=== PATIENT | male | born 1945 | race Caucasian/White ===

== ENCOUNTER 2021-05-18 13:36 | Outpatient (CLI) | payer MEDICARE, SELFPAY ==
--- NOTE | ~2021-05-18 | MR_ITS ---
EXAMINATION: MR abdomen wo/w con DATE: 05/18/2021 15:00 INDICATION: Kidney mass. TECHNIQUE: Magnetic resonance imaging (MRI) of the abdomen was performed without and with 15 mL Multi Radha intravenous contrast. Sequences included coronal T2-weighted FS FSE, coronal and axial FIESTA F S, coronal LAVA-flex, axial LAVA, axial T2-weighted FSE, axial T1-weighted dual-echo FSPGR, axial STI R FSE, and axial DWI. Postcontrast sequences included coronal LAVA-flex and a time course of axial LA VA. COMPARISON: CT lumbar spine 12/23/2016 FINDINGS: The liver and spleen are normal. There are changes of cholecystectomy. The pancreas are normal. There are chronic masses in the adrenal glands measuring up to 18 mm on the left containing microscopic fa t, consistent with adenomas. There are simple cysts and hemorrhagic cysts in the kidneys measuring up to 13 mm on the right. There is a 2.3 cm enhancing mass in right kidney upper pole directed laterall y, consistent with renal cell carcinoma. There are no dilated loops of bowel. There are no pathologic ally enlarged lymph nodes. There is no free intraperitoneal fluid. There are changes of posterior fus ion procedure in lumbar spine. IMPRESSION: 1. 2.3 cm enhancing mass in right kidney, consistent with renal cell carcinoma. Reviewed, dictated and finalized at location A.
[2021-05-18 14:26] LABS: Estimated Glomerular Filt Rate 49
== END 2021-05-18 13:37 | disposition home or self-care (01) ==
PROVIDERS: PCP Internal Medicine Geriatric Medicine; Visit Provider Urology
DX: N28.89 Other specified disorders of kidney and ureter (principal)
CPT/HCPCS: 74183; A9577

== ENCOUNTER 2022-05-07 19:03 | Emergency (ER) | payer MEDICARE, SELFPAY ==
[2022-05-07 19:08] VITALS: BP 151/90; PULSE 86; RESP 18; TEMP 36.3; O2SAT 98
--- NOTE | 2022-05-07 19:10 | ECG_ITS ---
Measurements Intervals [place] Rate: 80 P: 35 NC: 155 QRS: -52 QRSD: 150 T: 1 QT: 398 QTc: 462 Interpretive Statements SINUS RHYTHM RIGHT BUNDLE BRANCH BLOCK LEFT ANTERIOR FASCICULAR BLOCK BASELINE ARTIFACT- I, II, III, AVR, AVL, AVF, V3-V6 Electronically Signed On 05-08-2022 6:19:33 CDT by Sonny Dos Santos D.O.
--- NOTE | 2022-05-07 19:20 | ED.GENADULT ---
HPI - General Adult General Chief complaint: Psychiatric Symptoms Stated complaint: mental health eval Time Seen by Provider: 05/07/22 19:06 History of Present Illness HPI narrative: 76-year-old male presented to the emergency department for evaluation after making suicidal statements. Patient states over the last few months he has had increasing life stresses due to his 's health. She did have a fractured ankle and spent a prolonged amount of time at a longterm and that at his daughter's house. Patient states that he was at home alone with a dog during all that time and bonded with the dog. He states that today his was attempting to move a dresser and ultimately the dresser fell and landed on the dog potentially critically injuring it. Patient states he was too upset by the incident that he did not know how to process it. Patient reported that it may suicidal statements. Patient states he does have access to pills and does have a gun in the house. Family states that the patient did go for his guns and pills. 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 Related Data Allergies Allergy/AdvReac Type Severity Reaction Status Date / Time No Known Allergies Allergy Unverified 11/12/16 15:26 Review of Systems Review of Systems: CONSTITUTIONAL: Denies fever, chills, or sweats. EYES: Denies visual changes, redness, or discharge. ENT: Denies rhinorrhea, congestion, sore throat, or otalgia. CARDIOVASCULAR: Denies chest pain, palpitations, or edema. RESPIRATORY: Denies cough or dyspnea. GASTROINTESTINAL: Denies abdominal pain, nausea, vomiting, or diarrhea. GENITOURINARY: Denies dysuria or hematuria. SKIN: Denies rash or itching. MUSCULOSKELETAL: Denies back pain, joint pain, or myalgia. NEUROLOGIC: Denies headache, numbness, or weakness. PSYCHIATRIC: History of depression, no prior suicidal thoughts PMFSH Social History Social History Substance use type: does not use Exam Narrative: APPEARANCE: Well appearing, no pain, no distress, well-nourished. HEAD: normocephalic, atraumatic. EYES: PERRLA/EOMI, conjunctivae clear. NOSE: Normal no drainage. THROAT: Pharynx clear, no exudate. NECK: Supple. No adenopathy, no masses. RESPIRATORY: Airway patent, respirations nonlabored. Clear to auscultation bilaterally, no rales, rhonchi, wheezing. CARDIOVASCULAR: Regular rate and rhythm without murmurs rubs or gallops. ABDOMINAL: Soft, nontender, nondistended, normal bowel sounds MUSCULOSKELETAL: Moves all extremities. Strength/ROM intact, No edema, No calf tenderness. NEURO: Alert. Cranial nerves II through XII intact. Grossly intact SKIN: warm, dry. Normal Color Psych: Tearful Course Course Emergency Course: Patient was evaluated by the crisis counselor and deemed to be safe for discharge to home. This plan was discussed with family and they were also comfortable with the plan. Order for clear and present danger was placed. Patient received some Ativan in the emergency department he felt this was helpful. Patient was discharged with a small prescription for Ativan. Reevaluation(s) Reevaluation #1: Patient is medically cleared for inpatient psychiatric hospitalization as needed. Reevaluation #2: Patient was eval by the crisis counselor and was deemed safe for discharge to home. Patient did sign a safety agreement. Crisis counselor did discuss this with the patient's daughter. They do state that the firearms were removed from the home. Vital Signs Vital signs: Vital Signs Temperature 97.4 F L 05/07/22 19:08 Pulse Rate 86 05/07/22 19:08 Respiratory Rate 18 05/07/22 19:08 Blood Pressure 151/90 H 05/07/22 19:08 Pulse Oximetry 98 05/07/22 19:08 Temperature 97.4 F L 05/07/22 19:08 Pulse Rate 96 05/07/22 22:52 Respiratory Rate 18 05/07/22 22:52 Blood Pressure 152/90 H 05/07/22 22:52 Pulse Oximetry 97 05/07/22 22:52 Medical Decision Making Vital Signs Vital Signs: Daisy
[2022-05-07 19:25] LABS: Basophils Absolute Auto 0.1 K/mm3 (0.0-0.1); Basophils Percent Auto 0.5 % (0.2-1.2); Eosinophils Absolute Auto 0.3 K/mm3 (0-0.3); Eosinophils Percent Auto 2.4 % (0-4.4); Hematocrit 38.6 % (42.0-52.0); Hemoglobin 12.8 g/dL (14.0-18.0); Immature Granulocyte Absolute 0.04 K/mm3 (0.00-0.031); Immature Granulocyte Percent A 0.3 % (0-0.5); Lymphocytes Absolute Auto 1.34 K/mm3 (0.9-3.2); Lymphocytes Percent Auto 9.9 % (18.3-44.2); Mean Corpuscular HGB Conc 33.2 g/dl (32-36); Mean Corpuscular Hemoglobin 31.1 pg (26-34); Mean Corpuscular Volume 93.7 fl (80-100); Mean Platelet Volume 9.6 fl (7.4-10.4); Monocytes Absolute Auto 0.8 K/mm3 (0.1-0.6); Monocytes Percent Auto 5.6 % (2.6-8.5); Neutrophils Percent Auto 81.3 % (45.5-73.1); Platelet Count Result 368 k/mm3 (150-375); Red Blood Count 4.12 M/mm3 (4.6-6.20); Red Cell Distribution Width 13.4 % (11.5-14.5); White Blood Count 13.5 K/mm3 (4.5-10.0)
[2022-05-07 19:43] LABS: Acetaminophen < 10 ug/mL (10-30); Alanine Aminotransferase 36 U/L (6-50); Albumin Level 4.4 g/dL (3.5-5.1); Alkaline Phosphatase 85 U/L (38-126); Anion Gap 7 mmol/L (8-16); Aspartate Amino Transferase 35 U/L (17-59); Bilirubin,Total 0.4 mg/dL (0.2-1.3); Blood Urea Nitrogen 17 mg/dL (9-20); Calcium 8.6 mg/dL (8.4-10.2); Carbon Dioxide 25 mmol/L (22-30); Chloride 105 mmol/L (98-107); Estimated Glomerular Filt Rate 59; Ethanol < 10 mg/dL (<10); Glucose 149 mg/dL (65-110); Potassium 3.6 mmol/L (3.4-5.0); Salicylate < 1.0 mg/dL (2-20); Sodium 137 mmol/L (137-145)
[2022-05-07] MEDS: LORazepam (*CRX) 0.5 MG TABLET PO (19:47)
[2022-05-07 20:03] LABS: SARS-CoV-2 RNA PCR Negative
[2022-05-07 20:39] LABS: Appearance Urine Clear (Clear); Bilirubin Urine Negative (Negative); Blood Urine Negative (Negative); Color Urine Yellow (Yellow); Glucose Urine UA Negative (Negative); Ketones Urine 1+ mg/dL (Negative); Leukocyte Esterase Ur Negative LEU/UL (Negative); Nitrate Urine Negative (Negative); Protein Urine 1+ mg/dL (Negative); Specific Grav Ur >= 1.030 (1.001-1.035); Urobilinogen Urine 0.2 mg/dL (<2.0); pH Urine 5.5 (5.0-9.0)
[2022-05-07 20:49] LABS: Add Urine Microscopic? YES; Bacteria Urine Trace /hpf; Calcium Oxalate Crystals Urine Present /hpf; Mucus Urine Rare /lpf; WBC Urine 0-3 /hpf
[2022-05-07 20:53] LABS: Amphetamine Screen Urine Negative (Negative); Barbiturate Screen Urine Negative (Negative); Benzodiazepines Screen Urine Negative (Negative); Cannabinoid Screen Urine Negative (Negative); Cocaine Screen Urine Negative (Negative); Methadone Screen Urine Negative (Negative); Opiate Screen Urine Negative (Negative); Phencyclidine Screen Urine Negative (Negative)
--- NOTE | 2022-05-07 20:56 | PC.NURSE ---
Per MACIE Ellison, pt medically clear for evaluation.
--- NOTE | 2022-05-07 21:19 | PC.NURSE ---
Crisis immigration case worker ETA approx. 15min.
--- NOTE | 2022-05-07 21:48 | PC.NURSE ---
crisis at bedside with pt at this time.
[2022-05-07 22:52] VITALS: BP 152/90; PULSE 96; RESP 18; O2SAT 97
== END 2022-05-07 22:46 | disposition home or self-care (01) ==
PROVIDERS: Emergency Provider Emergency Medicine; PCP Family Medicine
DX: F32.9 Major depressive disorder, single episode, unspecified (principal); Z20.822 Contact with and (suspected) exposure to COVID-19
CPT/HCPCS: 36415; 80053; 80307; 81001; 84443; 85025; 93005; 99284; A9270; C9803; U0003; U0005

== ENCOUNTER 2022-08-23 08:31 | Outpatient (CLI) | payer MEDICARE, SELFPAY ==
--- NOTE | ~2022-08-23 | CT_ITS ---
EXAMINATION: CT lung screening DATE: 08/23/2022 09:01 INDICATION: lung cancer screening TECHNIQUE: Computed tomography (CT) of the chest was performed without intravenous contrast. Addition al 3D reconstructions utilizing coronal maximum intensity projection (MIP) were performed. Automated exposure control and iterative reconstruction technique were employed. The dose-length product was 17 8.45 mGy-cm. COMPARISON: None FINDINGS: Moderate emphysema in the upper lobes. Mild discoid atelectasis in the lingula in addition to a clinton l variant accessory fissure between the lingula and left upper lobe. There is additional atelectasis at the anterolateral lingula. Additional accessory fissure between the superior segment and basilar s egments of the right lower lobe. 2-3 mm left upper lobe nodule on series 4, image 49. 4 mm triangular intrafissural lymph node at the junction of the right major and minor fissures and couple additional tiny intrafissural lymph nodes on the left, the larger measuring 2-3 mm. No pneumonia, pulmonary ruthann ma or pleural effusion. Heart size is normal. Atherosclerotic coronary artery calcification. Very sma ll pericardial effusion. Fusiform ascending thoracic aortic aneurysm measuring up to 4.4 x 4.3 cm. No pathologically enlarged thoracic lymphadenopathy. Cholecystectomy clips at the gallbladder fossa. Postoperative change of prior partial nephrectomy at the upper pole of the right kidney. Bilateral adrenal adenomas measuring up to 1.6 cm on the right an d 1.7 cm and 2.0 cm on the left, which demonstrate signal dropout on opposed phase imaging on MRI celia ed 05/18/2021. Incompletely visualized C6-C7 anterior and posterior spinal fusion with lateral mass sc rews seen bilaterally at C6. Severe spondylosis at C6-C7. Mild to moderate thoracic spondylosis with chronic compression fractures with mild anterior vertebral body height loss at T3 and T7. IMPRESSION: 1. Lung-RADS category 2: Benign appearance or behavior. Continue annual screening with noncontrast lo w-dose chest CT in 12 months. 2. Moderate emphysema. 3. 4.4 cm ascending thoracic aortic aneurysm. 4. Very small pericardial effusion. Reviewed, dictated and finalized at location A. IMPRESSION: 1. Lung-RADS category 2: Benign appearance or behavior. Continue annual screeni ng with noncontrast low-dose chest CT in 12 months. 2. Moderate emphysema. 3. 4.4 cm ascending thoracic aortic aneurysm. 4. Very small pericardial effusion.
--- NOTE | ~2022-08-23 | CT_ITS ---
EXAMINATION: CT cervical spine wo con DATE: 08/23/2022 09:00 INDICATION: Neck pain. TECHNIQUE: Computed tomography (CT) of the cervical spine was performed without intravenous contrast. Automated exposure control and iterative reconstruction technique were employed. The dose-length pro duct was 457.18 mGy-cm. COMPARISON: None FINDINGS: There is 2 mm anterolisthesis of C7 on T1. Vertebral body heights are normal. There is inte rbody fusion at C3-C4 and C5-C6. There is mildly decreased disc height at C4-C5, severely decreased d isc height at C6-C7, and mildly decreased disc height at C7-T1. There are laminectomies at C3, C4, an d C5. There are changes of posterior fusion procedure from C3 to C6 with lateral mass screws. The fol lowing disc levels are specifically discussed: C2-C3: There is mild bilateral uncovertebral joint osteoarthritis. There is severe bilateral facet karrie int osteoarthritis. There is moderate right and mild left neural foraminal stenosis. There is mild ce ntral canal stenosis. C3-C4: There is moderate bilateral uncovertebral joint hypertrophy. There is mild bilateral facet zohaib nt hypertrophy. There is moderate bilateral neural foraminal stenosis. There is mild central canal st enosis with posterior decompression. C4-C5: There is mild bilateral uncovertebral joint osteoarthritis. There is no facet joint hypertroph y. There is no neural foraminal stenosis. There is no central canal stenosis. C5-C6: There is moderate bilateral uncovertebral joint hypertrophy. There is mild bilateral facet zohaib nt hypertrophy. There is mild right neural foraminal stenosis. There is mild central canal stenosis. C6-C7: There is severe bilateral uncovertebral joint osteoarthritis. There is severe bilateral facet joint osteoarthritis. There is mild bilateral neural foraminal stenosis. There is mild central canal stenosis. C7-T1: There is no uncovertebral joint osteoarthritis. There is severe bilateral facet joint osteoart hritis. There is mild bilateral neural foraminal stenosis. There is no central canal stenosis. IMPRESSION: 1. Severe cervical spondylosis. 2. Posterior fusion procedure from C3 to C6. Reviewed, dictated and finalized at location B.
== END 2022-08-23 08:32 | disposition home or self-care (01) ==
PROVIDERS: PCP Family Medicine; Visit Provider Physician Assistant Medical
DX: R06.00 Dyspnea, unspecified (principal); Z87.891 Personal history of nicotine dependence; Z98.890 Other specified postprocedural states; J43.9 Emphysema, unspecified; I31.39 Other pericardial effusion (noninflammatory); I71.20 Thoracic aortic aneurysm, without rupture, unspecified; M47.892 Other spondylosis, cervical region; Z98.1 Arthrodesis status
CPT/HCPCS: 71271; 72125

== ENCOUNTER 2022-10-06 10:36 | Outpatient (CLI) | payer MEDICARE, SELFPAY ==
--- NOTE | ~2022-10-06 | XR_ITS ---
XR chest 2V DATE: 10/06/2022 10:58 INDICATION: Malignant neoplasm of right kidney TECHNIQUE: 2 views COMPARISON: 08/23/2022 CT lung screening FINDINGS: Normal heart size. Is aortic calcification and unfolding. No hilar or mediastinal enlargeme nt. No pulmonary infiltrate or consolidation, pleural effusion or pulmonary vascular congestion or pn eumothorax. Chronic loss in height and anterior wedging of multiple thoracic vertebral bodies and degenerative sp urring of the thoracic spine. Old healed right rib fractures. Postoperative change of the cervical spine. Osteopenia. IMPRESSION: No active cardiopulmonary disease Reviewed, dictated and finalized at location B. NAL CLERK
--- NOTE | ~2022-10-06 | CT_ITS ---
EXAMINATION: CT abdomen wo/w con DATE: 10/06/2022 11:11 INDICATION: Leg and neoplasm of the right kidney. TECHNIQUE: Computed tomography (CT) of the abdomen and pelvis was performed without and with 100 cc O mnipaque 350 intravenous contrast. The dose-length product was 1061.91 mGy-cm. Automated exposure con trol and iterative reconstruction technique were employed. COMPARISON: None. FINDINGS: There are changes along the posterior lateral margin of the right kidney, consistent with p revious partial nephrectomy. There is a subtle 1 cm immediate density lesion along the lateral margin of the right kidney. There are additional small low-density lesions in both kidneys, many of which a re too small to characterize. The liver, spleen, pancreas, right adrenal gland are unremarkable. There is a low-density left adrena l mass measuring 2 cm, compatible with adenoma. Nonobstructive bowel gas pattern. No lymphadenopathy. There is atherosclerosis of the aorta. There is moderate lumbar spondylosis with grade 1 spondylolis thesis of the lower lumbar spine. No focal lytic or blastic lesions. IMPRESSION: 1. Intermediate density 1 cm right renal mass laterally. Recommend correlation with MRI to exclude un derlying abnormal enhancement. Reviewed, dictated and finalized at location A. AGENT IMPRESSION: 1. Intermediate density 1 cm right renal mass laterally. Recommend correlation with MRI to exclude underlying abnormal enhancement.
[2022-10-06 11:02] LABS: Estimated Glomerular Filt Rate 49
== END 2022-10-06 10:37 | disposition home or self-care (01) ==
PROVIDERS: PCP Family Medicine; Visit Provider Urology
DX: C64.1 Malignant neoplasm of right kidney, except renal pelvis (principal)
CPT/HCPCS: 71046; 74170; Q9967

== ENCOUNTER 2022-10-12 14:36 | Outpatient (CLI) | payer MEDICARE, SELFPAY ==
--- NOTE | 2022-10-12 14:56 | ECHO_ITS ---
Patient Info Name: Juan Montes Age: 77 years : 1945 Gender: Male Ht: 67 in Wt: 190 lbs BSA: 2.04 m2 HR: 76 bpm BP: 147 / 87 mmHg Technical Quality: Good Exam Date: 10/12/2022 3:28 PM Exam Location: [facility] Patient Status: Outpatient Admit Date: 10/12/2022 Staff Ordering Physician: Bailey Campos Software Validation Engineer: Whit Live RDCS Attending Provider: Ani Das MD Referring Physician: Beth CHAPMAN; Exam Type: CA echo doppler color flow Study Info Indications I71.2 - Thoracic aortic aneurysm, without rupture Complete two-dimensional, color flow and Doppler transthoracic echocardiogram is performed. Summary 1. Complete two-dimensional, color flow and Doppler transthoracic echocardiogram is performed. 2. Left ventricular chamber dimension is normal. 3. Left ventricular systolic function is normal, estimated at 60-65%. 4. The left ventricular diastolic function is grade I diastolic dysfunction. 5. E/e' 7 is not elevated. 6. There is mild aortic valve sclerosis. 7. The mitral valve has mildly calcified annulus. 8. The aortic root size at the sinus of Valsalva is borderline dilated at 3.9 cm. Left Ventricle E/e' 7 is not elevated. Left ventricular chamber dimension is normal. Left ventricular systolic function is normal, estimated at 60-65%. The left ventricular diastolic function is grade I diastolic dysfunction. Right Ventricle Right ventricular systolic function is normal and with normal TAPSE 1.9 cm. Right ventricular chamber dimension is normal. Left Atria Left atrial chamber dimension is normal. Right Atria Right atrial chamber dimension is normal. Aortic Valve The aortic valve is trileaflet. There is mild aortic valve sclerosis. There is no aortic valve stenosis. There is no aortic valve regurgitation. Pulmonic Valve There is no pulmonic regurgitation. Mitral Valve The mitral valve has mildly calcified annulus. There is no mitral valve stenosis. There is no mitral valve regurgitation. Tricuspid Valve There is no tricuspid valve regurgitation. Pericardium/Pleural There is no pericardial effusion. Inferior Vena Cava Normal inferior vena cava with >50% collapse upon inspiration consistent with normal right atrial pressure, 5 mmHg. Aorta The aortic root size at the sinus of Valsalva is borderline dilated at 3.9 cm. Left Ventricular Outflow Tract Name Value Normal LVOT 2D LVOT Diameter 2.0 cm LVOT Doppler LVOT Peak Gradient 5 mmHg LVOT Mean Gradient 3 mmHg LVOT VTI 19 cm LVOT VTI/AV VTI Ratio 0.8 LVOT Stroke Volume 60 ml LVOT CO 4.1 l/min LVOT CI 2.0 l/min/m2 Mitral Valve Name Value Normal MV Doppler
== END 2022-10-12 14:37 | disposition home or self-care (01) ==
PROVIDERS: PCP Family Medicine; Visit Provider Family Medicine
DX: I71.20 Thoracic aortic aneurysm, without rupture, unspecified (principal)
CPT/HCPCS: 93306

== ENCOUNTER 2022-10-24 13:28 | Outpatient (CLI) | payer MEDICARE, SELFPAY ==
[2022-10-24 14:03] LABS: Hematocrit 39.9 % (42.0-52.0); Hemoglobin 13.4 g/dL (14.0-18.0); Mean Corpuscular HGB Conc 33.6 g/dl (32-36); Mean Corpuscular Hemoglobin 31.3 pg (26-34); Mean Corpuscular Volume 93.2 fl (80-100); Mean Platelet Volume 9.6 fl (7.4-10.4); Platelet Count Result 364 k/mm3 (150-375); Red Blood Count 4.28 M/mm3 (4.6-6.20); Red Cell Distribution Width 12.9 % (11.5-14.5)
[2022-10-24 16:01] LABS: Hemoglobin A1C 5.5 % (<5.7)
[2022-10-24 18:12] LABS: Alanine Aminotransferase 33 U/L (6-50); Albumin Level 4.3 g/dL (3.5-5.1); Alkaline Phosphatase 76 U/L (38-126); Anion Gap 7 mmol/L (8-16); Aspartate Amino Transferase 35 U/L (17-59); Bilirubin,Total 0.7 mg/dL (0.2-1.3); Blood Urea Nitrogen 15 mg/dL (9-20); Calcium 8.7 mg/dL (8.4-10.2); Carbon Dioxide 28 mmol/L (22-30); Chloride 107 mmol/L (98-107); Cholesterol 164 mg/dL (0-200); Estimated Glomerular Filt Rate > 60; Glucose 117 mg/dL (65-110); HDL Direct 32 mg/dL; Potassium 3.9 mmol/L (3.4-5.0); Sodium 142 mmol/L (137-145); Triglycerides 125 mg/dL (<150)
[2022-10-24 18:24] LABS: LDL Cholesterol Direct 102 mg/dL
[2022-10-24 18:41] LABS: Prostate Specific Antigen 0.4 ng/mL (< OR = 4.0)
== END 2022-10-24 13:29 | disposition home or self-care (01) ==
PROVIDERS: PCP Family Medicine; Visit Provider Physician Assistant Medical
DX: R53.83 Other fatigue (principal); R73.03 Prediabetes; Z12.5 Encounter for screening for malignant neoplasm of prostate; E78.2 Mixed hyperlipidemia
CPT/HCPCS: 36415; 80053; 80061; 83036; 84153; 85027; G0103

== ENCOUNTER 2022-11-29 14:34 | Outpatient (CLI) | payer MEDICARE, SELFPAY ==
--- NOTE | ~2022-11-29 | MR_ITS ---
EXAMINATION: MR abdomen wo/w con DATE: 11/29/2022 15:51 INDICATION: Malignant neoplasm of the right kidney. TECHNIQUE: Magnetic resonance imaging (MRI) of the abdomen was performed without and with 17 mL Multi kelly intravenous contrast. Sequences included coronal T2-weighted SS-FSE, coronal and axial FS 2D-F IESTA, axial STIR FSE, axial T2-weighted SS-FSE, axial T2-weighted FS SS-FSE, axial diffusion-weighte d SE, axial dual-echo T1-weighted FSPGR, and axial and coronal T1-weighted LAVA. Postcontrast axial T 1-weighted LAVA images were obtained in a time course. Postcontrast coronal T1-weighted LAVA images w ere obtained. COMPARISON: CT dated 10/06/2022 and MRI dated 05/18/2021 FINDINGS: Heart size is normal. No pericardial or pleural effusion. Status post cholecystectomy with magnetic f ield artifact associated with cholecystectomy clips the gallbladder fossa. Liver, spleen and pancreas are normal. There is signal dropout on opposed phase images consistent with intracellular lipid with in bilateral adrenal adenomas which measure 2.1 cm on the left and 1.6 cm on the right. Postoperative change of prior partial nephrectomy at the upper pole of the left kidney with subtle linear regions of metallic magnetic field artifact associated with likely suture lines. There are few small bilatera l nonenhancing renal cysts, the majority simple appearing T2 hyperintense cysts as well as a few T1 h yperintense, T2 hypointense proteinaceous/hemorrhagic cysts. Furthermore these all appear unchanged s iva the previous MRI dated 06/05/2021obtained prior to the nephrectomy. This includes the lesion of c oncern identified on the prior CT laterally in the right kidney position inferior to the nephrectomy bed. No new abnormal enhancing soft tissue to suggest residual or locally recurrent disease. No patho logically enlarged abdominal lymphadenopathy. Visualized portions of the bowels are unremarkable. Add itional metallic magnetic field artifact associated with bilateral vertical tylor and pedicle screws fo r and L4-L5 posterior spinal fusion. Normal bone marrow signal with no abnormally enhancing lesions. 1. Expected postoperative changes of a partial nephrectomy at the upper pole of the right kidney with no evident residual, locally recurrent or metastatic disease. Reviewed, dictated and finalized at location L. R TAXI BOAT MATE
== END 2022-11-29 14:35 | disposition home or self-care (01) ==
PROVIDERS: PCP Family Medicine; Visit Provider Urology
DX: C64.1 Malignant neoplasm of right kidney, except renal pelvis (principal); Z90.5 Acquired absence of kidney
CPT/HCPCS: 74183; A9577

== ENCOUNTER 2023-04-17 08:46 | Outpatient (CLI) | payer MEDICARE, SELFPAY ==
--- NOTE | ~2023-04-17 | CT_ITS ---
EXAMINATION: CTA chest DATE: 04/17/2023 09:34 INDICATION: Aneurysm of ascending aorta without rupture. TECHNIQUE: Computed tomographic angiography (CTA) of the chest was performed with 100 mL Omnipaque-35 0 intravenous contrast. Automated exposure control and iterative reconstruction technique were employ ed. The dose-length product was 693.61 mGy-cm. Maximum intensity projection 3D-reconstructions of the aorta and other arteries were constructed by the technologist on a separate workstation. COMPARISON: Chest CT 08/23/2022 FINDINGS: There is moderate emphysema. There is mild atelectasis bilaterally. No pleural effusion. Th e heart size is normal. There are coronary artery calcifications. No pericardial effusion. Aortic ath erosclerosis is noted. The aorta measures 4.0 cm at the sinuses of Valsalva, 3.5 cm at the sinotubula r junction, 4.2 cm in the mid ascending aorta, 3.3 cm at the aortic isthmus, and 3.1 cm in the mid de scending aorta. There are changes of cholecystectomy. There is focal scarring in right kidney that ma y be changes of ablation or partial nephrectomy. There are old fractures of right sixth and seventh r ibs. There is severe cervical spondylosis and mild thoracic spondylosis. There is mild chronic height loss of multiple vertebral bodies. IMPRESSION: 1. Stable ectasia of ascending aorta measuring 4.2 cm. 2. Moderate emphysema. Reviewed, dictated and finalized at location A.
[2023-04-17 09:17] LABS: Estimated Glomerular Filt Rate 54
== END 2023-04-17 08:47 | disposition home or self-care (01) ==
PROVIDERS: PCP Family Medicine; Visit Provider Thoracic Surgery (Cardiothoracic Vascular Surgery)
DX: I71.21 Aneurysm of the ascending aorta, without rupture (principal); J43.9 Emphysema, unspecified
CPT/HCPCS: 71275; Q9967

== ENCOUNTER 2023-05-10 10:51 | Outpatient (CLI) | payer MEDICARE, SELFPAY ==
[2023-05-10 11:50] LABS: Hematocrit 41.1 % (42.0-52.0); Hemoglobin 13.6 g/dL (14.0-18.0); Mean Corpuscular HGB Conc 33.1 g/dl (32-36); Mean Corpuscular Hemoglobin 30.5 pg (26-34); Mean Corpuscular Volume 92.2 fl (80-100); Mean Platelet Volume 10.1 fl (7.4-10.4); Platelet Count Result 325 k/mm3 (150-375); Red Blood Count 4.46 M/mm3 (4.6-6.20); Red Cell Distribution Width 13.2 % (11.5-14.5); White Blood Count 10.2 K/mm3 (4.5-10.0)
[2023-05-10 11:51] LABS: Alanine Aminotransferase 24 U/L (6-50); Albumin Level 4.2 g/dL (3.5-5.1); Alkaline Phosphatase 70 U/L (38-126); Anion Gap 5 mmol/L (8-16); Aspartate Amino Transferase 26 U/L (17-59); Bilirubin,Total 0.7 mg/dL (0.2-1.3); Blood Urea Nitrogen 21 mg/dL (9-20); Calcium 8.9 mg/dL (8.4-10.2); Carbon Dioxide 27 mmol/L (22-30); Chloride 107 mmol/L (98-107); Cholesterol 188 mg/dL (0-200); Estimated Glomerular Filt Rate 54; Glucose 118 mg/dL (65-110); HDL Direct 28 mg/dL; Potassium 3.9 mmol/L (3.4-5.0); Sodium 139 mmol/L (137-145); Triglycerides 222 mg/dL (<150)
[2023-05-10 12:07] LABS: LDL Cholesterol Direct 119 mg/dL
[2023-05-10 12:20] LABS: Prostate Specific Antigen 0.3 ng/mL (< OR = 4.0)
== END 2023-05-10 10:52 | disposition home or self-care (01) ==
LOC: ANHLAB 10:52
PROVIDERS: PCP Family Medicine; Visit Provider Physician Assistant Medical
DX: R53.83 Other fatigue (principal); E78.2 Mixed hyperlipidemia; Z12.5 Encounter for screening for malignant neoplasm of prostate
CPT/HCPCS: 36415; 80053; 80061; 84153; 85027; G0103

== ENCOUNTER 2023-06-28 14:01 | Outpatient (CLI) | payer MEDICARE, SELFPAY ==
[2023-06-28 16:18] LABS: Hemoglobin A1C 5.5 % (<5.7)
[2023-06-28 17:07] LABS: Hepatitis C Virus Antibody Negative (Negative)
== END 2023-06-28 14:02 | disposition home or self-care (01) ==
LOC: ANHLAB 14:03
PROVIDERS: PCP Family Medicine; Visit Provider Physician Assistant Medical
DX: R73.03 Prediabetes (principal); Z11.59 Encounter for screening for other viral diseases
CPT/HCPCS: 36415; 83036; 86803

== ENCOUNTER 2023-07-12 13:11 | Outpatient (CLI) | payer MEDICARE, SELFPAY ==
[2023-07-12 14:24] LABS: Influenza A QL RT-PCR Negative (Negative); Influenza B QL RT-PCR Negative (Negative); RSV RNA, RT-PCR Negative (Negative); SARS-CoV-2 RNA PCR Positive (Negative)
== END 2023-07-12 13:12 | disposition home or self-care (01) ==
LOC: ANHLAB 13:12
PROVIDERS: PCP Family Medicine; Visit Provider Physician Assistant
DX: Z20.822 Contact with and (suspected) exposure to COVID-19 (principal); U07.1 COVID-19
CPT/HCPCS: 87637

== ENCOUNTER 2023-09-22 13:20 | Outpatient (CLI) | payer MEDICARE, SELFPAY ==
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
== END 2023-09-22 13:21 | disposition home or self-care (01) ==
PROVIDERS: PCP Family Medicine; Visit Provider Physician Assistant Medical
DX: M50.323 Other cervical disc degeneration at C6-C7 level (principal)
CPT/HCPCS: 72040; 72050

== ENCOUNTER 2023-10-23 13:39 | Outpatient (CLI) | payer MEDICARE, SELFPAY ==
--- NOTE | ~2023-10-23 | MR_ITS ---
MRI of the abdomen: Clinical indication: Right renal cell carcinoma. Technique: Coronal SSFSE ARC, WATER:coronal LAVA-FLEX, Coronal 2D FIESTA FatSat, Axial SSFSE BH ARC, Axial 3D DualEcho BH, Axial SSFSE-IR, Axial DWI b=500, Axial 2D FIESTA FatSat, pre and dynamic postco ntrast Axial LAVA ARC, postcontrast Coronal In and Opposed phase LAVA FLEX. Following intravenous adm inistration of 18 cc MultiHance gadolinium, T1-weighted fat-sat imaging was performed in the axial an d coronal planes. COMPARISON: 11/29/2022 Findings: Gallbladder is absent. The common bile duct is normal in course and caliber. No filling def ects are seen within the CBD. No evidence of intrahepatic biliary ductal dilatation. The pancreatic d uct is normal in size. Liver, spleen, pancreas, and left kidney appear normal. Stable bilateral adrenal nodules are present, with signal loss on out of phase images relative to in phase images, consistent with adrenal adenoma s. There is stable postoperative change at the upper pole the right kidney, consistent with partial n ephrectomy. The aorta and the paraaortic regions appear normal. Impression: No change from prior exam. No evidence for active malignancy or metastatic disease. Stable postoperat aaliyah change at the upper pole the right kidney. Bilateral adrenal adenomas, unchanged. Reviewed, dictated and finalized at [facility]. GER AREA Impression: No change from prior exam. No evidence for active malignancy or metastatic dise ase. Stable postoperative change at the upper pole the right kidney. Bilateral adrenal adenomas, unchanged.
--- NOTE | ~2023-10-23 | XR_ITS ---
XR chest 2V 10/23/2023 14:48 Indication: Malignant neoplasm of the right kidney. Procedure: 2 view chest Comparison: 10/06/2022 Findings: Heart size normal. No focal air space disease, pulmonary edema, pleural effusion or suspect ed pneumothorax. Impression: 1: No acute cardiopulmonary disease. Reviewed, dictated and finalized at location A. LY SERVICES WORKER Impression: 1: No acute cardiopulmonary disease.
== END 2023-10-23 13:40 | disposition home or self-care (01) ==
PROVIDERS: PCP Family Medicine; Visit Provider Urology
DX: C64.1 Malignant neoplasm of right kidney, except renal pelvis (principal); D35.01 Benign neoplasm of right adrenal gland; D35.02 Benign neoplasm of left adrenal gland
CPT/HCPCS: 71046; 74183; A9577

== ENCOUNTER 2023-11-08 10:34 | Outpatient (CLI) | payer MEDICARE, SELFPAY ==
[2023-11-08 11:18] LABS: Hemoglobin A1C 5.6 % (<5.7)
[2023-11-08 11:20] LABS: Alanine Aminotransferase 24 U/L (6-50); Albumin Level 3.9 g/dL (3.5-5.1); Alkaline Phosphatase 66 U/L (38-126); Anion Gap 10 mmol/L (8-16); Aspartate Amino Transferase 33 U/L (17-59); Bilirubin,Total 0.7 mg/dL (0.2-1.3); Blood Urea Nitrogen 13 mg/dL (9-20); Calcium 8.8 mg/dL (8.4-10.2); Carbon Dioxide 28 mmol/L (22-30); Chloride 103 mmol/L (98-107); Cholesterol 178 mg/dL (0-200); Estimated Glomerular Filt Rate > 60; Glucose 96 mg/dL (65-110); HDL Direct 30 mg/dL; Potassium 3.4 mmol/L (3.4-5.0); Sodium 141 mmol/L (137-145); Triglycerides 200 mg/dL (<150)
[2023-11-08 11:30] LABS: LDL Cholesterol Direct 107 mg/dL
[2023-11-08 11:50] LABS: Prostate Specific Antigen 0.4 ng/mL (< OR = 4.0)
== END 2023-11-08 10:35 | disposition home or self-care (01) ==
LOC: ANHLAB 10:36
PROVIDERS: PCP Family Medicine; Visit Provider Physician Assistant Medical
DX: E78.2 Mixed hyperlipidemia (principal); Z12.5 Encounter for screening for malignant neoplasm of prostate; R73.03 Prediabetes
CPT/HCPCS: 36415; 80053; 80061; 83036; 84153; G0103

== ENCOUNTER 2024-04-08 13:45 | Outpatient (CLI) | payer MEDICARE, SELFPAY ==
--- NOTE | ~2024-04-08 | CT_ITS ---
EXAMINATION: CTA chest DATE: 04/08/2024 14:26 INDICATION: Aneurysm of ascending aorta without rupture. TECHNIQUE: Computed tomographic angiography (CTA) of the chest was performed with 100 mL Omnipaque-35 0 intravenous contrast. Automated exposure control and iterative reconstruction technique were employ ed. The dose-length product was 662.10 mGy-cm. Maximum intensity projection 3D-reconstructions of the aorta and other arteries were constructed by the technologist on a separate workstation. COMPARISON: Chest CT 04/17/2023 FINDINGS: There is moderate emphysema. There is mild atelectasis bilaterally. No pleural effusion. Th e heart size is normal. There are coronary artery calcifications. No pericardial effusion. The aorta measures 4.0 cm at the sinuses of Valsalva, 3.2 cm at the sinotubular junction, 4.1 cm in mid ascendi ng aorta, 3.0 cm at the aortic isthmus, and 3.3 cm in mid descending aorta. There is focal volume los s of right kidney. There is cortical thinning of the kidneys. There are cysts in the kidneys measurin g up to 11 mm on the left. There are masses in the adrenal glands measuring up to 2.1 cm on the left measuring soft tissue attenuation without change in size, likely adenomas. 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 There are changes of posterior fusion procedure in cervi leigh ann spine. There are chronic compression fractures of T3, T6, and T7. There is moderate thoracic spon dylosis. IMPRESSION: 1. Stable ectasia of ascending aorta measuring 4.1 cm. 2. Moderate emphysema. Reviewed, dictated and finalized at location A.
[2024-04-08 14:20] LABS: Estimated Glomerular Filt Rate 49
== END 2024-04-08 13:46 | disposition home or self-care (01) ==
PROVIDERS: PCP Family Medicine; Visit Provider Thoracic Surgery (Cardiothoracic Vascular Surgery)
DX: I71.21 Aneurysm of the ascending aorta, without rupture (principal); J43.9 Emphysema, unspecified
CPT/HCPCS: 71275; Q9967

== ENCOUNTER 2024-04-16 12:36 | Outpatient (CLI) | payer MEDICARE, SELFPAY ==
[2024-04-16 13:09] LABS: Hematocrit 39.8 % (42.0-52.0); Hemoglobin 13.3 g/dL (14.0-18.0); Mean Corpuscular HGB Conc 33.4 g/dl (32-36); Mean Corpuscular Hemoglobin 31.6 pg (26-34); Mean Corpuscular Volume 94.5 fl (80-100); Mean Platelet Volume 9.8 fl (7.4-10.4); Platelet Count Result 354 k/mm3 (150-375); Red Blood Count 4.21 M/mm3 (4.6-6.20); Red Cell Distribution Width 12.8 % (11.5-14.5); White Blood Count 9.8 K/mm3 (4.5-10.0)
[2024-04-16 13:17] LABS: Alanine Aminotransferase 25 U/L (6-50); Albumin Level 4.1 g/dL (3.5-5.1); Alkaline Phosphatase 73 U/L (38-126); Anion Gap 6 mmol/L (4-12); Aspartate Amino Transferase 34 U/L (17-59); Bilirubin,Total 0.8 mg/dL (0.2-1.3); Blood Urea Nitrogen 14 mg/dL (9-20); Calcium 8.9 mg/dL (8.4-10.2); Carbon Dioxide 28 mmol/L (22-30); Chloride 106 mmol/L (98-107); Cholesterol 173 mg/dL (0-200); Estimated Glomerular Filt Rate 53; Glucose 119 mg/dL (65-110); HDL Direct 34 mg/dL; Potassium 3.8 mmol/L (3.4-5.0); Sodium 140 mmol/L (137-145); Triglycerides 204 mg/dL (<150)
[2024-04-16 13:28] LABS: LDL Cholesterol Direct 112 mg/dL
== END 2024-04-16 12:37 | disposition home or self-care (01) ==
LOC: ANHLAB 12:37
PROVIDERS: PCP Family Medicine; Visit Provider Physician Assistant Medical
DX: R53.83 Other fatigue (principal); E78.2 Mixed hyperlipidemia; I10 Essential (primary) hypertension; I71.20 Thoracic aortic aneurysm, without rupture, unspecified
CPT/HCPCS: 36415; 80053; 80061; 85027

== ENCOUNTER 2024-10-09 12:33 | Outpatient (CLI) | payer MEDICARE, SELFPAY ==
[2024-10-09 13:10] LABS: Basophils Absolute Auto 0.1 K/mm3 (0.0-0.1); Eosinophils Absolute Auto 0.7 K/mm3 (0-0.3); Eosinophils Percent Auto 7.8 % (0-4.4); Hematocrit 40.2 % (42.0-52.0); Hemoglobin 13.3 g/dL (14.0-18.0); Immature Granulocyte Absolute 0.03 K/mm3 (0.00-0.031); Immature Granulocyte Percent A 0.3 % (0-0.5); Lymphocytes Absolute Auto 1.85 K/mm3 (0.9-3.2); Mean Corpuscular HGB Conc 33.1 g/dl (32-36); Mean Corpuscular Hemoglobin 30.9 pg (26-34); Mean Corpuscular Volume 93.5 fl (80-100); Mean Platelet Volume 9.8 fl (7.4-10.4); Monocytes Absolute Auto 0.8 K/mm3 (0.1-0.6); Monocytes Percent Auto 8.6 % (2.6-8.5); Neutrophils Absolute Auto 5.4 K/mm3 (1.3-6.7); Neutrophils Percent Auto 61.3 % (45.5-73.1); Platelet Count Result 347 k/mm3 (150-375); Red Cell Distribution Width 13.2 % (11.5-14.5); White Blood Count 8.8 K/mm3 (4.5-10.0)
[2024-10-09 13:40] LABS: Alanine Aminotransferase 22 U/L (6-50); Albumin Level 4.2 g/dL (3.5-5.1); Alkaline Phosphatase 71 U/L (38-126); Anion Gap 4 mmol/L (4-12); Aspartate Amino Transferase 37 U/L (17-59); Bilirubin,Total 0.9 mg/dL (0.2-1.3); Blood Urea Nitrogen 14 mg/dL (9-20); Calcium 8.7 mg/dL (8.4-10.2); Carbon Dioxide 26 mmol/L (22-30); Chloride 108 mmol/L (98-107); Cholesterol 176 mg/dL (0-200); Estimated Glomerular Filt Rate 58; Glucose 108 mg/dL (65-110); HDL Direct 35 mg/dL; Potassium 3.8 mmol/L (3.4-5.0); Sodium 138 mmol/L (137-145); Triglycerides 186 mg/dL (<150)
[2024-10-09 13:51] LABS: LDL Cholesterol Direct 102 mg/dL
[2024-10-09 14:20] LABS: Iron 179 ug/dL (49-181)
[2024-10-09 14:32] LABS: Percent Iron Saturation 58 % (20-50)
[2024-10-09 23:19] LABS: Hemoglobin A1C 5.3 % (<5.7)
== END 2024-10-09 12:34 | disposition home or self-care (01) ==
LOC: ANHLAB 12:34
PROVIDERS: PCP Family Medicine; Visit Provider Family Medicine
DX: D64.9 Anemia, unspecified (principal); R53.83 Other fatigue; Z13.1 Encounter for screening for diabetes mellitus; I10 Essential (primary) hypertension; E78.2 Mixed hyperlipidemia
CPT/HCPCS: 36415; 80053; 80061; 82728; 83036; 83540; 83550; 84443; 85025

== ENCOUNTER 2024-11-24 12:34 | Outpatient (CLI) | payer MEDICARE, SELFPAY ==
--- NOTE | ~2024-11-24 | XR_ITS ---
CHEST RADIOGRAPH, PA AND LATERAL CLINICAL HISTORY: Malignant neoplasm of right kidney, except renal pelvis . COMPARISON: 10/23/2023 TECHNIQUE: PA and lateral views of the chest. FINDINGS The cardiomediastinal silhouette is unremarkable. The lungs are clear. Visualized osseous structures and soft tissues are unremarkable. IMPRESSION: No focal infiltrate or effusion. Reviewed, dictated and finalized at location A. ING INSPECTOR
--- NOTE | ~2024-11-24 | MR_ITS ---
MRI of the abdomen: Clinical indication: Renal malignancy. Technique: Coronal SSFSE ARC, WATER:coronal LAVA-FLEX, Coronal 2D FIESTA FatSat, Axial SSFSE BH ARC, Axial 3D DualEcho BH, Axial SSFSE-IR, Axial DWI b=500, Axial 2D FIESTA FatSat, pre and dynamic postco ntrast Axial LAVA ARC, postcontrast Coronal In and Opposed phase LAVA FLEX. Following intravenous adm inistration of 18 cc MultiHance gadolinium, T1-weighted fat-sat imaging was performed in the axial an d coronal planes. COMPARISON: 10/23/2023 Findings: Gallbladder absent. The common bile duct is normal in course and caliber. No filling defect s are seen within the CBD. No evidence of intrahepatic biliary ductal dilatation. The pancreatic duct is normal in size. There are stable bilateral adrenal nodules, left larger than right, with signal loss on out of phase images relative to in phase images, consistent with bilateral adrenal adenomas. There are stable post operative change at the right kidney, related to prior partial nephrectomy. There are small simple an d hemorrhagic/proteinaceous left renal cysts. No suspicious renal lesions are identified. Liver, spleen, and pancreas appear normal. The aorta and the paraaortic regions appear normal. Impression: No evidence for recurrent malignancy or metastatic disease. Stable postoperative change right kidney. Stable bilateral adrenal adenomas. Reviewed, dictated and finalized at [facility]. WRAPPER Impression: No evidence for recurrent malignancy or metastatic disease. Stable postoperativ e change right kidney. Stable bilateral adrenal adenomas.
== END 2024-11-24 12:35 | disposition home or self-care (01) ==
PROVIDERS: PCP Family Medicine; Visit Provider Urology
DX: C64.1 Malignant neoplasm of right kidney, except renal pelvis (principal); D35.02 Benign neoplasm of left adrenal gland; D35.01 Benign neoplasm of right adrenal gland; Z98.890 Other specified postprocedural states
CPT/HCPCS: 71046; 74183; A9577

== ENCOUNTER 2025-03-27 13:26 | Emergency (ER) | payer MEDICARE, SELFPAY ==
--- NOTE | ~2025-03-27 | CT_ITS ---
CT lumbar spine wo con Ordering provider: Bibi Yanes PA-C History: 79 years Male with . pain in lower back into legs, weakness in legs . Comparison: None. Technique: CT lumbar spine without contrast. Automated exposure control and iterative reconstruction technique were employed. The dose-length product was 534.07 mGy-cm. FINDINGS: VERTEBRAE: Anterolisthesis at the level of L3-L4. Minimal anterolisthesis also seen at the level of L 4-L5. Postoperative changes at the level of L4-L5. Otherwise, Normal height and alignment. No subluxa tion or visible acute fracture. Degenerative changes of the spine. DISC SPACES: Narrowing of the disc L2-L3, L3-L4, L4-L5. Facet joint disease at the level of L3-L4, L4 -L5 and L5-S1. Bibasilar T12-L1: No stenosis. Mild diffuse disc bulge L1-L2: No stenosis. Mild diffuse disc bulge. L2-L3: No stenosis. Diffuse disc bulge. Narrowing of the foramina with root compression on both side s. L3-L4: No stenosis. Diffuse disc bulge with bilateral narrowing of the foramina and the root compress ion. L4-L5: No stenosis. Diffuse disc bulge with bilateral narrowing of the foramina with nerve root comp ression L5-S1: No stenosis. Diffuse disc bulge with bilateral narrowing of the foramina. PARASPINOUS SOFT TISSUES: Mild atheromatous disease of the abdominal aorta. Right adrenal adenoma shiloh suring 1.2 x 1.4 cm. Bilateral sacroiliacs. IMPRESSION: No acute osseous abnormality. Multilevel degenerative disc disease. Multilevel intervertebral foraminal narrowing with root kelvin meredith. MRI is better for evaluation. Right adrenal adenoma. No follow-up advised unless clinically warranted. Reviewed, dictated and finalized at location A. IMPRESSION: No acute osseous abnormality. Multilevel degenerative disc disease. Multilevel intervertebral foraminal narro wing with root compression. MRI is better for evaluation. Right adrenal adenoma. No follow-up advised unless clinically warranted.
--- OUTSIDE RECORDS SUMMARY | 2025-03-27 13:29 | XMS_ITS | Encounter Summary ---
Author Organization [facility] Address [address] [place] [address] Care Team Providers Care Wheat Grower Name Role Phone Unavailable Primary Care Provider Unavailabl e Encounter Details Date Type Department Care Team (Late st Contact Info) Description 07/27/2022 Lab Requisition [facility] DermPath Lab [address] [place] [address] Riley Navarro MD [address] [address] Social History Tobacco Use Types Packs/Day Years Used Date Smoking Tobacco: Never Assessed Sex and Gender Information Value Date Recorded Sex Assigned at Not on file 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 Gender Identity Not on file Sexual Orientation Not on file documented as of this encounter Plan of Treatment Not on file documented as of this encounter Procedures Procedure Name Priority Date/Time Associated Diagnosis Comments DERMATOPATHOLOGY Routine 07/26/2022 12:0 0 AM CDT documented in this encounter Results * DERMATOPATHOLOGY (07/26/2022 12:00 AM CDT) Case Report Dermatopathology Report Case: [id number] Authorizing Provider: Riley Navarro MD Collected: 07/26/2022 12:00 AM Ordering Location: [facility] DermPath Lab Received: 07/27/2022 04:33 PM Pathologist: Lorie Durham MD Specimen: Skin, mid left upper eyelid post to eyelash line 2 3:56 PM CDT DERMATOPATHOLOGY LABORATORY Final Diagnosis Specimen A. SKIN, mid left upper eyelid post to eyelash line: BENIGN VERRUCOUS KERATOSIS, INFLAMED; SUPERFICIAL PORTIONS OF (L82.1) (see microscopic description) 2 3:56 PM CDT DERMATOPATHOLOGY LABORATORY at 1556 CDT Clinical History R/O SCC,BCC 2 3:56 PM CDT DERMATOPATHOLOGY LABORATORY Gross Description Specimen A: Received is one formalin filled container labeled with the patient's name and designated mid left upper eyelid post to eyelash line. The specimen consists of a shave biopsy measuring 4x4x3 mm. Jar 0. 2 3:56 PM CDT DERMATOPATHOLOGY LABORATORY Microscopic Description Specimen A. SKIN, mid left upper eyelid post to eyelash line: Sections show superficial portions of skin with hyperkeratosis, papillomatosis, hypergranulosis, and acanthosis. Ki67 immunostain is positive in scattered lower level intraepidermal keratinocytes. Inflammatory cells are present within the dermis. These histological findings can be seen in a verruca vulgaris or a seborrheic keratosis. Additional deeper sections were obtained and reviewed. 2 3:56 PM CDT DERMATOPATHOLOGY LABORATORY Disclaimer An external and internal positive and negative controls are appropriate for the histochemical, immunohistochemical and immunofluorescence stain(s) in this case (if any), except where stated explicitly. The performance characteristics of the stain(s) cited in this report were developed and its performance characteristic determined by the Dermatopathology Laboratory at [facility], directed by Dr. Luis Mendoza. These tests need not be, and therefore are not, approved by the [place] Food and Drug Administration. The tests are used for clinical purposes. Billing Codes Specimen Charges Stain Charges 29732 1 12719 1 2 3:56 PM CDT DERMATOPATHOLOGY LABORATORY Embedded Images 2 3:56 PM CDT DERMATOPATHOLOGY LABORATORY Pathology/Cytolog y TISSUE SPECIMEN FROM SKIN / Unknown 07/26/2022 07/27/2022 4:33 PM CDT Riley Navarro MD LAB - PATHOLOGY/CYTOLOGY ORD ERABLES Final Result DERMATOPATHOLOGY LABORATORY [facility] - Department of Dermatology [address], [address] [phone] documented in this encounter Visit Diagnoses Not on filedocumented in this encounter
--- OUTSIDE RECORDS SUMMARY | 2025-03-27 13:29 | XMS_ITS | Encounter Summary ---
Author Organization [facility] Address [address] [place] [address] Care Team Providers Care Train Gateman Name Role Phone Unavailable Primary Care Provider Unavailabl e Encounter Details Date Type Department Care Team (Late st Contact Info) Description 06/14/2024 Lab Requisition [facility] - DermPath Lab [address] [facility] [place] [id number] Riley Navarro MD [address] [place] [address] Social History Tobacco Use Types Packs/Day Years Used Date Smoking Tobacco: Never Assessed Sex and Gender Information Value Date Recorded Sex Assigned at Not on file 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 Gender Identity Not on file Sexual Orientation Not on file documented as of this encounter Plan of Treatment Not on file documented as of this encounter Procedures Procedure Name Priority Date/Time Associated Diagnosis Comments DERMATOPATHOLOGY Routine 06/12/2024 12:0 0 AM CDT documented in this encounter Results * DERMATOPATHOLOGY (06/12/2024 12:00 AM CDT) Case Report Dermatopathology Report Case: [id number] Authorizing Provider: Riley Navarro MD Collected: 06/12/2024 12:00 AM Ordering Location: [facility] Physician [facility] - Received: 06/14/2024 01:52 PM DermPath Lab Pathologist: Lorie [place] MD Specimens: A) - Skin, right paramidline lumbar back superior B) - Skin, right paramidline lumbar back inferior 12:48 PM CDT DERMATOPATHOLOGY LABORATORY Final Diagnosis Specimen A. SKIN, right paramidline lumbar back superior: DERMAL SCAR (L90.5) Specimen B. 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 The specimen consists of a shave biopsy measuring 8x7x1 mm. Jar 0. Specimen B: Received is one formalin filled container labeled with the patient's name and designated right paramidline lumbar back inferior. The specimen consists of a shave biopsy measuring 8x7x1 mm. Jar 0. 12:48 PM CDT DERMATOPATHOLOGY LABORATORY Microscopic Description Specimen A. SKIN, right paramidline lumbar back superior: There are fibroblasts and collagen bundles oriented parallel to the skin surface with elongated blood vessels, some of which are oriented perpendicular to the skin surface. Specimen B. SKIN, right paramidline lumbar back inferior: Sections show acanthosis, hypergranulosis, and hyperkeratosis. The papillary dermis is fibrotic. 12:48 PM CDT DERMATOPATHOLOGY LABORATORY Disclaimer An external and internal positive and negative controls are appropriate for the histochemical, immunohistochemical and immunofluorescence stain(s) in this case (if any), except where stated explicitly. The performance characteristics of the stain(s) cited in this report were developed and its performance characteristic determined by the Dermatopathology Laboratory at [facility], directed by Dr. Luis Mendoza. These tests need not be, and therefore are not, approved by the [place] Food and Drug Administration. The tests are used for clinical purposes. Billing Codes Specimen Charges Stain Charges 75303 49088 1 1 12:48 PM CDT DERMATOPATHOLOGY LABORATORY Embedded Images 12:48 PM CDT DERMATOPATHOLOGY LABORATORY Pathology/Cytology TISSUE SPECIMEN FROM SKIN / Unknown 06/12/2024 06/14/2024 1:52 PM CDT Miscellaneous samples (specimen) TISSUE SPECIMEN FROM SKIN / Unknown 06/12/2024 06/14/2024 1:52 PM CDT us Riley Navarro MD LAB - PATHOLOGY/CYTOLOGY ORD ERABLES Final Result DERMATOPATHOLOGY LABORATORY [facility] - Department of Dermatology [facility] Medicine [address] [place] [address], [address] [phone] documented in this encounter Visit Diagnoses Not on filedocumented in this encounter
--- OUTSIDE RECORDS SUMMARY | 2025-03-27 13:29 | XMS_ITS | Encounter Summary ---
Author Organization [facility] Address [address] [place] [address] Care Team Providers Care Bordereau Clerk Name Role Phone Yesica Palacios MD Primary Care Provider [phone] Yesica Palacios MD Primary Care Provider + [phone] Yesica Palacios MD Primary Care Provider [phone] Waqas Valle MD Unavailable [phone] Bart Perea MD Unavailable [phone] Riley Navarro MD Unavailable [phone] Kenji Escobar MD Unavailable + Rian Hampton MD Unavailable [phone] Piotr Alaniz MD Unavailable [phone] Bailey Campos Primary Care Provider [phone] Encounter Details Date Type Department Care Team (Late st Contact Info) Description 11/14/2016 Orders Only [facility] Provider, MD Herbie [address] [place] [address] Social History Tobacco Use Types Packs/Day Years Used Date Smoking Tobacco: Never Assessed Sex and Gender Information Value Date Recorded Sex Assigned at Not on file Legal Sex Male 1:22 AM ACTUARY Gender Identity Not on file Sexual Orientation Not on file documented as of this encounter Plan of Treatment Not on file documented as of this encounter Procedures Procedure Name Priority Date/Time Associated Diagnosis Comments CARDIOLOGY REPORT 11/14/2016 documented in this encounter Results * CARDIOLOGY REPORT (11/14/2016) Anatomical Region Laterality Modality Other Narrative 11/14/2016 Ordered by an unspecified provider. us Historical Provider [facility] Final Result documented in this encounter Visit Diagnoses Not on filedocumented in this encounter Care Teams Bordereau Clerk Relationship Specialty Start Date End Date Yesica Palacios MD PCP - General 02/03/17 09/06/23 Yesica Palacios MD PCP - General 01/09/17 02/02/17 Yesica Palacios MD PCP - General 05/05/15 01/08/17 Bailey Campos PA [address] [place], [place] [id number] PCP - General Family Medicine 09/07/23 Waqas Valle MD Neurosurgery 04/28/17 Bart Perea MD [address] [address] Urology 04/28/17 Riley Navarro MD [address] [place] [address] Dermatology 04/28/17 Kenji Escobar MD [address] [place] [address] Internal Medicine 04/28/17 Rian [place] MD [address] [place] [address] Referring Physician Ophthalmology 08/31/18 [place] [address] [place] [address] [place] [address] Consulting Physician Urology 08/03/21 documented as of this encounter
--- OUTSIDE RECORDS SUMMARY | 2025-03-27 13:29 | XMS_ITS | Encounter Summary ---
Author Organization [facility] Address [address] [facility] [place] [address] Care Team Providers Care Generator Repairer Name Role Phone Unavailable Primary Care Provider Unavailabl e Encounter Details Date Type Department Care Team (Late st Contact Info) Description 10/04/2018 Lab Requisition [facility] Care DermPath Lab [address] 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 Gender Identity Not on file Sexual Orientation Not on file documented as of this encounter Plan of Treatment Not on file documented as of this encounter Procedures Procedure Name Priority Date/Time Associated Diagnosis Comments DERMATOPATHOLOGY Routine 10/03/2018 12:0 0 AM BILLET GRINDER documented in this encounter Results * DERMATOPATHOLOGY (10/03/2018 12:00 AM BILLET GRINDER) Case Report Dermatopathology Report Case: [id number] Authorizing Provider: Riley Navarro MD Collected: 10/03/2018 12:00 AM Pathologist: Alexandria Mendoza MD Received: 10/04/2018 02:06 PM Specimen: Skin, left post neck 8 2:39 PM BILLET GRINDER DERMATOPATHOLOGY LABORATORY Final Diagnosis Specimen A. 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 8 2:39 PM BILLET GRINDER DERMATOPATHOLOGY LABORATORY Gross Description Specimen A: Received is one formalin filled container labeled with the patient's name and designated left post neck. The specimen consists of a shave biopsy measuring 9e8n1fs, bisected. Jar 0. 8 2:39 PM [facility] DERMATOPATHOLOGY LABORATORY Microscopic Description Specimen A. SKIN, left post neck: This dome-shaped lesion contains dilated blood vessels, coarse collagen bundles, and stellate fibroblasts. 8 2:39 PM [facility] DERMATOPATHOLOGY LABORATORY Disclaimer An external and internal positive and negative controls are appropriate for the histochemical, immunohistochemical and immunofluorescence stain(s) in this case (if any), except where stated explicitly. The performance characteristics of the stain(s) cited in this report were developed and its performance characteristic determined by the Dermatopathology Laboratory at [facility]. These tests need not be, and therefore are not, approved by the [place] Food and Drug Administration. The tests are used for clinical purposes. Billing Codes Specimen Charges Stain Charges 05783 1 8 2:39 PM [facility] DERMATOPATHOLOGY LABORATORY Embedded Images 8 2:39 PM [facility] DERMATOPATHOLOGY LABORATORY Pathology/Cytolog y TISSUE SPECIMEN FROM SKIN / Unknown 10/03/2018 10/04/2018 2:06 PM BILLET GRINDER Riley Navarro MD LAB - PATHOLOGY/CYTOLOGY ORD ERABLES Final Result DERMATOPATHOLOGY LABORATORY [facility] - Department of Dermatology [address] [place] [address], [address] [place] [address], [facility] [phone] documented in this encounter Visit Diagnoses Not on filedocumented in this encounter
--- OUTSIDE RECORDS SUMMARY | 2025-03-27 13:29 | XMS_ITS | Clinical Summary ---
Author Organization [facility] Address [address] [place] [address] Care Team Providers Care Hamper Maker Name Role Phone Waqas Valle MD Unavailable [phone] Bart Perea MD Unavailable [phone] Riley Navarro MD Unavailable [phone] Kenji Escobar MD Unavailable + Rian Hampton MD Unavailable [phone] Piotr Alaniz MD Unavailable [phone] Bailey Campos Primary Care Provider [phone] Allergies Active Allergy Reactions Criticality Noted Date Comments No Known Allergies Other (See comments) Low Reaction: Medications VIT A/VIT C/VIT E/ZINC/COPPER (PRESERVISION AREDS ORAL)Indication s:Cervical disc disorder at C4-C5 level with myelopathy Take 1 tablet by mouth daily. Dr beatty at the retina inst Active multivitamin with minerals tabletIndicatio ns:Cervical disc disorder at C4-C5 level with myelopathy Take 1 tablet by mouth daily Active apremilast 30 mg tablet Take by mouth Otezla 30 mg twice daily from Dr. Rea for psoriasis Active melatonin 5 mg tablet Take 1 tablet (5 mg total) by mouth nightly Active tiotropium-olod ateroL (Stiolto Respimat) 2.5-2.5 mcg/actuation inhalerIndicati ons:COPD with asthma (HCC) Inhale 1 puff daily 1 Inhaler 6 03/26/20 21 Active albuterol HFA (Ventolin HFA) 90 mcg/actuation inhalerIndicati ons:COPD with asthma (HCC) Inhale 2 puffs every 4 (four) hours as needed for wheezing or shortness of breath 8 g 5 03/26/20 21 Active diphenhydrAMINE -acetaminophen (TYLENOL PM) 25-500 mg tablet Take 2 tablets by mouth nightly Active benzonatate (TESSALON) 200 mg capsule TAKE 1 CAPSULE(200 MG) BY MOUTH THREE TIMES DAILY NEEDED FOR COUGH 60 capsule 10/07/20 21 Active Additional Information Patient not taking.Reported on 06/24/2022 fluticasone propionate (FLONASE) 50 mcg/actuation nasal sprayIndication s:Chronic rhinitis Administer 1 spray into each nostril 2 (two) times a day 16 g 5 10/13/20 21 Active finasteride (PROSCAR) 5 mg tabletIndicatio ns:BPH with urinary obstruction Take 1 tablet (5 mg total) by mouth daily 90 tablet 06/24/[address] (CYMBALTA) 30 mg capsuleIndicati ons:Mood disorder,Cervic al myelopathy (HCC),Chronic pain disorder Take 1 capsule (30 mg total) by mouth 2 (two) times a day 180 capsule 1 06/24/20 22 Active Additional Information Patient not taking.Reported on 10/19/2023 omeprazole (PriLOSEC) 20 mg capsuleIndicati ons:Esophageal stricture Take 1 capsule (20 mg total) by mouth daily 90 capsule 06/24/20 22 Active diclofenac sodium (VOLTAREN) 1 % gelIndications: Arthritis of knee Apply 2 g topically 3 (three) times a day 100 g 5 06/24/20 22 Active buPROPion XL (Wellbutrin XL) 150 mg 24 hr tabletIndicatio ns:Mood disorder Take 1 tablet (150 mg total) by mouth daily 90 tablet 1 06/24/20 22 Active Additional Information Patient not taking.Reported on 10/19/2023 montelukast (SINGULAIR) 10 mg tabletIndicatio ns:Chronic rhinitis Take 1 tablet (10 mg total) by mouth nightly 90 tablet 1 06/24/20 22 Active busPIRone (BUSPAR) 15 mg tabletIndicatio ns:Mood disorder Take 1 tablet (15 mg total) by mouth 2 (two) times a day 180 tablet 1 06/24/20 22 Active Additional Information Patient not taking.Reported on 10/19/2023 tamsulosin (FLOMAX) 0.4 mg extended release capsuleIndicati ons:BPH with urinary obstruction Take 2 capsules (0.8 mg total) by mouth nightly 180 capsule 06/24/20 22 Active amLODIPine (NORVASC) 5 mg tabletIndicatio ns:Benign hypertension Take 1 tablet (5 mg total) by mouth daily 90 tablet 1 06/24/20 22 Active traZODone (DESYREL) 50 mg tabletIndicatio ns:Insomnia, persistent Take 1 tablet (50 mg total) by mouth nightly as needed for sleep 90 tablet 08/10/20 22 Active amoxicillin 500 mg capsule 09/27/20 23 Active FLUoxetine (PROzac) 20 mg tablet 09/26/20 23 Active LORazepam (ATIVAN) 1 mg tablet Take 1 tablet (1 mg total) by mouth every 6 (six) hours as needed Active losartan (COZAAR) 25 mg tablet Take 1 tablet (25 mg total) by mouth daily 03/26/20 23 Active metoprolol tartrate (LOPRESSOR) 25 mg immediate release tablet Take 1 tablet (25 mg total) by mouth 2 (two) times a day 03/26/20 23 Active predniSONE (DELTASONE) 10 mg tablet 08/31/20 23 Active tiotropium bromide (SPIRIVA RESPIMAT) 2.5 mcg/actuation inhaler Inhale 2 puffs daily Active diclofenac DR (VOLTAREN) 75 mg EC tablet Take 1 tablet (75 mg total) by mouth 2 (two) times a day 30 tablet 1 01/11/20 24 Active TiZANidine (ZANAFLEX) 4 mg capsule TAKE 1 CAPSULE(4 MG) BY MOUTH THREE TIMES DAILY NEEDED FOR MUSCLE SPASMS 60 capsule 1 03/10/20 25 Active doxepin (SINEquan) 10 mg capsuleIndicati ons:Insomnia, persistent Take 1 capsule (10 mg total) by mouth nightly as needed for sleep 30 capsule 5 06/26/20 20 020 Discontinued TiZANidine (ZANAFLEX) 4 mg capsule TAKE 1 CAPSULE(4 MG) BY MOUTH THREE TIMES DAILY NEEDED FOR MUSCLE SPASMS 60 capsule 1 03/ 025 Discontinued Active Problems Problem Noted Date Diagnosed Date Olecranon bursitis of right elbow 06/24/2022 Cancer of kidney, right 06/29/2021 Overview (10/11/2021): 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 Alaniz 08/02/2021 Kidney, right, mass, robotic-assisted partial nephrectomy: - Renal cell carcinoma, clear cell type (see synopsis) - WHO/ISUP grade: 2 of 4 - Sarcomatoid features: Not identified - Rhabdoid features: Not identified - Tumor Location: Right, not further specified - Tumor focality: Unifocal - Tumor necrosis: Not identified - Tumor Size: 2.4 cm (greatest gross dimension) - Tumor Extent (macroscopic and microscopic): - Limited to kidney - Lymph-vascular invasion: Not identified - Surgical margins: Negative for malignancy Acute pain of left shoulder 03/17/2021 Assessment & Plan (03/17/2021 2:01 PM CDT): Patient is here for acute left shoulder pain that began after a fall 3 weeks ago. He is reporting mobility is increasing, but still have a significant amount of pain. On exam ROM normal, but there is pain with overhead raises and adduction. There is also some weakness with LUE. Given this will do xray to r/o acute fracture/dislocation post fall. He will continue at this time with tylenol, OTC lidocaine patches, ice and heat. If no acute fracture will begin physical therapy. He is to call if symptoms worsen or persist. Benign hypertension 09/18/2020 Mood disorder 09/18/2020 Nodule of right lung 04/20/2019 Overview (04/20/2019): Multiple pulmonary nodules detected on screening low-dose chest CT April 15, 2019 1 year follow-up advise Ascending aortic aneurysm 04/17/2019 Overview (04/17/2019): 4.2 CM ASCENDING AORTIC ANEURYSM DETECTED ON low-dose chest CT lung cancer screening April 2019 [facility], Recheck in 12 months Recurrent sinusitis 08/31/2018 Exudative age-related macula r degeneration of both eyes with active choroidal neovascularization 08/31/2018 Dental disease 08/31/2018 Overview (08/31/2018): 5 broken teeth 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 He states he was on prozac before and felt that it worked, better. Recommended the addition on counseling to help with anxiety, but patient declined. Will discuss medication regimen and changes with Dr. Palacios. Patient has upcoming visit next week with her. BPH with urinary obstruction 08/06/2017 Chronic GERD 08/06/2017 Cervical myelopathy 01/06/2017 Psoriasis 03/22/2014 Overview (02/08/2017): Psoriasis Insomnia, persistent 03/22/2014 Overview (02/08/2017): Insomnia, persistent Chronic rhinitis 03/22/2014 Overview (02/09/2017): Chronic allergic rhinitis Hx of adenomatous colonic polyps 01/27/2014 Overview (02/08/2017): Adenomatous colon polyp Osteoarthritis of knee 07/24/2013 Overview (02/09/2017): DJD (degenerative joint disease) of knee COPD with asthma 07/07/2013 Resolved Problems Problem Noted Date Diagnosed Date Resolved Date H/O adenomatous polyp of colon 08/11/2017 09/18/2020 Spondylolisthesis of lumbar region 07/31/2017 09/18/2020 Cervical disc disorder at C4 -C5 level with myelopathy 04/28/2017 09/18/2020 Overview (04/28/2017): C-spine surgery November 29, [address] Valle Neurogenic bladder disorder 04/28/2017 09/18/2020 Overview (04/28/2017): Condition developed after C-spine surgery requires urology follow-up and self catheterization starting November 2016 followed by Trigger finger, right ring finger 04/28/2017 09/18/2020 Cervical disc disorder with myelopathy 01/09/2017 09/18/2020 Skin tag 03/22/2014 04/28/2017 Overview (02/08/2017): Skin tag Vitamin D deficiency 03/22/2014 017 Overview (02/09/2017): Vitamin D deficiency History of arthrodesis 03/22/201404/28 Overview (02/09/2017): S/P cervical spinal fusion Lumbar disc disease 07/24/2013 09/18/20 20 Overview (04/28/2017): Low back pain: March 2017 MRIIMPRESSION: 1. Unchanged instrument posterior spinal fusion and posterior decompression from C3 through C6. 2. Moderate L4-L5 degenerative disc disease with grade 1 degenerative anterolisthesis of L4 on L5. Requested By: WAQAS VALLE M.D. Dictated By: JOHANNA JONES M.D. on Mar 20 2017 2:41P This document has been electronically signed by: JOHANNA JONES M.D. on Mar 20 2017 2:41P Immunizations Immunization Administration Dates Next Due Influenza, Quad, Adjuvantate d, Intramuscular 08/19/2021 Influenza, Quadrivalent, Shirley l Culture-based MDCK, Preservative Free, Antibiotic Free, Intramuscular 08/14/2020 Influenza, Quadrivalent, Rec ombinant, Egg Free, Preservative Free, Intramuscular 08/19/2021 Influenza, Quadrivalent, Spl it, Intramuscular 08/11/2017 Influenza, Trivalent, High D ose, Split, Preservative Free, Intramuscular 08/16/2019,08/16/2019,08/29/2018 Influenza, Trivalent, IM (MDV) 10/23/2015 Influenza, Trivalent, Preser vative Free, Intramuscular 11/22/2016 Influenza, Unspecified 08/14/2020,08/30/2018, Pfizer SARS-CoV-2 Monovalent Vaccination (12+ Yrs) PURPLE 08/19/2021 Pneumococcal Conjugate PCV 13 05/31/2016 Pneumococcal Polysaccharide PPV23 07/24/2013 Tdap 11/04/2011 ZOSTER Recombinant 10/18/2019,08/16/2019 Surgical History Surgery Date Site/Laterality Comments CERVICAL FUSION 11/06/1997 - 11/05/1998 SINUS SURGERY KNEE ARTHROSCOPY 11/06/2002 - 11/05/2003 Right KNEE ARTHROSCOPY CHOLECYSTECTOMY LUMBAR FUSION 09/13/2017 L4-[address] Leonard Alan TONSILLECTOMY 11/06/1969 - 11/05/1970 ESOPHAGOSCOPY / EGD 09/20/2019 (+) Dr. Lorenzana esophageal stricture dilated, biopsies pending APPENDECTOMY KIDNEY STONE SURGERY EYE SURGERY Bilateral cataract extraction PARTIAL NEPHRECTOMY 07/07/2021 - 08/05/[address] Chicas @ [facility], 2.4 cm tumor Medical History Medical History Date Comments Hx Other Medical Pre-diabetes; C omments: Yesica Palacios MD; Outcome: Resolved from Problem List Hypertension Chronic seasonal allergic rhinitis Colon polyp Rbbb 04/2003 Kidney stone COPD (chronic obstructive pu lmonary disease) (HCC) GERD (gastroesophageal reflux disease) BPH (benign prostatic hyperplasia) Osteoarthritis Renal mass Obesity BMI 31 Debility Anxiety Cancer (HCC) Cervical stenosis (uterine cervix) Gastric reflux Disc disorder of lumbar region Lumbar stenosis Family History Medical History Relation Name Comments Hypertension Father Prostate cancer Father Parkinsonism Maternal Grandfather Coronary artery disease Mother Heart failure Mother Lung cancer Mother Relation Name Status Comments Father Maternal Grandfather Mother Social History Tobacco Use Types Packs/Day Years Used Date Smoking Tobacco: Former Cigarettes 1 30 0 07/21/1986 - 07/21/2016 Smokeless Tobacco: Never Tobacco Cessation:Counseling Given: No Alcohol Use Standard Drinks/Week Comments Yes 0 (1 standard drink = 0.6 oz pur e alcohol) occassional AUDIT-C Answer Date Recorded Q1: How often do you have a drink containing alc ohol? Monthly or less 10/19/2023 Q2: How many drinks containi ng alcohol do you have on a typical day when you are drinking? 1 or 2 10/19/2023 Q3: How often do you have si x or more drinks on one occasion? 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 file Not on file Not on file Obstetrics History Last Filed Vital Signs Vital Sign Reading Time Taken Comments Blood Pressure 124/70 10/19/2023 9:37 AM [employer] Pulse 56 10/19/2023 9:37 AM [employer] Temperature 36.2 C (97.1 F) 06/24/2022 3:38 PM CDT Respiratory Rate 12 06/24/2022 3:38 PM CDT Oxygen Saturation 96% 06/24/2022 3:38 PM CDT Inhaled Oxygen Concentration - - Weight 89.2 kg (196 lb 9.6 oz) 10/19/2023 9:37 A M [employer] Height 167.6 cm (5' 6 ) 10/19/2023 9:37 AM [employer] Body Mass Index 31.73 10/19/2023 9:37 AM [employer] Plan of Treatment Health Maintenance Due Date Last Done Comments Hepatitis B Screening 1963 Lung Cancer Screening 04/12/2020 04/12/2019 DTaP/Tdap/Td Vaccine (2 - Td or Tdap) 11/04/2021 11/04/2011 Depression Screening 10/13/2022 10/13/2021, 09/18/2020, 08/31/2018 Fall Risk Assessment 10/13/2022 10/13/2021, 08/03/2021, 09/18/2020, Additional history exists Well Visit 65+ 10/13/2022 10/13/2021, 09/06, 08/31/2018 Covid-19 Vaccine (2023-2 5 season) 2024 08/19/2021, 01/24/2021, 01/01/2021 Influenza Vaccine (Season Ended) 2025 08/19/2021, 08/19/2021, 08/14/2020, Additional history exists Pneumococcal vaccine 65+ Completed 05/31/2016, 07/07 Hepatitis C Screening Completed 04/11/2017 Colon Cancer Screening-CT Colonography Discontinued 09/07/2017, 06/19/2015, 06/11/2015, Additional history exists Colon Cancer Screening-Colonoscopy Discontinued 09/07/2017, 06/19/2015, 06/11/2015, Additional history exists Colon Cancer Screening-DNA Stool Discontinued 09/07/2017, 06/19/2015, 06/11/2015, Additional history exists Colon Cancer Screening-FIT Discontinued 09/07, 06/19/2015, 06/11/2015, Additional history exists Colon Cancer Screening-FOBT Discontinued 12/2016, 06/19/2015, 06/11/2015, Additional history exists Colon Cancer Screening-Sigmoidoscopy Discontinued 09/07/2017, 06/19/2015, 06/11/2015, Additional history exists Colorectal Cancer Screening Discontinued Zoster Vaccine Completed 10/18/2019, 08/16/2019 Abdominal Aortic Aneurysm (A AA) Screen Completed 10/20/2021 Medical Devices Implanted Type Area Plug Shaper Hand Device Identifier Shelf Expiration Date Model / Serial / Lot Screw Screw N/A: Back Description:Rods and screws in neck and in lower back Procedures Procedure Name Priority Date/Time Associated Diagnosis Comments CT ABDOMEN W WO CONTRAST Schedule Routine, Read Routine (OP Routine) 10/20/2021 2:36 PM [employer] Malignant neoplasm of right kidney, except renal pelvis (HCC) COLONOSCOPY REPORT 09/07/2017 HEPATITIS C ANTIBODY Routine 04/11/2017 1:33 PM CDT from Last 3 Months or Most Recently Relevant to Health Maintenance Results * CT Abdomen W WO Contrast (10/20/2021 2:36 PM [employer]) Anatomical Region Laterality Modality Body N/A Computed Tomogra phy 10/21/2021 9:39 AM [employer] Narrative 10/21/2021 9:47 AM [employer] EXAM DESCRIPTION: CT ABDOMEN W WO CONTRAST REASON FOR STUDY: C64.1 1, Malignant neoplasm of right kidney, except renal pelvis removal of a stage 2 malignant tumor 08/02/2021 HTN no chemo or radiation TECHNIQUE: CT scan of the abdomen performed without and with intravenous and without oral contrast using helical scanning technique with dynamic intravenous contrast injection. Reconstructed coronal and sagittal MPR images reviewed. All images stored on PACS. Automated exposure control was used as a dose optimization technique for this examination. CONTRAST TYPE/DOSE: 100mL of IOVERSOL 320 MG IODINE/ML INTRAVENOUS SYRINGE injected via intravenous COMPARISON: Chest CT dated 02/13/2015. FINDINGS: LOWER CHEST: Clear lung bases. LIVER: Normal size. No identified cystic or solid masses. GALLBLADDER: Surgically absent. BILE DUCTS: No intrahepatic or extrahepatic ductal dilatation. SPLEEN: Normal size. No focal lesions. PANCREAS: No identified cystic or solid masses. No significant calcifications. No adjacent inflammation or peripancreatic fluid collections. Pancreatic duct not dilated. ADRENALS: There is a 13 mm right adrenal nodule which appears unchanged from prior. There is a 18 mm left adrenal nodule which is unchanged from prior. KIDNEYS/URINARY TRACT: There are changes from partial nephrectomy of the upper pole the right kidney. There is some postsurgical fluid in the area but no evidence of nodular enhancing recurrence. Small cysts are seen within both kidneys. GI: No dilated bowel loops. No obvious wall thickening. No significant diverticular disease. PERITONEUM: No ascites or free air. RETROPERITONEUM: No adenopathy. VASCULATURE: No abdominal aortic aneurysm. MUSCULOSKELETAL: There is fusion of the lower lumbar spine, involving L4-L5. Mild anterolisthesis of L4 on L5. OTHER: No other significant abnormality. IMPRESSION: 1. Changes from upper pole partial right nephrectomy without evidence of local or regional recurrence. 2. Small bilateral adrenal nodules, stable from 2015 consistent with benign adenomas. THIS IS AN ELECTRONICALLY VERIFIED FINAL REPORT 10/21/2021 9:47 AM - Electronically signed by Dylan Barnes M.D. KN: DELVIN Report ID: [id number] Reading Location: [id number] Procedure Note Dylan Barnes MD - 10/21/2021 EXAM DESCRIPTION: CT ABDOMEN W WO CONTRAST REASON FOR STUDY: C64.1 1, Malignant neoplasm of right kidney, except renal pelvis removal of astage 2 malignant tumor 08/02/2021 HTN no chemo or radiation TECHNIQUE: CT scan of the abdomen performed without and with intravenousand without oral contrast using helical scanning technique with dynamic intravenous contrast injection. Reconstructed coronal and sagittal MPRimages reviewed. All images stored on PACS. Automated exposure control was usedas a dose optimization technique for this examination. CONTRAST TYPE/DOSE: 100mL of IOVERSOL 320 MG IODINE/ML INTRAVENOUSSYRINGE injected via intravenous COMPARISON: Chest CT dated 02/13/2015. FINDINGS: LOWER CHEST: Clear lung bases. LIVER: Normal size. No identified cystic or solid masses. GALLBLADDER: Surgically absent. BILE DUCTS: No intrahepatic or extrahepatic ductal dilatation. SPLEEN: Normal size. No focal lesions. PANCREAS: No identified cystic or solid masses. No significant calcifications. No adjacent inflammation or peripancreatic fluidcollections. Pancreatic duct not dilated. ADRENALS: There is a 13 mm right adrenal nodule which appears unchangedfrom prior. There is a 18 mm left adrenal nodule which is unchanged fromprior. KIDNEYS/URINARY TRACT: There are changes from partial nephrectomy of the upper pole the right kidney. There is some postsurgical fluid in the areabut no evidence of nodular enhancing recurrence. Small cysts are seen withinboth kidneys. GI: No dilated bowel loops. No obvious wall thickening. No significant diverticular disease. PERITONEUM: No ascites or free air. RETROPERITONEUM: No adenopathy. VASCULATURE: No abdominal aortic aneurysm. MUSCULOSKELETAL: There is fusion of the lower lumbar spine, involvingL4-L5. Mild anterolisthesis of L4 on L5. OTHER: No other significant abnormality. IMPRESSION: 1. Changes from upper pole partial right nephrectomy without evidence of local or regional recurrence. 2. Small bilateral adrenal nodules, stable from 2015 consistent withbenign adenomas. THIS IS AN ELECTRONICALLY VERIFIED FINAL REPORT 10/21/2021 9:47 AM - Electronically signed by Dylan Barnes M.D. KN: DELVIN Report ID: [id number] Reading Location: [id number] Piotr Aalniz MD IM CT PROCEDURES Final Result * COLONOSCOPY REPORT (09/07/2017) Anatomical Region Laterality Modality Other Provider Scanning GI PROCEDURE ORDERABLES Final Result * Hepatitis C antibody (04/11/2017 1:33 PM CDT) Hep C Ab NON-REACTI VE NON-REACTI VE [facility] [place] SIGNAL TO CUT-OFF 0.07 <1.00 [facility] [place] 04/11/2017 1:33 PM CDT 04/11/2017 1:34 PM CDT Narrative [facility] - 04/12/2017 8:25 AM CDT FASTING:YES Resulting Agency Comment Performing Organization Information: Site ID: [id number] Name: [facility] Address: [facility] [place] [address] Director: Miguel Gordillo D.O., MPH Yesica Palacios MD LAB MICROBIOLOGY - GENERAL ORDERABLES Final Result [facility] [place] from Last 3 Months or Most Recently Relevant to Health Maintenance Insurance [facility] MEDICARE ADVANTAGE [facility] MEDICARE ADVANTAGE [facility] MEDIC[facility] Address: [facility] [id number] [place] [address] [facility] MEDICARE OF [facility] MEDICARE Address: [facility] [id number] [place] [phone] [facility] MEDICARE ADVANTAGE Advance Directives For more information, please contact: [phone] Documents on File Type Date Recorded Patient Harness 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 Expl anation ADVANCE DIRECTIVE 09/18/2020 DNR * Full Code (Latest Code Status on File) Date Activated Date Inactivated Comments 08/02/2021 9:31 PM 08/03/2021 10:19 PM * Full Code Date Activated Date Inactivated Comments 09/20/2019 9:06 AM 09/20/2019 3:33 PM * Full Code Date Activated Date Inactivated Comments 09/20/2019 9:05 AM 09/20/2019 9:06 AM Care Teams Hamper Maker Relationship Specialty Start Date End Date Bailey Campos PA [address] [place] [address] PCP - General Family Medicine 09/07/23 Waqas Valle MD Neurosurgery 04/28/17 Bart Perea MD [address] [place] [address] Urology 04/28/17 Riley Navarro MD [address] [place] [address] Dermatology 04/28/17 Kenji Escobar MD [address] [place] [address] Internal Medicine 04/28/17 Rian Hampton MD [address] [place] [address] Referring Physician Ophthalmology 08/31/18 [place] [id number] [place] [id number] Consulting Physician Urology 08/03/21
--- OUTSIDE RECORDS SUMMARY | 2025-03-27 13:29 | XMS_ITS | Referral Summary ---
Author Organization [facility] Address [address] [place] [address] Care Team Providers Care Economic Analyst Name Role Phone Waqas Valle MD Unavailable [phone] Bart Perea MD Unavailable [phone] Riley Navarro MD Unavailable [phone] Kenji Escobar MD Unavailable + Rian Hampton MD Unavailable [phone] Piotr Alaniz MD Unavailable [phone] Bailey Campos Primary Care Provider [phone] Allergies Active Allergy Reactions Criticality Noted Date [...] PPV23 07/24/2013 Tdap 11/04/2011 ZOSTER Recombinant 10/18/2019,08/16/2019 Social History Tobacco Use Types Packs/Day Years [...] on file 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 Gender Identity Not on file Sexual Orientation Not on file 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 on file Not on file Not on file Last Filed Vital Signs Vital Sign Reading Time Taken Comments Blood Pressure 124/70 10/19/2023 9:37 AM YARD LABORER Pulse 56 10/19/2023 9:37 AM YARD LABORER Temperature 36.2 C (97.1 F) 06/24/2022 3:38 PM CDT Respiratory Rate 12 06/24/2022 3:38 PM CDT Oxygen Saturation 96% 06/24/2022 3:38 PM CDT Inhaled Oxygen Concentration - - Weight 89.2 kg (196 lb 9.6 oz) 10/19/2023 9:37 A M YARD LABORER Height 167.6 cm (5' 6 ) 10/19/2023 9:37 AM YARD LABORER Body Mass Index 31.73 10/19/2023 9:37 AM YARD LABORER Plan of Treatment Not on file Medical Devices Implanted Type [employer] Teacher Device Identifier Shelf Expiration Date Model / Serial / Lot Screw Screw N/A: Back Description:Rods and screws in neck and in lower back Procedures Procedure Name Priority Date/Time Associated Diagnosis Comments CT ABDOMEN W WO CONTRAST Schedule Routine, Read Routine (OP Routine) 10/20/2021 2:36 PM YARD LABORER Malignant neoplasm of right kidney, except renal pelvis (HCC) COLONOSCOPY REPORT 09/07/2017 HEPATITIS C ANTIBODY Routine 04/11/2017 1:33 PM CDT from Last 3 Months or Most Recently Relevant to Health Maintenance Results * CT Abdomen W WO Contrast (10/20/2021 2:36 PM YARD LABORER) Anatomical Region Laterality Modality Body N/A Computed Tomogra phy 10/21/2021 9:39 AM YARD LABORER Narrative 10/21/2021 9:47 AM YARD LABORER EXAM DESCRIPTION: CT ABDOMEN W WO CONTRAST [...] 2. Small bilateral adrenal nodules, stable from 2014 consistent with benign adenomas. THIS IS AN ELECTRONICALLY VERIFIED FINAL REPORT 10/21/2021 9:47 AM - Electronically signed by Dylan Barnes M.D. KN: DELVIN Report ID: [id number] Reading Location: [id number] Procedure Note Dylan Barnes MD - 10/21/2021 [...] Dylan Barnes M.D. KN: DELVIN Report ID: [id number] Reading Location: [place] [address] Piotr Alaniz MD IMG CT PROCEDURES Final Result * COLONOSCOPY REPORT (09/07/2017) Anatomical Region Laterality Modality Other us Provider Scanning GI PROCEDURE ORDERABLES Final Result * Hepatitis C antibody (04/11/2017 1:33 PM CDT) Hep C Ab NON-REACTI VE NON-REACTI VE [facility] [place] SIGNAL TO CUT-OFF 0.07 <1.00 [facility] [place] 04/11/2017 1:33 PM CDT 04/11/2017 1:34 PM CDT Narrative [facility] - 04/12/2017 8:25 AM CDT FASTING:YES Resulting Agency Comment Performing Organization Information: Site ID: [place] Name: [facility] Address: [address] [place] [address] Director: Miguel Gordillo D.O., MPH us Yesica Palacios MD LAB MICROBIOLOGY - GENERAL ORDERABLES Final Result [facility] [place] from Last 3 Months or Most Recently Relevant to Health Maintenance Insurance UHC MEDICARE ADVANTAGE [facility] MEDIC[facility] Address: [address] [address] [place] [address] UHC MEDICARE ADVANTAGE [facility] MEDICARE Address: [address] [address] [place] [address] [facility] MEDICARE [facility] MEDICARE [facility] MEDICARE ADVANTAGE [facility] MEDIC[facility] Address: [address] [address] [place] [address] Advance Directives For more information, please contact: [phone] Documents on File Type Date Recorded 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 Expl 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 ADVANCE DIRECTIVE 09/18/2020 DNR * Full Code (Latest Code Status on File) Date Activated Date Inactivated Comments 08/02/2021 9:31 PM 08/03/2021 10:19 PM * Full Code Date Activated Date Inactivated Comments 09/20/2019 9:06 AM 09/20/2019 3:33 PM * Full Code Date Activated Date Inactivated Comments 09/20/2019 9:05 AM 09/20/2019 9:06 AM Care Teams Economic Analyst Relationship Specialty Start Date End Date Bailey Campos PA [address] [place] [address] PCP - General Family Medicine 09/07/23 Waqas Valle MD Neurosurgery 04/28/17 Bart Perea MD [address] [address] Urology 04/28/17 Riley Navarro [place] [address] Dermatology 04/28/17 Kenji Escobar MD [address] [place] [address] [address] [place] [address] Internal Medicine 04/28/17 Rian Hampton MD [address] [place] [address] [address] [place] [address] Referring Physician Ophthalmology 08/31/18 [place] [address] [place] [address] [place] [address] Consulting Physician Urology 08/03/21
--- OUTSIDE RECORDS SUMMARY | 2025-03-27 13:29 | XMS_ITS | Clinical Summary ---
Author Organization [facility] Address [address] [place] [address] Care Team Providers Care Client Services Coordinator Name Role Phone Unavailable Primary Care Provider Unavailabl e Source Comments [facility],non-owned Affiliates and Associated Physician Practices is amultiple site organization consisting of ambulatory clinics and hospital sitesin [place], [place], [place] and [place]. This disclosure is being madepursuant to the Care Everywhere program and may not contain all information available regarding this patient. 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 Gender Identity Not on file Sexual Orientation Not on file Plan of Treatment Health Maintenance Due Date Last Done Comments DTAP/TDAP/TD VACCINES (1 - Tdap) 1964 PNEUMOCOCCAL VACCINE 50+ (1 of 1 - PCV) 1995 ZOSTER VACCINE (1 of 2) 1995 Respiratory Syncytial Virus (RSV) Vaccine Pt: or over 60 yrs (1 - 1-dose 75+ series) 2020 COVID-19 VACCINE ( - 2023-2 5 season) 2024 DEPRESSION SCREENING 11/06/2024 MEDICARE AWV CALENDAR YEAR 2024 INFLUENZA VACCINE (Season Ended) 2025 HEPATITIS B VACCINE Aged Out No longe r eligible based on patient's age to complete this topic HIB VACCINE Aged Out No longer eligi ble based on patient's age to complete this topic HPV VACCINE Aged Out No longer eligi ble based on patient's age to complete this topic MENINGOCOCCAL (Group B) VACC INE SHARED DECISION-MAKING Aged Out No longer eligibl e based on patient's age to complete this topic MENINGOCOCCAL GROUPS A/C/Y/W VACCINE Aged Out No longer eligible b ased on patient's age to complete this topic Insurance UHC MANAGED MEDICARE ADV AETNA MEDICARE ADV
--- OUTSIDE RECORDS SUMMARY | 2025-03-27 13:30 | XMS_ITS | Patient Health Record ---
Author Organization [facility] Address [address] [place] [address] Care Team Providers Care Mid Level Provider Name Role Phone Anna James Unavailable [phone] Devin Haywood Unavailable [phone] Allergies No Known Allergies Reason For Referral No Information Medications Medication SIG (Take, Route, Frequency, Duration) Notes Start Date End Date Status TIOTROPIUM 2.5 MCG-OLODATEROL 2.5 MCG/ACTUATION MIST FOR INHALATION *Reorder from dotHIV for eRx and Interaction Alerts* 02/21/2024 Active Montelukast Sodium 10 MG Oral 02/21/2024 Active Triamcinolone Acetonide 0.1% External 02/21/2024 Active Diclofenac Sodium 75 MG Oral 02/21/2024 Active DULoxetine HCl 60 MG 1 capsule Oral Once a day for 90 days Active tiZANidine HCl 4 MG Oral 02/21/2024 Active ProAir HFA 108 (90 Base) MCG/ACT Inhalation 02/21/2024 Active traZODone HCl 100 MG 1 tablet at bedtime Oral Once a day for 90 days As needed Active Finasteride 5 MG Oral 02/21/2024 Ac tive Tamsulosin HCl 0.4 MG Oral 02/21/2024 Active DULoxetine HCl 30 MG 1 capsule Oral Once a day for 90 days Active Omeprazole 20 MG Oral 02/21/2024 Ac tive Otezla 30 MG Oral 02/21/2024 Active PreserVision AREDS *Pick strengt h-form from dotHIV for eRX* 02/21/2024 Active Metoprolol Tartrate 25 MG Oral 02/21/2024 Active amLODIPine Besylate 10 MG Oral 02/21/2024 Active FLUoxetine HCl 20 MG 2 tablest Oral Once a day for 90 days Active Losartan Potassium 25 MG Oral 02/21/2024 Active Social History Sex Assigned At : Social History Observation Description Sex Assigned At Male Problems Problem Type SNOMED Code ICD Code Onset Dates Problem Status W/U Status Risk Notes Problem Moderate recurrent major depression (88024491) Major depressive disorder, recurrent, moderate (F33.1) Active confirmed Problem Generalized anxiety disorder (23554836) Generalized anxiety disorder (F41.1) Active confirmed Problem Primary insomnia (6811554) Primary insomnia (F51.01) Active confirmed Problem 14199311 Recurrent major depressive disorder, in remission (F33.40) Active confirmed Problem Benign essential HTN (I10) Active confirmed Vital Signs Heart Rate 87 /min 11/22/2024 Height-cm 170.18 cm 02/20/2025 Blood pressure diastolic 82 mm Hg 11/22/2024 Weight-kg 80.74 kg 11/22/2024 Height 67.00 in 02/20/2025 Blood pressure systolic 140 mm Hg 11/22/2024 Weight 178 lbs 11/22/2024 BMI 27.88 kg/m2 11/22/2024 Encounters Encounter Location Date Provider Diagnosis [facility] [place] [facility] [address] [place] [address] 05/22/2024 Thena Yobany Major depressive disorder, recurrent, moderate F33.1 ; Generalized anxiety disorder F41.1 and Primary insomnia F51.01 [facility] [place] [facility] [address] [place] [address] 08/22/2024 Thena Yobany Major depressive disorder, recurrent, moderate F33.1 ; Generalized anxiety disorder F41.1 and Primary insomnia F51.01 [facility] [place] [facility] [address] [place] [address] 11/22/2024 Thena Yobany Recurrent major depressive disorder, in remission F33.40 ; Generalized anxiety disorder F41.1 and Benign essential HTN I10 [facility] [place] [address] [place] [address] 02/20/2025 Anna James Major depressive disorder, recurrent, moderate F33.1 ; Generalized anxiety disorder F41.1 ; Primary insomnia F51.01 ; Encounter for screening for cardiovascular disorders Z13.6 and Encounter for screening for depression Z13.31 [place] [address] [facility] [address] [facility] [address] [place] [address] 02/20/2025 Anna James Recurrent major depressive disorder, in remission F33.40 [place] [address] [facility] [address] [place] [address] 02/26/2025 Anna James [place] [address] [facility] [address] [place] [address] 02/26/2025 Anna James Assessments Encounter Date Diagnosis (ICD Code) Assessment Notes Treatment Notes Treatment Clinical Notes Section Notes 05/22/2024 Major depressive disorder, recurrent, moderate (ICD-10 - F33.1) 05/22/2024 Generalized anxiety disorder (ICD-10 - F41.1) 08/22/2024 Major depressive disorder, recurrent, moderate (ICD-10 - F33.1) 08/22/2024 Generalized anxiety disorder (ICD-10 - F41.1) 11/22/2024 Generalized anxiety disorder (ICD-10 - F41.1) 11/22/2024 Recurrent major depressive disorder, in remission (ICD-10 - F33.40) 02/20/2025 Recurrent major depressive disorder, in remission (ICD-10 - F33.40) 02/20/2025 Major depressive disorder, recurrent, moderate (ICD-10 - F33.1) SSRI/SNRI side effects discussed including but not limited to, gastric upset, nausea, vomiting, diarrhea and/or constipation, weight changes, sexual side effects including loss of libido, increased suicidal thoughts/behavio rs in children and young adults, and serotonin syndrome. 02/20/2025 Generalized anxiety disorder (ICD-10 - F41.1) 02/20/2025 Primary insomnia (ICD-10 - F51.01) 11/22/2024 Benign essential HTN (ICD-10 - I10) 08/22/2024 Primary insomnia (ICD-10 - F51.01) dose increased to 100 mg qhs 05/22/2024 Primary insomnia (ICD-10 - F51.01) 02/20/2025 Encounter for screening for cardiovascular disorders (ICD-10 - Z13.6) 02/20/2025 Encounter for screening for depression (ICD-10 - Z13.31) 02/20/2025 Other Stable, continue current medications. -refills sent in today -No concerns today Patient educated on all medications including potential benefits, side effects, risks. Educated on proper dosing schedule and importance of compliance. Previous records reviewed for continuity of care. -Assessment and treatment plan reviewed with patient. -Compliance with treatment plan importance discussed. -Discussed the risks/benefits of this medication -Discussed medication side effects. -Contact office if symptoms worsen. -Discussed that it can take up to 6-8 weeks to see full therapeutic effects of psychotropic medications. -Crisis prevention hotline 988. 02/26/2025 Other Electronic Prio r Authorization was requested for FLUoxetine HCl 20 MG Capsule. Provider can order medication once approval received. Plan Of Treatment Next Appt Details Provider Name:Anna ross, 06/18/2025 02:45:00 PM, [address], [address], [place], [address], Insurance Providers Payer Name Payer Address Payer Phone Subscriber Number Group Number Insured Name Patient Relationship to Insured Coverage Start Date Coverage End Date [employer] Medicare Replacemen t/Advantag e - Ppo [address] [place] [address] [id number] MARIANA CHAVARRIA Self - patient is the insured Medical (General) History Medical History History ICD Code Problems: Generalized anxiety disorder Moderate recurrent major depression , Surgical History Surgery Date(Month/Year) Spinal cord excision (653153257) Cancer stage docd metast (3301F) Extraction of cataract (16264817) Procedure on back ([id number])
[2025-03-27 13:39] VITALS: BP 128/71; PULSE 73; RESP 16; TEMP 36.4; O2SAT 100
--- NOTE | 2025-03-27 14:55 | ED.GENADULT ---
HPI - General Adult General Chief complaint: Unspecified <ONEYDA Whelan Last Filed: 03/27/25 15:05> Stated complaint: Unable to walk today-sent by PMD <ONEYDA Whelan Last Filed: 03/27/25 15:05> Time Seen by Provider: 03/27/25 14:55 <ONEYDA Whelan Last Filed: 03/27/25 15:05> Focused HPI: Patient is a 79-year-old male who presents the ED with report of difficulty ambulating. Patient reports having pain throughout his lower back for the past 1 week. Pain radiates into his BLE (posteriorly into his calves and hamstrings), worse in the RLE. States over the past week, his legs have become very weak. Saw his PCP and was rx'd norco, gabapentin, prednisone. Has been taking these w/o improvement. States this morning, he could not even ambulate with his walker w/o falling. States he fell 3 times this morning and had to crawl. Is unable to ambulate. Is scheduled to undergo MRI of lumbar region on 04/17, but could not take the pain. Reports tingling in his legs, denies numbness. Denies bowel or bladder incontinence, saddle anesthesia. GENERAL: Elderly, mildly uncomfortable-appearing, well-nourished, and in no acute distress. HEAD: Normocephalic, atraumatic. CHEST: Clear to auscultation. ?No respiratory distress. HEART: Regular rate and rhythm.? MSK: Diffuse tenderness throughout lumbar midline spine and paraspinal musculature, positive SLR lorena, worse in RLE. Sensation intact throughout BLE. NEURO: ?Alert and oriented x3. No appreciable focal deficits. Patient screened in triage and initial orders placed.? ?Additional care and disposition to be based upon?diagnostic testing and treatment. <ONEYDA Whelan Last Filed: 03/27/25 15:05> Source: patient <ONEYDA Whelan Last Filed: 03/27/25 15:05> Mode of arrival: wheelchair <ONEYDA Whelan Last Filed: 03/27/25 15:05> Limitations: no limitations <Bibi Yanes PA-C - Last Filed: 03/27/25 15:05> History of Present Illness HPI narrative: Agree with HPI <Paul Jackson MD - Last Filed: 03/27/25 18:41> Related Data Home medications: Home Medications ?Medication ?Instructions ?Recorded ?Confirmed ?Last Taken ?Type apremilast 30 mg tablet 30 mg PO BID 08/16/22 03/25/25 Unknown History bupropion HCl 150 mg 24 hr tablet, 150 mg PO QAM 08/16/22 03/25/25 Unknown History extended release buspirone 15 mg tablet 15 mg PO BID 08/16/22 03/25/25 Unknown History diphenhydramine 25 2 tablet PO QHS PRN 08/16/22 03/25/25 Unknown History mg-acetaminophen 500 mg tablet fluticasone propionate 50 2 spray intranasal BID 08/16/22 03/25/25 Unknown History mcg/actuation nasal spray,suspension melatonin 5 mg tablet 5 mg PO QHS 08/16/22 03/25/25 Unknown History multivitamin 1 tablet PO DAILY 08/16/22 03/25/25 Unknown History tiotropium 2.5 mcg-olodaterol 2.5 1 puff inhalation DAILY 08/16/22 03/25/25 Unknown History mcg/actuation mist for inhalation trazodone 50 mg tablet 50 mg PO QHS PRN 08/16/22 03/25/25 Unknown History <Bibi Yanes PA-C - Last Filed: 03/27/25 15:05> Allergies/adverse reactions: Allergies Allergy/AdvReac Type Severity Reaction Status Date / Time No Known Allergies Allergy Verified 03/25/25 14:09 <Bibi Yanes PA-C - Last Filed: 03/27/25 15:05> Review of Systems Constitutional: Constitutional: Reports no additional constitutional complaints <Paul Jackson MD - Last Filed: 03/27/25 18:41> Musculoskeletal: Musculoskeletal: Reports no additional musculoskeletal complaints <Paul Jackson MD - Last Filed: 03/27/25 18:41> Integumentary/Breasts: Skin/Breast: Reports system reviewed and no additional complaints, except as docu <Paul Jackson MD - Last Filed: 03/27/25 18:41> FOR[facility]LY [facility] Past Medical History Medical History: Medical History Septic olecranon bursitis of right elbow Right elbow pain Tomas's palsy Psoriasis Hearing loss Blindness Claustrophobia Degenerative joint disease of right knee Thoracic aortic aneurysm Neck pain with history of cervical spinal surgery HTN (hypertension) GERD (gastroesophageal reflux disease) Cancer of kidney Anxiety <Bibi aYnes PA-C - Last Filed: 03/27/25 15:05> Surgical History Surgical History: Surgical History History of kidney surgery for cancer H/O neck surgery 11/[address] Valle Previous back surgery History of cholecystectomy <Bibi Yanes PA-C - Last Filed: 03/27/25 15:05> Family History Family History: Family History Other Alcoholism Anxiety Colon cancer Depression Heart disease Hypertension Lung cancer <Bibi Yanes PA-C - Last Filed: 03/27/25 15:05> Social History Social History: Social History Smoking status: Former smoker Tobacco type: cigarettes Second hand tobacco smoke exposure: No Smoking end date: 11/06/16 Alcohol intake: current Substance use: never Substance use type: does not use Lack of Transportation: No Lack of Food: Never True Current Housing: I Have Housing Concerned About Future Housing: No Difficulty Paying Gas/Electric Bills: No Difficulty Paying for Meds: No Currently Unemployed: No Education: Master's Degree or Higher Difficulty w/ Childcare or Family Care: No Living arrangements: with family Occupation/Education: retired 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 HEAD: Normocephalic, atraumatic. ENT: Mucous membranes moist. CHEST: Clear to auscultation. No respiratory distress. HEART: Regular rate and rhythm. No murmur heard. Normal peripheral pulses. EXTREMITIES: Normal range of motion. No edema. Back: No reproducible midline tenderness. There is left paraspinal muscle tenderness L3-L4 in an SI region reproducing pain. Mild discomfort on the right. NEURO: No focal deficits. Alert and oriented x3. PSYCH: Normal mood and affect. <Paul Jackson MD - Last Filed: 03/27/25 18:41> Course Course Emergency Course: No saddle anesthesia. Up and ambulatory with walker. Pain improved with [place]. Discharge with similar medication. Discussed with nurse surgery and they will for follow-up in clinic. <Paul Jackson MD - Last Filed: 03/27/25 18:41> Vital Signs Vital signs: Vital Signs Temperature 97.6 F 03/27/25 13:39 Pulse Rate 73 03/27/25 13:39 Respiratory Rate 16 03/27/25 13:39 Blood Pressure 128/71 03/27/25 13:39 Pulse Oximetry 100 03/27/25 13:39 Temperature 97.6 F 03/27/25 13:39 Pulse Rate 77 03/27/25 17:12 Respiratory Rate 18 03/27/25 17:12 Blood Pressure 155/72 H 03/27/25 17:12 Pulse Oximetry 100 03/27/25 17:12 <Bibi Yanes PA-C - Last Filed: 03/27/25 15:05> Vital Signs Temperature 97.6 F 03/27/25 13:39 Pulse Rate 73 03/27/25 13:39 Respiratory Rate 16 03/27/25 13:39 Blood Pressure 128/71 03/27/25 13:39 Pulse Oximetry 100 03/27/25 13:39 Temperature 97.6 F 03/27/25 13:39 Pulse Rate 77 03/27/25 17:12 Respiratory Rate 18 03/27/25 17:12 Blood Pressure 155/72 H 03/27/25 17:12 Pulse Oximetry 100 03/27/25 17:12 <Paul Jackson MD - Last Filed: 03/27/25 18:41> Medical Decision Making MDM Narrative Medical decision making narrative: MSE by MICHELE in triage. <Bibi Yanes PA-C - Last Filed: 03/27/25 15:05> Vital Signs Vital Signs: Vital Signs Temperature 97.6 F 03/27/25 13:39 Pulse Rate 73 03/27/25 13:39 Respiratory Rate 16 03/27/25 13:39 Blood Pressure 128/71 03/27/25 13:39 Pulse Oximetry 100 03/27/25 13:39 Temperature 97.6 F 03/27/25 13:39 Pulse Rate 77 03/27/25 17:12 Respiratory Rate 18 03/27/25 17:12 Blood Pressure 155/72 H 03/27/25 17:12 Pulse Oximetry 100 03/27/25 17:12 <Bibi Yanes PA-C - Last Filed: 03/27/25 15:05> Vital Signs Temperature 97.6 F 03/27/25 13:39 Pulse Rate 73 03/27/25 13:39 Respiratory Rate 16 03/27/25 13:39 Blood Pressure 128/71 03/27/25 13:39 Pulse Oximetry 100 03/27/25 13:39 Temperature 97.6 F 03/27/25 13:39 Pulse Rate 77 03/27/25 17:12 Respiratory Rate 18 03/27/25 17:12 Blood Pressure 155/72 H 03/27/25 17:12 Pulse Oximetry 100 03/27/25 17:12 <Paul Jackson MD - Last Filed: 03/27/25 18:41> Lab Data Result diagrams: 03/27/25 15:06 03/27/25 15:06 <ONEYDA Whelan Last Filed: 03/27/25 15:05> Labs: Lab Results 03/27/25 Range/Units 15:06 WBC 13.7 H (4.5-10.0) K/mm3 RBC 4.49 L (4.6-6.20) M/mm3 Hgb 14.0 (14.0-18.0) g/dL Hct 41.9 L (42.0-52.0) % MCV 93.3 (80-100) fl MCH 31.2 (26-34) pg MCHC 33.4 (32-36) g/dl RDW 13.0 (11.5-14.5) % Plt Count 383 H (150-375) k/mm3 MPV 9.7 (7.4-10.4) fl Immature Gran % (Auto) 0.5 (0-0.5) % Neut % (Auto) 89.8 H (45.5-73.1) % Lymph % (Auto) 7.9 L (18.3-44.2) % Crosby % (Auto) 1.2 L (2.6-8.5) % Eos % (Auto) 0.2 (0-4.4) % Baso % (Auto) 0.4 (0.2-1.2) % Lymph # (Auto) 1.09 (0.9-3.2) K/mm3 Crosby # (Auto) 0.2 (0.1-0.6) K/mm3 Eos # (Auto) 0.0 (0-0.3) K/mm3 Baso # (Auto) 0.1 (0.0-0.1) K/mm3 Abs Immat Gran (auto) 0.07 H (0.00-0.031) K/mm3 Absolute Neuts (auto) 12.3 H (1.3-6.7) K/mm3 Absolute Nucleated RBC 0.000 (0.0-0.012) K/mm3 Nucleated RBC % 0.0 (0.0-0.2) % PT 14.0 (11.1-14.7) Seconds INR 1.0 APTT 31.7 (22.3-36.8) Seconds Sodium 140 (137-145) mmol/L Potassium 3.9 (3.4-5.0) mmol/L Chloride 102 (98-107) mmol/L Carbon Dioxide 30 (22-30) mmol/L Anion Gap 8 (4-12) mmol/L BUN 18 (9-20) mg/dL Creatinine 1.11 (0.7-1.3) mg/dL Estim Creat Clear Calc 45 ml/min Estimated GFR > 60 (59 - ) Glucose 147 H (65-110) mg/dL Calcium 9.0 (8.4-10.2) mg/dL Total Bilirubin 0.6 (0.2-1.3) mg/dL AST 35 (17-59) U/L ALT 26 (6-50) U/L Alkaline Phosphatase 78 (38-126) U/L Total Protein 8.0 (6.3-8.2) g/dL Albumin 4.5 (3.5-5.1) g/dL <Bibi Yanes PA-C - Last Filed: 03/27/25 15:05> Lab Results 03/27/25 Range/Units 15:06 WBC 13.7 H (4.5-10.0) K/mm3 RBC 4.49 L (4.6-6.20) M/mm3 Hgb 14.0 (14.0-18.0) g/dL Hct 41.9 L (42.0-52.0) % MCV 93.3 (80-100) fl MCH 31.2 (26-34) pg MCHC 33.4 (32-36) g/dl RDW 13.0 (11.5-14.5) % Plt Count 383 H (150-375) k/mm3 MPV 9.7 (7.4-10.4) fl Immature Gran % (Auto) 0.5 (0-0.5) % Neut % (Auto) 89.8 H (45.5-73.1) % Lymph % (Auto) 7.9 L (18.3-44.2) % Crosby % (Auto) 1.2 L (2.6-8.5) % Eos % (Auto) 0.2 (0-4.4) % Baso % (Auto) 0.4 (0.2-1.2) % Lymph # (Auto) 1.09 (0.9-3.2) K/mm3 Crosby # (Auto) 0.2 (0.1-0.6) K/mm3 Eos # (Auto) 0.0 (0-0.3) K/mm3 Baso # (Auto) 0.1 (0.0-0.1) K/mm3 Abs Immat Gran (auto) 0.07 H (0.00-0.031) K/mm3 Absolute Neuts (auto) 12.3 H (1.3-6.7) K/mm3 Absolute Nucleated RBC 0.000 (0.0-0.012) K/mm3 Nucleated RBC % 0.0 (0.0-0.2) % PT 14.0 (11.1-14.7) Seconds INR 1.0 APTT 31.7 (22.3-36.8) Seconds Sodium 140 (137-145) mmol/L Potassium 3.9 (3.4-5.0) mmol/L Chloride 102 (98-107) mmol/L Carbon Dioxide 30 (22-30) mmol/L Anion Gap 8 (4-12) mmol/L BUN 18 (9-20) mg/dL Creatinine 1.11 (0.7-1.3) mg/dL Estim Creat Clear Calc 45 ml/min Estimated GFR > 60 (59 - ) Glucose 147 H (65-110) mg/dL Calcium 9.0 (8.4-10.2) mg/dL Total Bilirubin 0.6 (0.2-1.3) mg/dL AST 35 (17-59) U/L ALT 26 (6-50) U/L Alkaline Phosphatase 78 (38-126) U/L Total Protein 8.0 (6.3-8.2) g/dL Albumin 4.5 (3.5-5.1) g/dL <Paul Jackson MD - Last Filed: 03/27/25 18:41> Imaging Data Radiologist's impression: ITS Impressions Lumbar Spine CT 03/27/25 15:56 IMPRESSION: No acute osseous abnormality. Multilevel degenerative disc disease. Multilevel intervertebral foraminal narrowing with root compression. MRI is better for evaluation. Right adrenal adenoma. No follow-up advised unless clinically warranted. <Paul Jackson MD - Last Filed: 03/27/25 18:41> Discharge Plan Discharge Clinical Impression: Sciatica <Bibi Yanes PA-C - Last Filed: 03/27/25 15:05> Patient Disposition: Home <Bibi Yanes PA-C - Last Filed: 03/27/25 15:05> Condition: Stable <Bibi Yanes PA-C - Last Filed: 03/27/25 15:05> Instructions: Sciatica (ED), Degenerative Disc Disease (ED) <ONEYDA Whelan Last Filed: 03/27/25 15:05> Additional Instructions: Please return to the emergency department if you develop severe pain that is not controlled by pain medications or if you are unable to walk because of pain or weakness. Return to the emergency department immediately if you develop fevers, loss of bowel or bladder control (dribbling of urine or having accidents you wouldn't normally have), inability to urinate, numbness of your genital or anal area, or weakness/numbness of your legs or arms as these could all be signs of a serious medical emergency. <Bibi Yanes PA-C - Last Filed: 03/27/25 15:05> Patient Language: Bulgarian <ONEYDA Whelan Last Filed: 03/27/25 15:05> Prescriptions: New hydrocodone-acetaminophen 5-325 mg tablet 1 tablet PO Q6H PRN (Reason: pain) Qty: 14 0RF No Action montelukast 10 mg tablet 10 mg PO QHS Qty: 90 1RF fluoxetine 40 mg capsule 40 mg PO DAILY Qty: 1 0RF diclofenac sodium 75 mg tablet,delayed release (DR/EC) 75 mg PO BID Qty: 1 0RF lidocaine 5 % adhesive patch,medicated 2 patch topical DAILY Qty: 30 0RF Rx Instructions: leave on most painful area for up to 12 hrs diclofenac sodium [Arthritis Pain (diclofenac)] 1 % gel 2 g topical TID Qty: 100 0RF Rx Instructions: apply to single elbow, wrist or hand; for hand includes palm/fingers/back of hand prednisone 10 mg tablet See Rx Instructions .Route .COMPLEX 10 Days Qty: 30 0RF Rx Instructions: 5 tab daily for 2 day 4 tab daily for 2 day 3 tab daily for 2 day 2 tab daily for 2 day 1 tab daily for 2 day then dc ; gabapentin 300 mg capsule 300 mg PO QHS Qty: 30 1RF hydrocodone-acetaminophen 5-325 mg tablet 1 tablet PO Q6H PRN (Reason: pain) Qty: 40 0RF apremilast 30 mg tablet 30 mg PO BID bupropion HCl 150 mg tablet extended release 24 hr 150 mg PO QAM buspirone 15 mg tablet 15 mg PO BID diphenhydramine-acetaminophen 25-500 mg tablet 2 tablet PO QHS PRN fluticasone propionate 50 mcg/actuation spray,suspension 2 spray intranasal BID Rx Instructions: administer into each nostril melatonin 5 mg tablet 5 mg PO QHS multivitamin Tablet 1 tablet PO DAILY tiotropium-olodaterol 2.5-2.5 mcg/actuation mist 1 puff inhalation DAILY trazodone 50 mg tablet 50 mg PO QHS PRN lorazepam [Ativan] 1 mg tablet 1 mg PO BID PRN (Reason: anxiety) Qty: 14 0RF albuterol sulfate 90 mcg/actuation HFA aerosol inhaler 2 inh inhalation Q4H Qty: 8.5 0RF duloxetine 30 mg capsule,delayed release(DR/EC) 30 mg PO BID Qty: 180 1RF finasteride 5 mg tablet 5 mg PO DAILY Qty: 90 1RF tizanidine 4 mg capsule 4 mg PO QHS PRN (Reason: muscle spasticity) Qty: 20 0RF omeprazole 20 mg capsule,delayed release(DR/EC) 20 mg PO DAILY Qty: 180 1RF tamsulosin 0.4 mg capsule See Rx Instructions .ROUTE .COMPLEX Qty: 180 0RF Dose Instruction: TAKE 2 CAPSULES BY MOUTH EVERY DAY AT BEDTIME Rx Instructions: TAKE 2 CAPSULES BY MOUTH EVERY DAY AT BEDTIME losartan 25 mg tablet See Rx Instructions .ROUTE .COMPLEX Qty: 90 2RF Dose Instruction: TAKE 1 TABLET BY MOUTH DAILY Rx Instructions: TAKE 1 TABLET BY MOUTH DAILY metoprolol tartrate 25 mg tablet 12.5 mg PO BID Qty: 90 1RF amlodipine 10 mg tablet 10 mg PO DAILY Qty: 90 1RF <Bibi Yanes PA-C - Last Filed: 03/27/25 15:05> Follow-up/Referrals: Ani Das MD [Primary Care Provider] - Brenda Salgado MD [Physician] - 1 Week <Bibi Yanes PA-C - Last Filed: 03/27/25 15:05>
[2025-03-27] MEDS: CYCLOBENZAPRINE HCL 5 MG TABLET PO (15:09)
[2025-03-27] MEDS: HYDROcodone/acetaminophen (*CRX) 5-325 MG TABLET 1 TAB PO (15:10)
[2025-03-27 15:16] LABS: Basophils Absolute Auto 0.1 K/mm3 (0.0-0.1); Basophils Percent Auto 0.4 % (0.2-1.2); Eosinophils Percent Auto 0.2 % (0-4.4); Hematocrit 41.9 % (42.0-52.0); Immature Granulocyte Absolute 0.07 K/mm3 (0.00-0.031); Immature Granulocyte Percent A 0.5 % (0-0.5); Lymphocytes Absolute Auto 1.09 K/mm3 (0.9-3.2); Lymphocytes Percent Auto 7.9 % (18.3-44.2); Mean Corpuscular HGB Conc 33.4 g/dl (32-36); Mean Corpuscular Hemoglobin 31.2 pg (26-34); Mean Corpuscular Volume 93.3 fl (80-100); Mean Platelet Volume 9.7 fl (7.4-10.4); Monocytes Absolute Auto 0.2 K/mm3 (0.1-0.6); Monocytes Percent Auto 1.2 % (2.6-8.5); Neutrophils Absolute Auto 12.3 K/mm3 (1.3-6.7); Neutrophils Percent Auto 89.8 % (45.5-73.1); Platelet Count Result 383 k/mm3 (150-375); Red Blood Count 4.49 M/mm3 (4.6-6.20); White Blood Count 13.7 K/mm3 (4.5-10.0)
[2025-03-27 15:23] LABS: Alanine Aminotransferase 26 U/L (6-50); Albumin Level 4.5 g/dL (3.5-5.1); Alkaline Phosphatase 78 U/L (38-126); Anion Gap 8 mmol/L (4-12); Aspartate Amino Transferase 35 U/L (17-59); Bilirubin,Total 0.6 mg/dL (0.2-1.3); Blood Urea Nitrogen 18 mg/dL (9-20); Carbon Dioxide 30 mmol/L (22-30); Chloride 102 mmol/L (98-107); Estimated CRCL calculation 45 ml/min; Estimated Glomerular Filt Rate > 60; Glucose 147 mg/dL (65-110); Potassium 3.9 mmol/L (3.4-5.0); Sodium 140 mmol/L (137-145)
[2025-03-27 15:28] LABS: Partial Thromboplastin Time 31.7 Seconds (22.3-36.8)
--- OUTSIDE RECORDS SUMMARY | 2025-03-27 16:28 | XMS_ITS | Referral Summary ---
Author Organization [facility] Address [address] [place] [address] Care Team Providers Care Cork Insulator Name Role Phone Waqas Valle MD Unavailable [phone] Bart Perea MD Unavailable [phone] Riley Navarro MD Unavailable [phone] Kenji Escobar MD Unavailable + Rian Hampton MD Unavailable [phone] Piotr Alaniz MD Unavailable [phone] Bailey Campos Primary Care Provider [phone] Allergies Active Allergy Reactions Criticality Noted Date [...] on file Legal Sex Male 1:22 AM BUSINESS ADMINISTRATOR Gender Identity Not on file Sexual Orientation Not on file 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 on file Not on file Not on file Last Filed Vital Signs Vital Sign Reading Time Taken Comments Blood Pressure 124/70 10/19/2023 9:37 AM BUSINESS ADMINISTRATOR Pulse 56 10/19/2023 9:37 AM BUSINESS ADMINISTRATOR Temperature 36.2 C (97.1 F) 06/24/2022 3:38 PM CDT Respiratory Rate 12 06/24/2022 3:38 PM CDT Oxygen Saturation 96% 06/24/2022 3:38 PM CDT Inhaled Oxygen Concentration - - Weight 89.2 kg (196 lb 9.6 oz) 10/19/2023 9:37 A M BUSINESS ADMINISTRATOR Height 167.6 cm (5' 6 ) 10/19/2023 9:37 AM BUSINESS ADMINISTRATOR Body Mass Index 31.73 10/19/2023 9:37 AM BUSINESS ADMINISTRATOR Plan of Treatment Not on file Medical Devices Implanted Type Area Shank Scourer Device Identifier Shelf Expiration Date Model / Serial / Lot Screw Screw N/A: Back Description:Rods and screws in neck and in lower back Procedures Procedure Name Priority Date/Time Associated Diagnosis Comments CT ABDOMEN W WO CONTRAST Schedule Routine, Read Routine (OP Routine) 10/20/2021 2:36 PM BUSINESS ADMINISTRATOR Malignant neoplasm of right kidney, except renal pelvis (HCC) COLONOSCOPY REPORT 09/07/2017 HEPATITIS C ANTIBODY Routine 04/11/2017 1:33 PM CDT from Last 3 Months or Most Recently Relevant to Health Maintenance Results * CT Abdomen W WO Contrast (10/20/2021 2:36 PM BUSINESS ADMINISTRATOR) Anatomical Region Laterality Modality Body N/A Computed Tomogra phy 10/21/2021 9:39 AM BUSINESS ADMINISTRATOR Narrative 10/21/2021 9:47 AM BUSINESS ADMINISTRATOR EXAM DESCRIPTION: CT ABDOMEN W WO CONTRAST [...] Dylan Barnes M.D. KN: DELVIN Report ID: [id number] Reading Location: [id number] Procedure Note Dylan Barnes MD - 10/21/2021 [...] Dylan Barnes M.D. KN: DELVIN Report ID: [id number] Reading Location: [place] [address] Piotr Alaniz MD IMG CT PROCEDURES Final [...] Performing Organization Information: Site ID: [place] Name: [facility] Address: [address] [place] [address] Director: Miguel Gordillo D.O., MPH us Yesica Palacios MD LAB MICROBIOLOGY - GENERAL ORDERABLES Final Result [facility] [place] from Last 3 Months or Most Recently Relevant to Health Maintenance Insurance UHC MEDICARE ADVANTAGE UHC MEDICARE ADVANTAGE [facility] MEDICARE [facility] MEDICARE [facility] MEDICARE ADVANTAGE Advance Directives For more information, please contact: [phone] Documents on File Type Date Recorded Patient Clinical Sociologist Expl anation ADVANCE DIRECTIVE 09/18/2020 DNR * Full Code (Latest Code Status on File) Date Activated Date Inactivated Comments 08/02/2021 9:31 PM 08/03/2021 10:19 PM * Full Code Date Activated Date Inactivated Comments 09/20/2019 9:06 AM 09/20/2019 3:33 PM * Full Code Date Activated Date Inactivated Comments 09/20/2019 9:05 AM 09/20/2019 9:06 AM Care Teams Cork Insulator Relationship Specialty Start Date End Date Bailey Campos PA [address] [place] [address] PCP - General Family Medicine 09/07/23 Waqas Valle MD Neurosurgery 04/28/17 Bart Perea MD [address] [address] Urology 04/28/17 Riley Navarro [place] [address] Dermatology 04/28/17 Kenji Escobar MD [address] [place] [address] [address] [place] [address] Internal Medicine 04/28/17 Rian Hampton MD [address] [place] [address] [address] [place] [address] Referring Physician Ophthalmology 08/31/18 [place] [address] [place] [address] [place] [address] Consulting Physician Urology 08/03/21
--- OUTSIDE RECORDS SUMMARY | 2025-03-27 16:28 | XMS_ITS | Clinical Summary ---
Author Organization [facility] Address [address] [place] [address] Care Team Providers Care Marketing Effectiveness Manager Name Role Phone Waqas Valle MD Unavailable [phone] Bart Perea MD Unavailable [phone] Riley Navarro MD Unavailable [phone] Kenji Escobar MD Unavailable + Rian Hampton MD Unavailable [phone] Piotr Alaniz MD Unavailable [phone] Bailey Campos Primary Care Provider [phone] Allergies Active Allergy Reactions Criticality Noted Date [...] 07/07/2021 - 08/05/[address] 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 Not on file Not on file Obstetrics History Last Filed Vital Signs Vital Sign Reading Time Taken Comments Blood Pressure 124/70 10/19/2023 9:37 AM PAIRING MACHINE OPERATOR Pulse 56 10/19/2023 9:37 AM PAIRING MACHINE OPERATOR Temperature 36.2 C (97.1 F) 06/24/2022 3:38 PM CDT Respiratory Rate 12 06/24/2022 3:38 PM CDT Oxygen Saturation 96% 06/24/2022 3:38 PM CDT Inhaled Oxygen Concentration - - Weight 89.2 kg (196 lb 9.6 oz) 10/19/2023 9:37 A M PAIRING MACHINE OPERATOR Height 167.6 cm (5' 6 ) 10/19/2023 9:37 AM PAIRING MACHINE OPERATOR Body Mass Index 31.73 10/19/2023 9:37 AM PAIRING MACHINE OPERATOR Plan of Treatment Health Maintenance Due Date [...] Completed 10/20/2021 Medical Devices Implanted Type Area Health Care Coach Device Identifier Shelf Expiration Date Model / Serial / Lot Screw Screw N/A: Back Description:Rods and screws in neck and in lower back Procedures Procedure Name Priority Date/Time Associated Diagnosis Comments CT ABDOMEN W WO CONTRAST Schedule Routine, Read Routine (OP Routine) 10/20/2021 2:36 PM PAIRING MACHINE OPERATOR Malignant neoplasm of right kidney, except renal pelvis (HCC) COLONOSCOPY REPORT 09/07/2017 HEPATITIS C ANTIBODY Routine 04/11/2017 1:33 PM CDT from Last 3 Months or Most Recently Relevant to Health Maintenance Results * CT Abdomen W WO Contrast (10/20/2021 2:36 PM PAIRING MACHINE OPERATOR) Anatomical Region Laterality Modality Body N/A Computed Tomogra phy 10/21/2021 9:39 AM PAIRING MACHINE OPERATOR Narrative 10/21/2021 9:47 AM PAIRING MACHINE OPERATOR EXAM DESCRIPTION: CT ABDOMEN W WO CONTRAST [...] Dylan Barnes M.D. KN: DELVIN Report ID: [id number] Reading Location: [id number] Procedure Note Dylan Barnes MD - 10/21/2021 [...] Dylan Barnes M.D. KN: DELVIN Report ID: [id number] Reading Location: [id number] Piotr Alaniz MD IM CT PROCEDURES Final Result * [...] Site ID: [place] Name: [facility] Address: [facility] [place] [address] Director: Miguel Gordillo D.O., MPH Yesica Palacios MD LAB MICROBIOLOGY - GENERAL ORDERABLES Final Result [facility] [place] from Last 3 Months or Most Recently Relevant to Health Maintenance Insurance [facility] MEDICARE ADVANTAGE [facility] MEDICARE ADVANTAGE [facility] MEDICARE [facility] MEDICARE [facility] MEDIC[facility] Address: [facility] [id number] [place] [id number] [facility] MEDIC[employer] ADVANTAGE Advance Directives For more information, please contact: [phone] Documents on File Type Date Recorded Patient Hardboard Panel Printer Expl anation ADVANCE DIRECTIVE 09/18/2020 DNR * Full Code (Latest Code Status on File) Date Activated Date Inactivated Comments 08/02/2021 9:31 PM 08/03/2021 10:19 PM * Full Code Date Activated Date Inactivated Comments 09/20/2019 9:06 AM 09/20/2019 3:33 PM * Full Code Date Activated Date Inactivated Comments 09/20/2019 9:05 AM 09/20/2019 9:06 AM Care Teams Marketing Effectiveness Manager Relationship Specialty Start Date End Date Bailey Campos PA [address] [facility] [address] PCP - General Family Medicine 09/07/23 Waqas Valle MD Neurosurgery 04/28/17 Bart Perea MD [address] [place] [address] Urology 04/28/17 Riley Navarro MD [address] [facility] [place] [address] Dermatology 04/28/17 Kenji Escobar MD [address] [place] [address] [place] [address] Internal Medicine 04/28/17 Rian Hampton MD [address] [place] [address] [place] [address] Referring Physician Ophthalmology 08/31/18 [place] [address] [place] [address] [place] [id number] Consulting Physician Urology 08/03/21
--- OUTSIDE RECORDS SUMMARY | 2025-03-27 16:28 | XMS_ITS | Encounter Summary ---
Author Organization [facility] Address [address] [facility] [address] [place] [address] Care Team Providers Care Bulk Materials Handling Plant Operator Name Role Phone Yesica Palacios MD Primary Care Provider [phone] Yesica Palacios MD Primary Care Provider + [phone] Yesica Palacios MD Primary Care Provider [phone] Waqas Valle MD Unavailable [phone] Bart Perea MD Unavailable [phone] Riley Navarro MD Unavailable [phone] Kenji Escobar MD Unavailable + Rian Hampton MD Unavailable [phone] Piotr Alaniz MD Unavailable [phone] Bailey Campos Primary Care Provider [phone] Encounter Details Date Type Department Care Team (Late st Contact Info) Description 11/14/2016 Orders Only [facility] Provider, MD Herbie [address] [place] [address] Social History Tobacco Use Types Packs/Day Years Used Date Smoking Tobacco: Never Assessed Sex and Gender Information Value Date Recorded Sex Assigned at Not on file 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 Gender Identity Not on file Sexual Orientation [...] on filedocumented in this encounter Care Teams Bulk Materials Handling Plant Operator Relationship Specialty Start Date End Date Yesica Palacios MD PCP - General 02/03/17 09/06/23 Yesica Palacios MD PCP - General 01/09/17 02/02/17 Yesica Palacios MD PCP - General 05/05/15 01/08/17 Bailey Campos PA [address] [place], [place] [id number] PCP - General Family Medicine 09/07/23 Waqas Valle MD Neurosurgery 04/28/17 Bart Perea MD [address] [address] Urology 04/28/17 Riley Navarro MD [address] [place] [address] Dermatology 04/28/17 Kenji Escobar MD [address] [place] [address] Internal Medicine 04/28/17 Rian [place] MD [address] [place] [address] Referring Physician Ophthalmology 08/31/18 [place] [address] [place] [address] Consulting Physician Urology 08/03/21 documented as of this encounter
--- OUTSIDE RECORDS SUMMARY | 2025-03-27 16:28 | XMS_ITS | Clinical Summary ---
Author Organization [facility] Address [address] [place] [address] Care Team Providers Care Mail Manager Name Role Phone Unavailable Primary Care Provider Unavailabl e Source Comments [facility],non-owned Affiliates and Associated Physician Practices is amultiple site organization consisting of ambulatory clinics and hospital sitesin [place], [place] and [place]. This disclosure is being madepursuant to the Care Everywhere program and may not contain all information available regarding this patient. 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
--- OUTSIDE RECORDS SUMMARY | 2025-03-27 16:29 | XMS_ITS | Encounter Summary ---
Author Organization [facility] Address [address] [facility] [place] [address] Care Team Providers Care Sales Development Specialist Name Role Phone Unavailable Primary Care Provider Unavailabl e Encounter Details Date Type Department Care Team (Late st Contact Info) Description 06/14/2024 Lab Requisition [facility] - DermPath Lab [address] [facility] [place] [id number] Riley Navarro MD [address] [address] Social History Tobacco Use Types Packs/Day Years Used Date Smoking Tobacco: Never Assessed Sex and Gender Information Value Date Recorded Sex Assigned at Not on file 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 Gender Identity Not on file Sexual Orientation Not on file documented as of this encounter Plan of Treatment Not on file documented as of this encounter Procedures Procedure Name Priority Date/Time Associated Diagnosis Comments DERMATOPATHOLOGY Routine 06/12/2024 12:0 0 AM CDT documented in this encounter Results * DERMATOPATHOLOGY (06/12/2024 12:00 AM CDT) Case Report Dermatopathology Report Case: [id number] Authorizing Provider: Riley Navarro MD Collected: 06/12/2024 12:00 AM Ordering Location: [facility] Physician [facility] - Received: 06/14/2024 01:52 PM DermPath [...] characteristic determined by the Dermatopathology Laboratory at [facility], directed by Dr. Luis Mendoza. These tests need not be, and therefore are not, approved by the [place] Food and Drug Administration. The tests are used for clinical purposes. Billing Codes Specimen Charges Stain Charges 36826 21512 1 1 12:48 PM CDT DERMATOPATHOLOGY LABORATORY Embedded Images 12:48 PM CDT DERMATOPATHOLOGY LABORATORY Pathology/Cytology TISSUE SPECIMEN FROM SKIN / Unknown 06/12/2024 06/14/2024 1:52 PM CDT Miscellaneous samples (specimen) TISSUE SPECIMEN FROM SKIN / Unknown 06/12/2024 06/14/2024 1:52 PM CDT us Riley Navarro MD LAB - PATHOLOGY/CYTOLOGY ORD ERABLES Final Result DERMATOPATHOLOGY LABORATORY [facility] - Department of Dermatology [facility] [address] [place] [address], [address] [phone] documented in this encounter Visit Diagnoses Not on filedocumented in this encounter
--- OUTSIDE RECORDS SUMMARY | 2025-03-27 16:29 | XMS_ITS | Encounter Summary ---
Author Organization [facility] Address [address] [facility] [place] [address] Care Team Providers Care Take Out Waiter/Waitress Name Role Phone Unavailable Primary Care Provider Unavailabl e Encounter Details Date Type Department Care Team (Late st Contact Info) Description 10/04/2018 Lab Requisition [facility] Care DermPath Lab [address] [facility] [place] [address] Riley Navarro MD [address] [place] [address] Social History Tobacco Use Types Packs/Day Years Used Date Smoking Tobacco: Never Assessed Sex and Gender Information Value Date Recorded Sex Assigned at Not on file 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 Gender Identity Not on file Sexual Orientation Not on file documented as of this encounter Plan of Treatment Not on file documented as of this encounter Procedures Procedure Name Priority Date/Time Associated Diagnosis Comments DERMATOPATHOLOGY Routine 10/03/2018 12:0 0 AM CHIEF OPERATOR SYNTHESIS documented in this encounter Results * DERMATOPATHOLOGY (10/03/2018 12:00 AM CHIEF OPERATOR SYNTHESIS) Case Report Dermatopathology Report Case: [id number] Authorizing Provider: Riley Navarro MD Collected: 10/03/2018 12:00 AM Pathologist: Alexandria Mendoza MD Received: 10/04/2018 02:06 PM Specimen: Skin, left post neck 8 2:39 PM CHIEF OPERATOR SYNTHESIS DERMATOPATHOLOGY LABORATORY Final Diagnosis Specimen A. 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 8 2:39 PM CHIEF OPERATOR SYNTHESIS DERMATOPATHOLOGY LABORATORY Gross Description Specimen A: Received is one formalin filled container labeled with the patient's name and designated left post neck. The specimen consists of a shave biopsy measuring [id number], bisected. Jar 0. 8 2:39 PM [facility] DERMATOPATHOLOGY LABORATORY Microscopic Description Specimen A. SKIN, left post neck: This dome-shaped lesion contains dilated blood vessels, coarse collagen bundles, and stellate fibroblasts. 8 2:39 PM [facility] DERMATOPATHOLOGY LABORATORY Disclaimer An external and internal positive and negative controls are appropriate for the histochemical, immunohistochemical and immunofluorescence stain(s) in this case (if any), except where stated explicitly. The performance characteristics of the stain(s) cited in this report were developed and its performance characteristic determined by the Dermatopathology Laboratory at [facility]. These tests need not be, and therefore are not, approved by the [place] Food and Drug Administration. The tests are used for clinical purposes. Billing Codes Specimen Charges Stain Charges 51708 1 8 2:39 PM [facility] DERMATOPATHOLOGY LABORATORY Embedded Images 8 2:39 PM [facility] DERMATOPATHOLOGY LABORATORY Pathology/Cytolog y TISSUE SPECIMEN FROM SKIN / Unknown 10/03/2018 10/04/2018 2:06 PM CHIEF OPERATOR SYNTHESIS Riley Navarro MD LAB - PATHOLOGY/CYTOLOGY ORD ERABLES Final Result DERMATOPATHOLOGY LABORATORY [facility] - Department of Dermatology [address] [place] [address], 5th [place] [address], [facility] [phone] documented in this encounter Visit Diagnoses Not on filedocumented in this encounter
--- OUTSIDE RECORDS SUMMARY | 2025-03-27 16:29 | XMS_ITS | Encounter Summary ---
Author Organization [facility] Address [address] [facility] [place] [address] Care Team Providers Care Online Retailer Name Role Phone Unavailable Primary Care Provider Unavailabl e Encounter Details Date Type Department Care Team (Late st Contact Info) Description 07/27/2022 Lab Requisition [facility] DermPath Lab [address] [place] [address] Riley Navarro MD [address] [place] [address] Social History Tobacco Use Types Packs/Day Years Used Date Smoking Tobacco: Never Assessed Sex and Gender Information Value Date Recorded Sex Assigned at Not on file 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 Gender Identity Not on file Sexual Orientation Not on file documented as of this encounter Plan of Treatment Not on file documented as of this encounter Procedures Procedure Name Priority Date/Time Associated Diagnosis Comments DERMATOPATHOLOGY Routine 07/26/2022 12:0 0 AM CDT documented in this encounter Results * DERMATOPATHOLOGY (07/26/2022 12:00 AM CDT) Case Report Dermatopathology Report Case: [id number] Authorizing Provider: Riley Navarro MD Collected: 07/26/2022 12:00 AM Ordering Location: [facility] DermPath Lab Received: 07/27/2022 04:33 PM Pathologist: [...] characteristic determined by the Dermatopathology Laboratory at [facility], directed by Dr. Luis Mendoza. These tests need not be, and therefore are not, approved by the [place] Food and Drug Administration. The tests are used for clinical purposes. Billing Codes Specimen Charges Stain Charges 57923 1 69520 1 2 3:56 PM CDT DERMATOPATHOLOGY LABORATORY Embedded Images 2 3:56 PM CDT DERMATOPATHOLOGY LABORATORY Pathology/Cytolog y TISSUE SPECIMEN FROM SKIN / Unknown 07/26/2022 07/27/2022 4:33 PM CDT Riley Navarro MD LAB - PATHOLOGY/CYTOLOGY ORD ERABLES Final Result DERMATOPATHOLOGY LABORATORY [facility] - Department of Dermatology [address], [address] [phone] documented in this encounter Visit Diagnoses Not on filedocumented in this encounter
[2025-03-27 17:12] VITALS: BP 155/72; PULSE 77; RESP 18; O2SAT 100
--- NOTE | 2025-03-27 18:02 | PC.NURSE ---
Ambulated to door of room using walker. Tolerated well.
== END 2025-03-27 19:04 | disposition home or self-care (01) ==
PROVIDERS: Physician Assistant; Emergency Provider Emergency Medicine; PCP Family Medicine
DX: M54.42 Lumbago with sciatica, left side (principal); M54.41 Lumbago with sciatica, right side; M79.605 Pain in left leg; M79.604 Pain in right leg; I10 Essential (primary) hypertension; L40.9 Psoriasis, unspecified; K21.9 Gastro-esophageal reflux disease without esophagitis; M17.11 Unilateral primary osteoarthritis, right knee; F41.9 Anxiety disorder, unspecified; Z85.528 Personal history of other malignant neoplasm of kidney; Z87.891 Personal history of nicotine dependence; Z90.49 Acquired absence of other specified parts of digestive tract; M51.369 Other intervertebral disc degeneration, lumbar region without mention of lumbar back pain or lower extremity pain; D35.01 Benign neoplasm of right adrenal gland; Z79.899 Other long term (current) drug therapy
CPT/HCPCS: 36415; 72131; 80053; 85025; 85610; 85730; 99284; A9270

== ENCOUNTER 2025-04-17 15:36 | Outpatient (CLI) | payer MEDICARE, SELFPAY ==
--- NOTE | ~2025-04-17 | MR_ITS ---
MRI of the lumbar spine Clinical History: Radiculopathy Technique: Axial T2-weighted images, and sagittal T1-weighted, T2-weighted, and and T2 fat-sat images were acquired. Findings: No acute fracture seen. There is posterior fusion from L4 to L5, with bilateral rods and tr anspedicular screws present, as well as disc fusion device at the L4-5 disc space. There is 6 mm ante rolisthesis of L3 over L4. There is 6 mm anterolisthesis of L4 over L5. There is 3 mm retrolisthesis of L2 over L3. No bone marrow signal abnormality seen. At L1-L2, there is no disc bulge or herniation. There is moderate facet hypertrophy. No spinal canal stenosis. There is mild bilateral neural foraminal narrowing, left worse than right. At L2-L3, there is advanced degenerative disc narrowing. Disc bulge and severe facet arthropathy are present. Additional 1.2 cm synovial cyst contribute to severe spinal canal stenosis and thecal sac co mpression at this level. Synovial cyst is somewhat midline located, somewhat unclear which side it or iginates from, but favor to originate from the left side. There is severe bilateral neural foraminal narrowing at this level. At L3-L4, there is advanced degenerative disc disease. Diffuse disc bulge/uncovering and advanced fac et arthropathy result in moderate central canal stenosis at this level. There is severe bilateral rommel ral foraminal, otherwise. At L4-L5, there is moderate central canal stenosis. There is advanced bilateral neural foraminal narr owing. At L5-S1, there is disc bulge and moderate facet arthropathy. There is right lateral recess stenosis. No central canal stenosis. There is severe right neural foraminal narrowing and moderate left neural foraminal narrowing. Paravertebral soft tissues are unremarkable, aside from expected postoperative change. Impression: Severe degenerative spondylosis at L2-L3, including 1.2 cm synovial cyst, with severe spinal canal st enosis and thecal sac compression at this level. Multilevel severe bilateral neural foraminal narrowing in the lumbar spine, as detailed above. 6 mm anterolisthesis of L3 over L4. 2 mm anterolisthesis of L4 over L5. 3 mm retrolisthesis of L2 over L3. Posterior and interbody fusion changes from L4 to L5, as detailed above. Reviewed, dictated and finalized at location M. Impression: Severe degenerative spondylosis at L2-L3, including 1.2 cm synovial cyst, with severe spinal canal stenosis and thecal sac compression at this level. Multilevel severe bilateral neural foraminal narrowing in the lumbar spine, as detailed above. 6 mm anterolisthesis of L3 over L4. 2 mm anterolisthesis of L4 over L5. 3 mm retrolisthesis of L2 over L3. Posterior and interbody fusion changes from L4 to L5, as detailed above.
--- OUTSIDE RECORDS SUMMARY | 2025-04-17 15:58 | XMS_ITS | Clinical Summary ---
Author Organization [facility] Address [address] [place] [address] Care Team Providers Care Salesperson Floor Coverings Name Role Phone Waqas Valle MD Unavailable [phone] Bart Perea MD Unavailable [phone] Riley Navarro MD Unavailable [phone] Kenji Escobar MD Unavailable + Rian [place] MD Unavailable [phone] Piotr Alaniz MD Unavailable [phone] Bailey Campos Primary Care Provider [phone] Allergies Active Allergy Reactions Criticality Noted Date [...] 30 capsule 5 06/26/20 20 020 Discontinued Active Problems Problem Noted Date Diagnosed [...] 07/07/2021 - 08/05/[address] 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 on file Not on file Not on file Obstetrics History Last Filed Vital Signs Vital Sign Reading Time Taken Comments Blood Pressure 124/70 10/19/2023 9:37 AM JANITORIAL TECH Pulse 56 10/19/2023 9:37 AM JANITORIAL TECH Temperature 36.2 C (97.1 F) 06/24/2022 3:38 PM CDT Respiratory Rate 12 06/24/2022 3:38 PM CDT Oxygen Saturation 96% 06/24/2022 3:38 PM CDT Inhaled Oxygen Concentration - - Weight 89.2 kg (196 lb 9.6 oz) 10/19/2023 9:37 A M JANITORIAL TECH Height 167.6 cm (5' 6) 10/19/2023 9:37 AM JANITORIAL TECH Body Mass Index 31.73 10/19/2023 9:37 AM JANITORIAL TECH Plan of Treatment Health Maintenance Due Date [...] Completed 10/20/2021 Medical Devices Implanted Type Area Lamp Shade Maker Device Identifier Shelf Expiration Date Model / Serial / Lot Screw Screw N/A: Back Description:Rods and screws in neck and in lower back Procedures Procedure Name Priority Date/Time Associated Diagnosis Comments CT ABDOMEN W WO CONTRAST Schedule Routine, Read Routine (OP Routine) 10/20/2021 2:36 PM JANITORIAL TECH Malignant neoplasm of right kidney, except renal pelvis (HCC) COLONOSCOPY REPORT 09/07/2017 HEPATITIS C ANTIBODY Routine 04/11/2017 1:33 PM CDT from Last 3 Months or Most Recently Relevant to Health Maintenance Results * CT Abdomen W WO Contrast (10/20/2021 2:36 PM JANITORIAL TECH) Anatomical Region Laterality Modality Body N/A Computed Tomogra phy 10/21/2021 9:39 AM JANITORIAL TECH Narrative 10/21/2021 9:47 AM JANITORIAL TECH EXAM DESCRIPTION: CT ABDOMEN W WO CONTRAST [...] Dylan Barnes M.D. KN: DELVIN Report ID: [id number] Reading Location: [id number] Procedure Note Dylan Barnes MD - 10/21/2021 [...] Dylan Barnes M.D. KN: DELVIN Report ID: [id number] Reading Location: [id number] Piotr Alaniz MD IMG CT PROCEDURES Final [...] Site ID: [place] Name: Nannette Seth Address: [address] [address] Director: Miguel Gordillo D.O., MPH us Yesica Palacios MD LAB MICROBIOLOGY - GENERAL ORDERABLES Final Result [facility] [place] Guerra from Last 3 Months or Most Recently Relevant to Health Maintenance Insurance [employer] MEDICARE ADVANTAGE Member Subscriber Plan / Payer (Ef fective 2016-Present) Name:MARIANA CHAVARRIA Relation to Subscriber:Self Name:Mariana Chavarria Payer ID:[id number] (NAIC) Type:[facility] MEDICARE Address: [place] [phone] [facility] MEDICARE ADVANT[place] [address] [address] MEDICARE [facility] MEDICARE [facility] MEDICARE ADVANTAGE Advance Directives For more information, please contact: [phone] Documents on File Type Date Recorded Patient Blood Donor Recruiter Expl anation ADVANCE DIRECTIVE 09/18/2020 DNR * Full Code (Latest Code Status on File) Date Activated Date Inactivated Comments 08/02/2021 9:31 PM 08/03/2021 10:19 PM * Full Code Date Activated Date Inactivated Comments 09/20/2019 9:06 AM 09/20/2019 3:33 PM * Full Code Date Activated Date Inactivated Comments 09/20/2019 9:05 AM 09/20/2019 9:06 AM Care Teams Salesperson Floor Coverings Relationship Specialty Start Date End Date Bailey Campos PA [address] [place] [address] PCP - General Family Medicine 09/07/23 Waqas Valle MD Neurosurgery 04/28/17 Bart Perea MD [address] [place] [address] Urology 04/28/17 Riley Navarro MD [address] [place] [address] Dermatology 04/28/17 Kenji Escobar MD [address] [place] [address] [place] [address] Internal Medicine 04/28/17 Rian [place] MD [address] [place] [address] [address] [place] [address] Referring Physician Ophthalmology 08/31/18 [place] [address] [place] [address] Consulting Physician Urology 08/03/21
--- OUTSIDE RECORDS SUMMARY | 2025-04-17 15:58 | XMS_ITS | Encounter Summary ---
Author Organization [facility] Address [address] [facility] [place] [address] Care Team Providers Care Baseball Inspector Name Role Phone Unavailable Primary Care Provider Unavailabl e Encounter Details Date Type Department Care Team (Late st Contact Info) Description 10/04/2018 Lab Requisition [facility] Care DermPath Lab [address] [facility] [place] [address] Riley Navarro MD [address] [place] [address] Social History Tobacco Use Types Packs/Day Years Used Date Smoking Tobacco: Never Assessed Sex and Gender Information Value Date Recorded Sex Assigned at Not on file Legal Sex Male 6:22 PM SENIOR 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 DBA Gender Identity Not on file Sexual Orientation Not on file documented as of this encounter Plan of Treatment Not on file documented as of this encounter Procedures Procedure Name Priority Date/Time Associated Diagnosis Comments DERMATOPATHOLOGY Routine 10/03/2018 12:0 0 AM SENIOR ORACLE DBA documented in this encounter Results * DERMATOPATHOLOGY (10/03/2018 12:00 AM SENIOR ORACLE DBA) Case Report Dermatopathology Report Case: [id number] Authorizing Provider: Riley Navarro MD Collected: 10/03/2018 12:00 AM Pathologist: Alexandria Mendoza MD Received: 10/04/2018 02:06 PM Specimen: Skin, left post neck 8 2:39 PM SENIOR ORACLE DBA DERMATOPATHOLOGY LABORATORY Final Diagnosis Specimen A. SKIN, left post neck: FIBROMA (D21.9) 8 2:39 PM SENIOR ORACLE DBA DERMATOPATHOLOGY LABORATORY at 1439 SENIOR ORACLE DBA Clinical History R/O dys nevus. 8 2:39 PM SENIOR ORACLE DBA DERMATOPATHOLOGY LABORATORY Gross Description Specimen A: Received is one formalin filled container labeled with the patient's name and designated left post neck. The specimen consists of a shave biopsy measuring [id number], bisected. Jar 0. 8 2:39 PM [facility] DERMATOPATHOLOGY LABORATORY Microscopic Description Specimen A. SKIN, left post neck: This dome-shaped lesion contains dilated blood vessels, coarse collagen bundles, and stellate fibroblasts. 8 2:39 PM [facility] DERMATOPATHOLOGY LABORATORY Disclaimer An external and internal positive and negative controls are appropriate for the histochemical, immunohistochemical and immunofluorescence stain(s) in this case (if any), except where stated explicitly. The performance characteristics of the stain(s) cited in this report were developed and its performance characteristic determined by the Dermatopathology Laboratory at [facility]. These tests need not be, and therefore are not, approved by the [place] Food and Drug Administration. The tests are used for clinical purposes. Billing Codes Specimen Charges Stain Charges 56371 1 8 2:39 PM [facility] DERMATOPATHOLOGY LABORATORY Embedded Images 8 2:39 PM [facility] DERMATOPATHOLOGY LABORATORY Pathology/Cytolog y TISSUE SPECIMEN FROM SKIN / Unknown 10/03/2018 10/04/2018 2:06 PM SENIOR ORACLE DBA Riley Navarro MD LAB - PATHOLOGY/CYTOLOGY ORD ERABLES Final Result DERMATOPATHOLOGY LABORATORY [facility] - Department of Dermatology [address] [place] [address], 5th [place] [address], [facility] [phone] documented in this encounter Visit Diagnoses Not on filedocumented in this encounter
--- OUTSIDE RECORDS SUMMARY | 2025-04-17 15:58 | XMS_ITS | Referral Summary ---
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 Gender Identity Not on file Sexual Orientation Not on file 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 on file Not on file Not on file Last Filed Vital Signs Vital Sign Reading Time Taken Comments Blood Pressure 124/70 10/19/2023 9:37 AM MECHANICAL INTEGRITY SPECIALIST Pulse 56 10/19/2023 9:37 AM MECHANICAL INTEGRITY SPECIALIST Temperature 36.2 C (97.1 F) 06/24/2022 3:38 PM CDT Respiratory Rate 12 06/24/2022 3:38 PM CDT Oxygen Saturation 96% 06/24/2022 3:38 PM CDT Inhaled Oxygen Concentration - - Weight 89.2 kg (196 lb 9.6 oz) 10/19/2023 9:37 A M MECHANICAL INTEGRITY SPECIALIST Height 167.6 cm (5' 6) 10/19/2023 9:37 AM MECHANICAL INTEGRITY SPECIALIST Body Mass Index 31.73 10/19/2023 9:37 AM MECHANICAL INTEGRITY SPECIALIST Plan of Treatment Not on file Medical Devices Implanted Type Area Spectrographer Device Identifier Shelf Expiration Date Model / Serial / Lot Screw Screw N/A: Back Description:Rods and screws in neck and in lower back Procedures Procedure Name Priority Date/Time Associated Diagnosis Comments CT ABDOMEN W WO CONTRAST Schedule Routine, Read Routine (OP Routine) 10/20/2021 2:36 PM MECHANICAL INTEGRITY SPECIALIST Malignant neoplasm of right kidney, except renal pelvis (HCC) COLONOSCOPY REPORT 09/07/2017 HEPATITIS C ANTIBODY Routine 04/11/2017 1:33 PM CDT from Last 3 Months or Most Recently Relevant to Health Maintenance Results * CT Abdomen W WO Contrast (10/20/2021 2:36 PM MECHANICAL INTEGRITY SPECIALIST) Anatomical Region Laterality Modality Body N/A Computed Tomogra phy 10/21/2021 9:39 AM MECHANICAL INTEGRITY SPECIALIST Narrative 10/21/2021 9:47 AM MECHANICAL INTEGRITY SPECIALIST EXAM DESCRIPTION: CT ABDOMEN W WO CONTRAST [...] Dylan Barnes M.D. KN: DELVIN Report ID: [id number] Reading Location: [id number] Procedure Note Dylan Barnes MD - 10/21/2021 [...] Dylan Barnes M.D. KN: DELVIN Report ID: [id number] Reading Location: [place] [address] Piotr Alaniz MD IMG CT PROCEDURES Final Result * COLONOSCOPY REPORT (09/07/2017) Anatomical Region Laterality Modality Other Provider Scanning GI PROCEDURE ORDERABLES Final Result * Hepatitis C antibody (04/11/2017 1:33 PM CDT) Hep C Ab NON-REACTI VE NON-REACTI VE [facility] SIGNAL TO CUT-OFF 0.07 <1.00 [facility] 04/11/2017 1:33 PM CDT 04/11/2017 1:34 PM CDT Narrative [facility] - 04/12/2017 8:25 AM CDT FASTING:YES Resulting Agency Comment Performing Organization Information: Site ID: [facility] Name: [facility] Address: [address] [place] [address] [place] [address] Director: Miguel Gordillo D.O., MPH Yeisca Palacios MD LAB MICROBIOLOGY - GENERAL ORDERABLES Final Result [facility] Gu[facility] from Last 3 Months or Most Recently Relevant to Health Maintenance Insurance [facility] MEDICARE [facility] Address: [address] [address] [place] [address] UHC MEDICARE ADVANTAGE [facility] MEDICARE [facility] MEDICARE [facility] MEDICARE ADVANTAGE Advance Directives For more information, please contact: [phone] Documents on File Type Date Recorded Patient Furnace Feeder Expl anation ADVANCE DIRECTIVE 09/18/2020 DNR * Full Code (Latest Code Status on File) Date Activated Date Inactivated Comments 08/02/2021 9:31 PM 08/03/2021 10:19 PM * Full Code Date Activated Date Inactivated Comments 09/20/2019 9:06 AM 09/20/2019 3:33 PM * Full Code Date Activated Date Inactivated Comments 09/20/2019 9:05 AM 09/20/2019 9:06 AM Care Teams Gasoline Dragline Operator Relationship Specialty Start Date End Date Bailey Campos PA [address] [place] [address] PCP - General Family Medicine 09/07/23 Waqas Valle MD Neurosurgery 04/28/17 Bart Perea MD [address] [place] [address] Urology 04/28/17 Riley Navarro MD [address] [place] [address] Dermatology 04/28/17 Kenji Escobar MD [address] [facility] [address] [place] [address] Internal Medicine 04/28/17 Rian [place] MD [address] [facility] [address] [place] [address] Referring Physician Ophthalmology 08/31/18 [place] [address] [place] [address] [place] [address] Consulting Physician Urology 08/03/21
--- OUTSIDE RECORDS SUMMARY | 2025-04-17 15:58 | XMS_ITS | Encounter Summary ---
Author Organization [facility] Address [address] [facility] [place] [address] Care Team Providers Care Funeral Service Licensee Name Role Phone Unavailable Primary Care Provider Unavailabl e Encounter Details Date Type Department Care Team (Late st Contact Info) Description 07/27/2022 Lab Requisition [facility] DermPath Lab [address] [place] [address] Riley Navarro MD [address] [place] [address] Social History Tobacco Use Types Packs/Day Years Used Date Smoking Tobacco: Never Assessed Sex and Gender Information Value Date Recorded Sex Assigned at Not on file 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 Gender Identity Not on file Sexual Orientation Not on file documented as of this encounter Plan of Treatment Not on file documented as of this encounter Procedures Procedure Name Priority Date/Time Associated Diagnosis Comments DERMATOPATHOLOGY Routine 07/26/2022 12:0 0 AM CDT documented in this encounter Results * DERMATOPATHOLOGY (07/26/2022 12:00 AM CDT) Case Report Dermatopathology Report Case: [id number] Authorizing Provider: Riley Navarro MD Collected: 07/26/2022 12:00 AM Ordering Location: [facility] Received: 07/27/2022 04:33 PM Pathologist: [...] determined by the Dermatopathology Laboratory at [facility], directed by Dr. Luis Mendoza. These tests need not be, and therefore are not, approved by the [place] Food and Drug Administration. The tests are used for clinical purposes. Billing Codes Specimen Charges Stain Charges 52514 1 92489 1 2 3:56 PM CDT DERMATOPATHOLOGY LABORATORY Embedded Images 2 3:56 PM CDT DERMATOPATHOLOGY LABORATORY Pathology/Cytolog y TISSUE SPECIMEN FROM SKIN / Unknown 07/26/2022 07/27/2022 4:33 PM CDT Riley Navarro MD LAB - PATHOLOGY/CYTOLOGY ORD ERABLES Final Result DERMATOPATHOLOGY LABORATORY [facility] - Department of Dermatology [address], [address] Floor [address] [phone] documented in this encounter Visit Diagnoses Not on filedocumented in this encounter
--- OUTSIDE RECORDS SUMMARY | 2025-04-17 15:58 | XMS_ITS | Encounter Summary ---
Author Organization [facility] Address [address] [place] [address] Care Team Providers Care Television Mechanic Name Role Phone Unavailable Primary Care Provider Unavailabl e Encounter Details Date Type Department Care Team (Late st Contact Info) Description 06/14/2024 Lab Requisition [facility] - DermPath Lab [address] [facility] [place] [address] Riley Navarro MD [address] [address] Social History Tobacco Use Types Packs/Day Years Used Date Smoking Tobacco: Never Assessed Sex and Gender Information Value Date Recorded Sex Assigned at Not on file 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 Gender Identity Not on file Sexual Orientation Not on file documented as of this encounter Plan of Treatment Not on file documented as of this encounter Procedures Procedure Name Priority Date/Time Associated Diagnosis Comments DERMATOPATHOLOGY Routine 06/12/2024 12:0 0 AM CDT documented in this encounter Results * DERMATOPATHOLOGY (06/12/2024 12:00 AM CDT) Case Report Dermatopathology Report Case: [id number] Authorizing Provider: Riley Navarro MD Collected: 06/12/2024 12:00 AM Ordering Location: [facility] Physician [facility] - Received: 06/14/2024 01:52 PM [...] characteristic determined by the Dermatopathology Laboratory at [facility], directed by Dr. Luis Mendoza. These tests need not be, and therefore are not, approved by the [place] Food and Drug Administration. The tests are used for clinical purposes. Billing Codes Specimen Charges Stain Charges 26768 99964 1 1 12:48 PM CDT DERMATOPATHOLOGY LABORATORY Embedded Images 12:48 PM CDT DERMATOPATHOLOGY LABORATORY Pathology/Cytology TISSUE SPECIMEN FROM SKIN / Unknown 06/12/2024 06/14/2024 1:52 PM CDT Miscellaneous samples (specimen) TISSUE SPECIMEN FROM SKIN / Unknown 06/12/2024 06/14/2024 1:52 PM CDT us Riley Navarro MD LAB - PATHOLOGY/CYTOLOGY ORD ERABLES Final Result DERMATOPATHOLOGY LABORATORY [facility] - Department of Dermatology [facility] Medicine [address] [place] [address], [address] [phone] documented in this encounter Visit Diagnoses Not on filedocumented in this encounter
--- OUTSIDE RECORDS SUMMARY | 2025-04-17 15:58 | XMS_ITS | Patient Health Record ---
Author Organization [facility] Address [address] [place] [address] Care Team Providers Care Field Hand Name Role Phone Anna James Unavailable [phone] Devin Haywood Unavailable [phone] Allergies No Known Allergies Reason For Referral No Information Medications Medication SIG (Take, Route, Frequency, Duration) Notes Start Date End Date Status TIOTROPIUM 2.5 MCG-OLODATEROL 2.5 MCG/ACTUATION MIST FOR INHALATION *Reorder from [employer] for eRx and Interaction Alerts* 02/21/2024 Active [...] Active PreserVision AREDS *Pick strengt h-form from [employer] for eRX* 02/21/2024 Active Metoprolol Tartrate 25 [...] Risk Notes Problem Moderate recurrent major depression (07277297) Major depressive disorder, recurrent, moderate (F33.1) Active confirmed Problem Generalized anxiety disorder (30529390) Generalized anxiety disorder (F41.1) Active confirmed Problem Primary insomnia (2426079) Primary insomnia (F51.01) Active confirmed Problem 06204241 Recurrent major depressive disorder, in remission (F33.40) Active confirmed Problem Essential hypertension (46178942) Benign essential HTN (I10) Active confirmed Vital Signs Heart Rate 87 /min 11/22/2024 Height-cm 170.18 cm 02/20/2025 Blood pressure diastolic 82 mm Hg 11/22/2024 Weight-kg 80.74 kg 11/22/2024 Height 67.00 in 02/20/2025 Blood pressure systolic 140 mm Hg 11/22/2024 Weight 178 lbs 11/22/2024 BMI 27.88 kg/m2 11/22/2024 Encounters Encounter Location Date Provider Diagnosis [facility] [place] [address] [place] [address] 05/22/2024 Thena Yobany Major depressive disorder, recurrent, moderate F33.1 ; Generalized anxiety disorder F41.1 and Primary insomnia F51.01 [employer] [facility] [address] [place] [address] 08/22/2024 Thena Yobany Major depressive disorder, recurrent, moderate F33.1 ; Generalized anxiety disorder F41.1 and Primary insomnia F51.01 [employer] [facility] [address] [place] [address] 11/22/2024 Thena Yobany Recurrent major depressive disorder, in remission F33.40 ; Generalized anxiety disorder F41.1 and Benign essential HTN I10 [facility] [address] [place] [address] 02/20/2025 Anna James Major depressive disorder, recurrent, moderate F33.1 ; Generalized anxiety disorder F41.1 ; Primary insomnia F51.01 ; Encounter for screening for cardiovascular disorders Z13.6 and Encounter for screening for depression Z13.31 [place] [address] [address] [facility] [address] [facility] [address] [place] [address] 02/20/2025 Anna James Recurrent major depressive disorder, in remission F33.40 [place] [address] [address] [facility] [address] [facility] [address] [place] [address] 02/26/2025 Anna James [place] [address] [facility] [address] [facility] [address] [place] [address] 02/26/2025 Anna James Assessments Encounter Date Diagnosis [...] Of Treatment Next Appt Details Provider Name:Anna Jennifer ross, 06/18/2025 02:45:00 PM, [address] [facility] [address], [facility] [address], [place], [address], Insurance Providers Payer Name Payer Address Payer Phone Subscriber Number Group Number Insured Name Patient Relationship to Insured Coverage Start Date Coverage End Date [employer] Medicare Replacemen t/Advantag e - Ppo [address] [place] [address] [id number] MARIANA CHAVARRIA Self - patient is the insured Medical (General) History Medical History History ICD Code Problems: Generalized anxiety disorder Moderate recurrent major depression , Surgical History Surgery Date(Month/Year) Spinal cord excision (508730210) Cancer stage docd metast (3301F) Extraction of cataract (29455674) Procedure on back (286463685)
--- OUTSIDE RECORDS SUMMARY | 2025-04-17 15:58 | XMS_ITS | Encounter Summary ---
Author Organization [facility] Address [address] [facility] [address] [place] [address] Care Team Providers Care Milk Condenser Name Role Phone Yesica Palacios MD Primary Care Provider [phone] Yesica Palacios MD Primary Care Provider + [phone] Yesica Palacios MD Primary Care Provider [phone] Waqas Valle MD Unavailable [phone] Bart Perea MD Unavailable [phone] Riley Navarro MD Unavailable [phone] Kenji Escobar MD Unavailable + Rian [place] MD Unavailable [phone] Piotr Alaniz MD Unavailable [phone] Bailey Campos Primary Care Provider [phone] Encounter Details Date Type Department Care Team (Late st Contact Info) Description 11/14/2016 Orders Only [facility] Provider, MD Herbie [address] [place] [address] Social History Tobacco Use Types Packs/Day Years Used Date Smoking Tobacco: Never Assessed Sex and Gender Information Value Date Recorded Sex Assigned at Not on file 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 Gender Identity Not on file Sexual Orientation [...] on filedocumented in this encounter Care Teams Milk Condenser Relationship Specialty Start Date End Date Yesica Palacios MD PCP - General 02/03/17 09/06/23 Yesica Palacios MD PCP - General 01/09/17 02/02/17 Yesica Palacios MD PCP - General 05/05/15 01/08/17 Bailey Campos PA [address] [place], [place] [id number] PCP - General Family Medicine 09/07/23 Waqas Valle MD Neurosurgery 04/28/17 Bart Perea MD [address] [address] Urology 04/28/17 Riley Navarro MD [address] [place] [address] Dermatology 04/28/17 Kenji Escobar MD [address] [place] [address] Internal Medicine 04/28/17 Rian [place] MD [address] [place] [address] Referring Physician Ophthalmology 08/31/18 [place] [address] [place] [place] [address] Consulting Physician Urology 08/03/21 documented as of this encounter
--- OUTSIDE RECORDS SUMMARY | 2025-04-17 15:58 | XMS_ITS | Clinical Summary ---
Author Organization [facility] Address [address] [place] [address] Care Team Providers Care Conservation Policy Analyst Name Role Phone Unavailable Primary Care Provider Unavailabl e Source Comments [facility] [employer],non-owned Affiliates and Associated Physician Practices is amultiple site organization consisting of ambulatory clinics and hospital sitesin [place], [place], [place] and [place]. This disclosure is being madepursuant to the Care Everywhere program and may not contain all information available regarding this patient. 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
== END 2025-04-17 15:37 | disposition home or self-care (01) ==
PROVIDERS: PCP Family Medicine; Visit Provider Family Medicine
DX: M47.26 Other spondylosis with radiculopathy, lumbar region (principal); Z98.1 Arthrodesis status
CPT/HCPCS: 72148

== ENCOUNTER 2025-04-22 15:36 | Outpatient (CLI) | payer MEDICARE, SELFPAY ==
--- NOTE | ~2025-04-22 | XR_ITS ---
HISTORY: M25.562 - Pain in left knee COMPARISON: None TECHNIQUE: 2 views of the left knee were performed FINDINGS: No acute or subacute fracture, erosion, lytic or sclerotic lesion. Medial tibiofemoral joint space narrowing is identified. No suprapatellar joint effusion is identified. The infrapatellar joint space is clear. IMPRESSION: Degenerative disease without acute fracture. Further characterization with MRI may be performed if the patient is clinically able. Reviewed, dictated and finalized at location A.
[2025-04-22 16:27] LABS: Basophils Absolute Auto 0.1 K/mm3 (0.0-0.1); Basophils Percent Auto 0.9 % (0.2-1.2); Eosinophils Absolute Auto 0.5 K/mm3 (0-0.3); Eosinophils Percent Auto 6.9 % (0-4.4); Hematocrit 39.3 % (42.0-52.0); Hemoglobin 12.8 g/dL (14.0-18.0); Immature Granulocyte Absolute 0.02 K/mm3 (0.00-0.031); Immature Granulocyte Percent A 0.3 % (0-0.5); Lymphocytes Absolute Auto 1.86 K/mm3 (0.9-3.2); Lymphocytes Percent Auto 23.6 % (18.3-44.2); Mean Corpuscular HGB Conc 32.6 g/dl (32-36); Mean Corpuscular Hemoglobin 31.2 pg (26-34); Mean Corpuscular Volume 95.9 fl (80-100); Mean Platelet Volume 9.5 fl (7.4-10.4); Monocytes Absolute Auto 0.8 K/mm3 (0.1-0.6); Monocytes Percent Auto 10.7 % (2.6-8.5); Neutrophils Absolute Auto 4.6 K/mm3 (1.3-6.7); Neutrophils Percent Auto 57.6 % (45.5-73.1); Platelet Count Result 319 k/mm3 (150-375); White Blood Count 7.9 K/mm3 (4.5-10.0)
--- OUTSIDE RECORDS SUMMARY | 2025-04-22 16:28 | XMS_ITS | Clinical Summary ---
Author Organization [facility] Address [address] [place] [address] Care Team Providers Care Emergency Dispatcher Name Role Phone Waqas Valle MD Unavailable [phone] Bart Perea MD Unavailable [phone] Riley Navarro MD Unavailable [phone] Kenji Escobar MD Unavailable + Rian [place] MD Unavailable [phone] Piotr Alaniz MD Unavailable [phone] Bailey Campos Primary Care Provider [phone] Allergies Active Allergy Reactions Criticality Noted Date [...] 07/07/2021 - 08/05/[address] 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.] Completed 10/20/2021 Medical Devices Implanted Type Area Manufacturing Controls Engineer Device Identifier Shelf Expiration Date Model / Serial / Lot Screw Screw N/A: Back Description:Rods and screws in neck and in lower back Procedures Procedure Name Priority Date/Time Associated Diagnosis Comments CT ABDOMEN W WO CONTRAST Schedule Routine, Read Routine (OP Routine) 10/20/2021 2:36 PM PUFFER TENDER Malignant neoplasm of right kidney, except renal pelvis (HCC) COLONOSCOPY REPORT 09/07/2017 HEPATITIS C ANTIBODY Routine 04/11/2017 1:33 PM CDT from Last 3 Months or Most Recently Relevant to Health Maintenance Results * CT Abdomen W WO Contrast (10/20/2021 2:36 PM PUFFER TENDER) Anatomical Region Laterality Modality Body N/A Computed Tomogra phy 10/21/2021 9:39 AM PUFFER TENDER Narrative 10/21/2021 9:47 AM PUFFER TENDER EXAM DESCRIPTION: CT ABDOMEN W WO CONTRAST [...] Dylan Barnes M.D. KN: DELVIN Report ID: [id number] Reading Location: [id number] Procedure Note Dylan Barnes MD - 10/21/2021 [...] Dylan Barnes M.D. KN: DELVIN Report ID: [id number] Reading Location: [id number] Piotr Alaniz MD IMG CT PROCEDURES Final [...] Site ID: [place] Name: Nannette Seth Address: [address] [address] Director: Miguel Gordillo D.O., MPH us Yesica Palacios MD LAB MICROBIOLOGY - GENERAL ORDERABLES Final Result [facility] [place] Guerra from Last 3 Months or Most Recently Relevant to Health Maintenance Insurance UHC MEDICARE ADVANTAGE Member Subscriber Plan / Payer (Ef fective 2016-Present) Name:MARIANA CHAVARRIA Relation to Subscriber:Self Name:Mariana Chavarria Payer ID:[id number] (NAIC) Type:[facility] MEDICARE Address: [place] [phone] [facility] MEDICARE ADVANT[place] [address] MEDICARE [facility] MEDICARE [facility] MEDICARE ADVANTAGE Advance Directives For more information, please contact: [phone] Documents on File Type Date Recorded Patient Assembler Rubber Footwear Expl anation ADVANCE DIRECTIVE 09/18/2020 DNR * Full Code (Latest Code Status on File) Date Activated Date Inactivated Comments 08/02/2021 9:31 PM 08/03/2021 10:19 PM * Full Code Date Activated Date Inactivated Comments 09/20/2019 9:06 AM 09/20/2019 3:33 PM * Full Code Date Activated Date Inactivated Comments 09/20/2019 9:05 AM 09/20/2019 9:06 AM Care Teams Emergency Dispatcher Relationship Specialty Start Date End Date Bailey Campos PA [address] [place] [address] PCP - General Family Medicine 09/07/23 Waqas Valle MD Neurosurgery 04/28/17 Bart Perea MD [address] [place] [address] Urology 04/28/17 Riley Navarro MD [address] [place] [address] Dermatology 04/28/17 Kenji Escobar MD [address] [place] [address] [place] [address] Internal Medicine 04/28/17 Rian Hampton MD [address] [place] [address] [address] [place] [address] Referring Physician Ophthalmology 08/31/18 [place] [address] [place] [address] [place] [address] Consulting Physician Urology 08/03/21
--- OUTSIDE RECORDS SUMMARY | 2025-04-22 16:28 | XMS_ITS | Encounter Summary ---
Author Organization [facility] Address [address] [facility] [place] [address] Care Team Providers Care Cancer Registry Coordinator Name Role Phone Unavailable Primary Care Provider Unavailabl e Encounter Details Date Type Department Care Team (Late st Contact Info) Description 06/14/2024 Lab Requisition [facility] - DermPath Lab [address] 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 Gender Identity Not on file Sexual Orientation Not on file documented as of this encounter Plan of Treatment Not on file documented as of this encounter Procedures Procedure Name Priority Date/Time Associated Diagnosis Comments DERMATOPATHOLOGY Routine 06/12/2024 12:0 0 AM CDT documented in this encounter Results * DERMATOPATHOLOGY (06/12/2024 12:00 AM CDT) Case Report Dermatopathology Report Case: [id number] Authorizing Provider: Riley Navarro MD Collected: 06/12/2024 12:00 AM Ordering Location: [facility] - Received: 06/14/2024 01:52 PM DermPath Lab [...] characteristic determined by the Dermatopathology Laboratory at [facility], directed by Dr. Luis Mendoza. These tests need not be, and therefore are not, approved by the [place] Food and Drug Administration. The tests are used for clinical purposes. Billing Codes Specimen Charges Stain Charges 72772 02872 1 1 12:48 PM CDT DERMATOPATHOLOGY LABORATORY Embedded Images 12:48 PM CDT DERMATOPATHOLOGY LABORATORY Pathology/Cytology TISSUE SPECIMEN FROM SKIN / Unknown 06/12/2024 06/14/2024 1:52 PM CDT Miscellaneous samples (specimen) TISSUE SPECIMEN FROM SKIN / Unknown 06/12/2024 06/14/2024 1:52 PM CDT us Riley Navarro MD LAB - PATHOLOGY/CYTOLOGY ORD ERABLES Final Result DERMATOPATHOLOGY LABORATORY [facility] - Department of Dermatology [facility] Medicine [address] [place] [address], [address] [phone] documented in this encounter Visit Diagnoses Not on filedocumented in this encounter
--- OUTSIDE RECORDS SUMMARY | 2025-04-22 16:28 | XMS_ITS | Encounter Summary ---
Author Organization [facility] Address [address] [facility] [place] [address] Care Team Providers Care Waterway Traffic Checker Name Role Phone Unavailable Primary Care Provider Unavailabl e Encounter Details Date Type Department Care Team (Late st Contact Info) Description 10/04/2018 Lab Requisition [facility] Care DermPath Lab [address] [facility] [place] [address] Riley Navarro MD [address] [place] [address] Social History Tobacco Use Types Packs/Day Years Used Date Smoking Tobacco: Never Assessed Sex and Gender Information Value Date Recorded Sex Assigned at Not on file 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 Gender Identity Not on file Sexual Orientation Not on file documented as of this encounter Plan of Treatment Not on file documented as of this encounter Procedures Procedure Name Priority Date/Time Associated Diagnosis Comments DERMATOPATHOLOGY Routine 10/03/2018 12:0 0 AM WRITER PRODUCER documented in this encounter Results * DERMATOPATHOLOGY (10/03/2018 12:00 AM WRITER PRODUCER) Case Report Dermatopathology Report Case: [id number] Authorizing Provider: Riley Navarro MD Collected: 10/03/2018 12:00 AM Pathologist: Alexandria Mendoza MD Received: 10/04/2018 02:06 PM Specimen: Skin, left post neck 8 2:39 PM WRITER PRODUCER DERMATOPATHOLOGY LABORATORY Final Diagnosis Specimen A. 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 8 2:39 PM WRITER PRODUCER DERMATOPATHOLOGY LABORATORY Gross Description Specimen A: Received is one formalin filled container labeled with the patient's name and designated left post neck. The specimen consists of a shave biopsy measuring [id number], bisected. Jar 0. 8 2:39 PM [facility] DERMATOPATHOLOGY LABORATORY Microscopic Description Specimen A. SKIN, left post neck: This dome-shaped lesion contains dilated blood vessels, coarse collagen bundles, and stellate fibroblasts. 8 2:39 PM [facility] DERMATOPATHOLOGY LABORATORY Disclaimer An external and internal positive and negative controls are appropriate for the histochemical, immunohistochemical and immunofluorescence stain(s) in this case (if any), except where stated explicitly. The performance characteristics of the stain(s) cited in this report were developed and its performance characteristic determined by the Dermatopathology Laboratory at [facility]. These tests need not be, and therefore are not, approved by the [place] Food and Drug Administration. The tests are used for clinical purposes. Billing Codes Specimen Charges Stain Charges 79576 1 8 2:39 PM [facility] DERMATOPATHOLOGY LABORATORY Embedded Images 8 2:39 PM [facility] DERMATOPATHOLOGY LABORATORY Pathology/Cytolog y TISSUE SPECIMEN FROM SKIN / Unknown 10/03/2018 10/04/2018 2:06 PM WRITER PRODUCER Riley Navarro MD LAB - PATHOLOGY/CYTOLOGY ORD ERABLES Final Result DERMATOPATHOLOGY LABORATORY [facility] - Department of Dermatology [address] [place] [address], [address] [place] [address], [facility] [phone] documented in this encounter Visit Diagnoses Not on filedocumented in this encounter
--- OUTSIDE RECORDS SUMMARY | 2025-04-22 16:28 | XMS_ITS | Referral Summary ---
Author Organization [facility] Address [address] [place] [address] Care Team Providers Care Automotive Shop Foreman Name Role Phone Waqas Valle MD Unavailable [phone] Batr Perea MD Unavailable [phone] Riley Navarro MD Unavailable [phone] Kenji Escobar MD Unavailable + Rian [place] MD Unavailable [phone] Piotr Alaniz MD Unavailable [phone] Bailey Campos Primary Care Provider [phone] Allergies Active Allergy Reactions Criticality Noted Date [...] on file Legal Sex Male 1:22 AM SOLE TRIMMER Gender Identity Not on file Sexual Orientation Not on file 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 on file Not on file Not on file Last Filed Vital Signs Vital Sign Reading Time Taken Comments Blood Pressure 124/70 10/19/2023 9:37 AM SOLE TRIMMER Pulse 56 10/19/2023 9:37 AM SOLE TRIMMER Temperature 36.2 C (97.1 F) 06/24/2022 3:38 PM CDT Respiratory Rate 12 06/24/2022 3:38 PM CDT Oxygen Saturation 96% 06/24/2022 3:38 PM CDT Inhaled Oxygen Concentration - - Weight 89.2 kg (196 lb 9.6 oz) 10/19/2023 9:37 A M SOLE TRIMMER Height 167.6 cm (5' 6) 10/19/2023 9:37 AM SOLE TRIMMER Body Mass Index 31.73 10/19/2023 9:37 AM SOLE TRIMMER Plan of Treatment Not on file Medical Devices Implanted Type Area Punch Molder Device Identifier Shelf Expiration Date Model / Serial / Lot Screw Screw N/A: Back Description:Rods and screws in neck and in lower back Procedures Procedure Name Priority Date/Time Associated Diagnosis Comments CT ABDOMEN W WO CONTRAST Schedule Routine, Read Routine (OP Routine) 10/20/2021 2:36 PM SOLE TRIMMER Malignant neoplasm of right kidney, except renal pelvis (HCC) COLONOSCOPY REPORT 09/07/2017 HEPATITIS C ANTIBODY Routine 04/11/2017 1:33 PM CDT from Last 3 Months or Most Recently Relevant to Health Maintenance Results * CT Abdomen W WO Contrast (10/20/2021 2:36 PM SOLE TRIMMER) Anatomical Region Laterality Modality Body N/A Computed Tomogra phy 10/21/2021 9:39 AM SOLE TRIMMER Narrative 10/21/2021 9:47 AM SOLE TRIMMER EXAM DESCRIPTION: CT ABDOMEN W WO CONTRAST [...] Dylan Barnes M.D. KN: DELVIN Report ID: [id number] Reading Location: [id number] Procedure Note Dylan Barnes MD - 10/21/2021 [...] Dylan Barnes M.D. KN: DELVIN Report ID: [id number] Reading Location: [place] [address] Piotr Alaniz MD IMG CT PROCEDURES Final [...] Site ID: [place] Name: Nannette Seth Address: [address] [place] [address] [place] [address] Director: Miguel Gordillo D.O., MPH Yesica Palacios MD LAB MICROBIOLOGY - GENERAL ORDERABLES Final Result [facility] [place] Guerra from Last 3 Months or Most Recently Relevant to Health Maintenance Insurance [facility] MEDICARE ADVANTAGE UHC MEDICARE ADVANTAGE [facility] MEDICARE [facility] MEDICARE [facility] MEDICARE ADVANTAGE Advance Directives For more information, please contact: [phone] Documents on File Type Date Recorded Patient Automat Car Attendant Expl anation ADVANCE DIRECTIVE 09/18/2020 DNR * Full Code (Latest Code Status on File) Date Activated Date Inactivated Comments 08/02/2021 9:31 PM 08/03/2021 10:19 PM * Full Code Date Activated Date Inactivated Comments 09/20/2019 9:06 AM 09/20/2019 3:33 PM * Full Code Date Activated Date Inactivated Comments 09/20/2019 9:05 AM 09/20/2019 9:06 AM Care Teams Automotive Shop Foreman Relationship Specialty Start Date End Date Bailey Campos PA [address] [place] [address] PCP - General Family Medicine 09/07/23 aWqas Valle MD Neurosurgery 04/28/17 Bart Perea MD [address] [place] [address] Urology 04/28/17 Riley Navarro MD [address] [place] [address] Dermatology 04/28/17 Kenji Escobar MD [address] [facility] [address] [place] [address] Internal Medicine 04/28/17 Rian [place] MD [address] [facility] [address] [place] [address] Referring Physician Ophthalmology 08/31/18 [place] [address] [place] [address] Consulting Physician Urology 08/03/21
--- OUTSIDE RECORDS SUMMARY | 2025-04-22 16:28 | XMS_ITS | Clinical Summary ---
Author Organization [facility] Address [address] [facility] [address] [place] [address] Care Team Providers Care Utilization Review Coordinator Name Role Phone Unavailable Primary Care Provider Unavailabl e Source Comments [facility],non-owned Affiliates and Associated Physician Practices is amultiple site organization consisting of ambulatory clinics and hospital sitesin [place], [place], [place] and [place]. This disclosure is being madepursuant to the Care Everywhere program and may not contain all information available regarding this patient. 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
--- OUTSIDE RECORDS SUMMARY | 2025-04-22 16:28 | XMS_ITS | Encounter Summary ---
Author Organization [facility] Address [address] [facility] [address] [place] [address] Care Team Providers Care Talent Acquisition Operations Manager Name Role Phone Yesica Palacios MD Primary Care Provider [phone] Yesica Palacios MD Primary Care Provider [phone] Yesica Palacios MD Primary Care Provider [phone] Waqas Valle MD Unavailable [phone] Bart Perea MD Unavailable [phone] Riley Navarro MD Unavailable [phone] Kenji Escobar MD Unavailable + Rian [place] MD Unavailable [phone] Piotr Alaniz MD Unavailable [phone] Bailey Campos Primary Care Provider [phone] Encounter Details Date Type Department Care Team (Late st Contact Info) Description 11/14/2016 Orders Only [facility] Provider, MD Herbie [address] [place] [address] Social History Tobacco Use Types Packs/Day Years Used Date Smoking Tobacco: Never Assessed Sex and Gender Information Value Date Recorded Sex Assigned at Not on file 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 Gender Identity Not on file Sexual [...] on filedocumented in this encounter Care Teams Talent Acquisition Operations Manager Relationship Specialty Start Date End Date Yesica Palacios MD PCP - General 02/03/17 09/06/23 Yesica Palacios MD PCP - General 01/09/17 02/02/17 Yesica Palacios MD PCP - General 05/05/15 01/08/17 Bailey Campos PA [address] [place], [place] [id number] PCP - General Family Medicine 09/07/23 Waqas Valle MD Neurosurgery 04/28/17 Bart Perea MD [address] [address] Urology 04/28/17 Riley Navarro MD [address] [place] [address] Dermatology 04/28/17 Kenji Escobar MD [address] [place] [address] [place] [address] Internal Medicine 04/28/17 Rian [place] MD [address] [place] [address] [place] [address] Referring Physician Ophthalmology 08/31/18 [place] [address] [address] [place] [address] Consulting Physician Urology 08/03/21 documented as of this encounter
--- OUTSIDE RECORDS SUMMARY | 2025-04-22 16:28 | XMS_ITS | Encounter Summary ---
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 Gender Identity Not on file Sexual Orientation Not on file documented as of this encounter Plan of Treatment Not on file documented as of this encounter Procedures Procedure Name Priority Date/Time Associated Diagnosis Comments DERMATOPATHOLOGY Routine 07/26/2022 12:0 0 AM CDT documented in this encounter Results * DERMATOPATHOLOGY (07/26/2022 12:00 AM CDT) Case Report Dermatopathology Report Case: [id number] Authorizing Provider: Riley Navarro MD Collected: 07/26/2022 12:00 AM Ordering Location: [facility] DermPath Lab Received: 07/27/2022 04:33 PM Pathologist: [...] determined by the Dermatopathology Laboratory at [facility], directed by Dr. Luis Mendoza. These tests need not be, and therefore are not, approved by the [place] Food and Drug Administration. The tests are used for clinical purposes. Billing Codes Specimen Charges Stain Charges 48458 1 35628 1 2 3:56 PM CDT DERMATOPATHOLOGY LABORATORY Embedded Images 2 3:56 PM CDT DERMATOPATHOLOGY LABORATORY Pathology/Cytolog y TISSUE SPECIMEN FROM SKIN / Unknown 07/26/2022 07/27/2022 4:33 PM CDT Riley Navarro MD LAB - PATHOLOGY/CYTOLOGY ORD ERABLES Final Result DERMATOPATHOLOGY LABORATORY [facility] - Department of Dermatology [address], [address] [phone] documented in this encounter Visit Diagnoses Not on filedocumented in this encounter
[2025-04-22 16:37] LABS: Alanine Aminotransferase 20 U/L (6-50); Alkaline Phosphatase 71 U/L (38-126); Anion Gap 9 mmol/L (4-12); Aspartate Amino Transferase 28 U/L (17-59); Bilirubin,Total 0.7 mg/dL (0.2-1.3); Blood Urea Nitrogen 17 mg/dL (9-20); Calcium 9.2 mg/dL (8.4-10.2); Carbon Dioxide 27 mmol/L (22-30); Chloride 104 mmol/L (98-107); Cholesterol 163 mg/dL (0-200); Estimated Glomerular Filt Rate > 60; Glucose 94 mg/dL (65-110); HDL Direct 37 mg/dL; Sodium 140 mmol/L (137-145); Total Protein 7.4 g/dL (6.3-8.2); Triglycerides 155 mg/dL (<150)
[2025-04-22 16:49] LABS: LDL Cholesterol Direct 90 mg/dL
[2025-04-22 17:07] LABS: Prostate Specific Antigen 0.4 ng/mL (< OR = 4.0)
== END 2025-04-22 15:37 | disposition home or self-care (01) ==
PROVIDERS: PCP Family Medicine; Visit Provider Student in an Organized Health Care Education/Training Program
DX: E78.1 Pure hyperglyceridemia (principal); I10 Essential (primary) hypertension; Z12.5 Encounter for screening for malignant neoplasm of prostate; R53.83 Other fatigue; M17.12 Unilateral primary osteoarthritis, left knee
CPT/HCPCS: 36415; 73560; 80053; 80061; 84153; 85025; G0103

== ENCOUNTER 2025-05-01 09:48 | Outpatient (CLI) | payer MEDICARE, SELFPAY ==
--- NOTE | ~2025-05-01 | CT_ITS ---
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 Reformatted cor onal, sagittal, and 3-D MIP images were obtained. 100 cc of Optiray 350 were used for the study. Auto matic exposure control was used for this study. COMPARISON: 04/08/2024 FINDINGS: EXAM QUALITY: Adequate visualization of the pulmonary arteries to the lobar level. PULMONARY ARTERIAL VASCULATURE: Linear filling defect in the right upper lobar pulmonary artery, conc erning for acute pulmonary embolism. No other pulmonary embolus seen. VISUALIZED LOWER NECK: Thyroid gland appears normal. No supraclavicular lymphadenopathy. AIRWAYS: Patent centrally. LUNGS and PLEURA: No suspicious pulmonary nodules. No pleural effusions. No focal consolidation or gr ound glass opacity.No pleural effusion. MEDIASTINUM and BRENDA: No hilar or mediastinal lymphadenopathy. No mediastinal mass is seen. Esophagus appears normal. HEART AND PERICARDIUM: Cardiac chambers are normal in size. No pericardial fluid or thickening is pre sent. VASCULATURE: Mild interval decrease in size of previously seen ectatic ascending aorta, measuring 4.2 x 4.0 cm on current examination (4.4 x 4.1 cm previously) CHEST WALL: No supraclavicular or axillary lymphadenopathy. MUSCULOSKELETAL: No acute osseous abnormality. UPPER ABDOMEN: Status post cholecystectomy. The remaining visualized upper abdomen is grossly unremar kable. IMPRESSION: 1. Incidentally seen linear filling defect in the right upper lobar pulmonary artery, concerning for acute pulmonary embolism. No right heart strain. 2. Interval decrease to grossly unchanged ectatic ascending aorta. Reviewed, dictated and finalized at location A.
== END 2025-05-01 09:49 | disposition home or self-care (01) ==
PROVIDERS: PCP Family Medicine; Visit Provider Thoracic Surgery (Cardiothoracic Vascular Surgery)
DX: I71.21 Aneurysm of the ascending aorta, without rupture (principal)
CPT/HCPCS: 71275; Q9967

== ENCOUNTER 2025-07-24 13:00 | Outpatient (RCR) | payer MEDICARE, SELFPAY ==
--- NOTE | 2025-04-25 14:33 | OPREHPOC ---
Outpatient Therapy Plan of Care This is a Multidisciplinary Plan of Care that may contain components documented by all disciplines (PT, OT, and ST.) PT Problem 1 PT Problem #1 Knowledge Deficit PT Goal 1 Goal / Goal Update *independent with HEP Target Visit 10 PT Problem 2 PT Problem #2 Pain PT Goal 1 Goal / Goal Update * pt report pain at worst in back of 03/15 Target Visit 10 PT Problem 3 PT Problem #3 Impaired Strength PT Goal 1 Goal / Goal Update increase trunk and LE strength, to improve mobility skills and safety, to prevent falls: 1* pt transfer sit to stand with use of 1 UE and walker in front of him to reach for support 2* pt static stand for 20 seconds without UE support 3 *increase strength of R LE to 4-/5 4* increase strength of L LE to 4-/5 Target Visit 10 PT Problem 4 PT Problem #4 Impaired Functional Mobility PT Goal 1 Goal / Goal Update 1* pt ambulate with wheeled walker 50' independent on level surface Target Visit 10
--- NOTE | 2025-04-25 14:33 | PTOPEVAL1 ---
Assessment and note entered by Obdulia Velazco, PT Evaluation Information Assessment Status Evaluation ICD-10 Condition Codes (PT) Pain in low back M54.50,Repeated falls R29.6, Difficulty Walking R26.2,Abnormalities of gait and mobility R26.9,Weakness R53.1 Onset March 2025 Subjective Information chronic issues with low back and neck pain; more problems in the past month with leg weakness, not able to walk as well- only taking a few steps with the walker and only when someone with him; cannot make legs do what I want them to do in the past 6 months have had 6 falls; fell last week with L knee pain, went to dr, xray was negative; MRI- lumbar report severe degenerative spondylosis L 2-3 with compression; severe foraminal narrowing activity: use of wheeled walker, w/c at home for mobility; live with ; no stairs; before this weakness---able to walk out in community with ; decrease vision- does not drive; independent with bathing- use of grab bars and tub seat; independent with dressing; reports is not able to push the wheelchair into the house, so from the car, he crawls into the house and pulls up on the wheelchair to get to standing position. GOAL: be able to walk with the walker and not use the wheel chair any more; Reported Pain Level Pain Score 6: Self Report Additional Pain Score Comments pain range in the past week 2-8/10; radicular pain into R and L LE to posterior knee- intermittent, increase with standing up increase pain: report standing 1-2 minutes decrease pain: sit, rest, some bed exercises from previous therapy have prescription pain meds, have not been taking; do take gabapentin and muscle relaxer for sleeping; Assessment PT Clinical Summary Juan has the diagnosis of lumbar radiculopathy, leg weakness, falls and decreased mobility. Radicular pain is intermittent into both LE to knees. His activity level and walking has decreased in the past few months, using a wheel chair for mobility in his home. He fell last week and has L knee pain--x ray was negative. Self assessment with back index rating of 72% limitation in activity level. Recent MRI reports severe foraminal narrowing of lumbar and spondylosis with L 2-3 cord compression . He has a appt next week to follow up and get the results. With the evaluation: he has neurological issue of decreased motor control with both legs with active exercises and walking; he cannot stand without UE support on the walker; walking tolerance is 20' with wheeled walker due to leg pain and weakness; tightness of both hamstring muscles. Skilled PT services are indicated for therapeutic exercises to increase strength and mobility skills , for safety and modalities PRN for pain control and education for HEP. Plan of Care Interventions Gait Training,Hot Pack/Cold Pack,Manual Therapy, Neuro Re-education,Patient/Caregiver Education, Therapeutic Activities,Therapeutic Exercise Other Interventions NO stim due to renal cancer PT Services Indicated Yes Treatment Frequency and 1-2x/wk for 10 visits Duration These treatments will address the objective and functional deficits as defined above. The patient will be advanced safely and appropriately in order for the patient to progress towards his/her prior level of function. Additional exercises will be introduced and as well as a comprehensive home exercise program upon discharge, if needed, ?to ensure carryover of functional gains achieved in the clinic. This treatment plan has been reviewed and agreement upon by the patient.
--- NOTE | 2025-06-27 11:59 | OPREHPOC ---
Outpatient Therapy Plan of Care This is a Multidisciplinary Plan of Care that may contain components documented by all disciplines (PT, OT, and ST.) PT Problem 1 PT Problem #1 Knowledge Deficit PT Goal 1 Goal / Goal Update *independent with HEP 06-27-25 progress met goal; continue to progress HEP and education Target Visit 14 PT Problem 2 PT Problem #2 Pain PT Goal 1 Goal / Goal Update * pt report pain at worst in back of 03/15 06-27-25 progress met goal Target Visit 10 Progress Met PT Goal 2 Goal / Goal Update *pain rating of /10 with increased activity level Target Visit 16 PT Problem 3 PT Problem #3 Impaired Strength PT Goal 1 Goal / Goal Update increase trunk and LE strength, to improve mobility skills and safety, to prevent falls: 1* pt transfer sit to stand with use of 1 UE and walker in front of him to reach for support 2* pt static stand for 20 seconds without UE support 3 *increase strength of R LE to 4-/5 4* increase strength of L LE to 4-/5 06-27-25 progress met goals Target Visit 10 Progress Met PT Goal 2 Goal / Goal Update bilateral hip abduction strength of 4/5 Target Visit 14 PT Problem 4 PT Problem #4 Impaired Functional Mobility PT Goal 1 Goal / Goal Update 1* pt ambulate with wheeled walker 50' independent on level surface 06-27-25 progress met goal Target Visit 10 Progress Met PT Goal 2 Goal / Goal Update 1* 2 minute walking test distance of 350' to improve mobility 2* maximum walking distance of 425' Target Visit 14
--- NOTE | 2025-06-27 11:59 | PTOPPROG ---
Assessment and note entered by Obdulia Velazco, PT Assessment Status Progress ICD-10 Condition Codes (PT) Pain in low back M54.50,Repeated falls R29.6, Difficulty Walking R26.2,Abnormalities of gait and mobility R26.9,Weakness R53.1 Onset March 2025 Subjective Information since coming for therapy, walking with the walker most of the time, do use wheelchair when first get up; less pain in legs, but have pain and cramp in R calf; doing the exercises at home; has a follow up appointment with next week, wants to talk to her and see if he needs more therapy or not. Assessment PT Clinical Summary Juan has received 8 PT sessions, from April 25 to today. With today's assessment he has improved in all areas--pain rating from 0-2/10, without any radicular pain into LE's; self assessment back index rating of 54% limitation in activity level; 2 minute walking test distance, with wheeled walker 285', which is his maximum walking tolerance- report fatigue and need to sit down at the 2 minute ronnie; static standing, without UE support x 60 seconds; sit/stand without use of UE 's; increase strength of R and L LE with improved motor control; continues to have weakness over bilateral hip abduction; education completed for HEP. The goals were achieved. Continue PT for further strengthening, gait and balance skills. Plan of Care Interventions Gait Training,Hot Pack/Cold Pack,Manual Therapy, Neuro Re-education,Patient/Caregiver Education, Therapeutic Activities,Therapeutic Exercise Other Interventions NO stim due to renal cancer PT Services Indicated Yes Treatment Frequency and 1-2x/wk for 6 visits Duration These treatments will address the objective and functional deficits as defined above. The patient will be advanced safely and appropriately in order for the patient to progress towards his/her prior level of function. Additional exercises will be introduced and as well as a comprehensive home exercise program upon discharge, if needed, ?to ensure carryover of functional gains achieved in the clinic. This treatment plan has been reviewed and agreement upon by the patient.
== END 2025-07-24 23:59 | disposition home or self-care (01) ==
LOC: ANHPT 13:00
PROVIDERS: PCP Family Medicine; Visit Provider Neurological Surgery
DX: M54.16 Radiculopathy, lumbar region (principal); Z98.1 Arthrodesis status
CPT/HCPCS: 97110; 97140; 97161; 97530

== ENCOUNTER 2025-07-24 14:08 | Outpatient (CLI) | payer MEDICARE, SELFPAY ==
--- OUTSIDE RECORDS SUMMARY | 2025-07-24 14:13 | XMS_ITS | Clinical Summary ---
Author Organization [facility] Address [address] [place] [address] Care Team Providers Care Centrifugal Extractor Operator Name Role Phone Waqas Valle MD Unavailable [phone] Bart Perea MD Unavailable [phone] Riley Navarro MD Unavailable [phone] Kenji Escobar MD Unavailable + Rian Hampton MD Unavailable [phone] Piotr Alaniz MD Unavailable [phone] Bailey Campos Primary Care Provider [phone] Allergies Active Allergy Reactions Criticality Noted Date [...] 07/07/2021 - 08/05/[address] 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 on file Not on file Not on file Obstetrics History Last Filed Vital Signs Vital Sign Reading Time Taken Comments Blood Pressure 124/70 10/19/2023 9:37 AM SEASONAL WAREHOUSE ASSOCIATE Pulse 56 10/19/2023 9:37 AM SEASONAL WAREHOUSE ASSOCIATE Temperature 36.2 C (97.1 F) 06/24/2022 3:38 PM CDT Respiratory Rate 12 06/24/2022 3:38 PM CDT Oxygen Saturation 96% 06/24/2022 3:38 PM CDT Inhaled Oxygen Concentration - - Weight 89.2 kg (196 lb 9.6 oz) 10/19/2023 9:37 A M SEASONAL WAREHOUSE ASSOCIATE Height 167.6 cm (5' 6) 10/19/2023 9:37 AM SEASONAL WAREHOUSE ASSOCIATE Body Mass Index 31.73 10/19/2023 9:37 AM SEASONAL WAREHOUSE ASSOCIATE Plan of Treatment Health Maintenance Due Date Last Done Comments Hepatitis B Screening 1963 Lung Cancer Screening 04/12/2020 04/12/2019 DTaP/Tdap/Td Vaccine (2 - Td or Tdap) 11/04/2021 11/04/2011 Depression Screening 10/13/2022 10/13/2021, 09/18/2020, 08/31/2018 Fall Risk Assessment 10/13/2022 10/13/2021, 08/03/2021, 09/18/2020, Additional history exists Well Visit 65+ 10/13/2022 10/13/2021, 09/06, 08/31/2018 Covid-19 Vaccine (2024-2 6 season) 2025 08/19/2021, 01/24/2021, 01/01/2021 Influenza Vaccine (#1) 2025 , 08/19/2021, 08/14/2020, Additional history exists Pneumococcal vaccine [...] Completed 10/20/2021 Medical Devices Implanted Type Area Salesperson Trail[employer] Device Identifier Shelf Expiration Date Model / Serial / Lot Screw Screw N/A: Back Description:Rods and screws in neck and in lower back Procedures Procedure Name Priority Date/Time Associated Diagnosis Comments CT ABDOMEN W WO CONTRAST Schedule Routine, Read Routine (OP Routine) 10/20/2021 2:36 PM SEASONAL WAREHOUSE ASSOCIATE Malignant neoplasm of right kidney, except renal pelvis (HCC) COLONOSCOPY REPORT 09/07/2017 HEPATITIS C ANTIBODY Routine 04/11/2017 1:33 PM CDT from Last 3 Months or Most Recently Relevant to Health Maintenance Results * CT Abdomen W WO Contrast (10/20/2021 2:36 PM SEASONAL WAREHOUSE ASSOCIATE) Anatomical Region Laterality Modality Body N/A Computed Tomogra phy 10/21/2021 9:39 AM SEASONAL WAREHOUSE ASSOCIATE Narrative 10/21/2021 9:47 AM SEASONAL WAREHOUSE ASSOCIATE EXAM DESCRIPTION: CT ABDOMEN W WO CONTRAST [...] Dylan Barnes M.D. KN: DELVIN Report ID: [id number] Reading Location: [id number] Procedure Note Dylan Barnes MD - 10/21/2021 [...] Dylan Barnes M.D. KN: DELVIN Report ID: [id number] Reading Location: [id number] Piotr Alaniz MD IMG CT PROCEDURES Final [...] Agency Comment Performing Organization Information: Site ID: [id number] Name: [facility] Address: [address] [address] Director: Miguel Gordillo D.O., MPH us Yesica Palacios MD LAB MICROBIOLOGY - GENERAL ORDERABLES Final Result [facility] [place] Gu[facility] from Last 3 Months or Most Recently Relevant to Health Maintenance Insurance UHC MEDICARE ADVANTAGE Member Subscriber Plan / Payer (Ef fective 2016-Present) Name:MARIANA CHAVARRIA Relation to Subscriber:Self Name:Mariana Chavarria Payer ID:[id number] (NAIC) Type:[facility] MED[facility] Address: [place] [id number] UHC MEDICARE ADVANTAGE MEDICARE [facility] MEDICARE [facility] MEDICARE ADVANTAGE Advance Directives For more information, please contact: [phone] Documents on File Type Date Recorded Patient President Celebrity Acquistion Expl anation ADVANCE DIRECTIVE 09/18/2020 DNR * Full Code (Latest Code Status on File) Date Activated Date Inactivated Comments 08/02/2021 9:31 PM 08/03/2021 10:19 PM * Full Code Date Activated Date Inactivated Comments 09/20/2019 9:06 AM 09/20/2019 3:33 PM * Full Code Date Activated Date Inactivated Comments 09/20/2019 9:05 AM 09/20/2019 9:06 AM Care Teams Centrifugal Extractor Operator Relationship Specialty Start Date End Date Bailey Campos PA [address] [place] [address] PCP - General Family Medicine 09/07/23 Waqas Valle MD Neurosurgery 04/28/17 Bart Perea MD [address] [place] [address] Urology 04/28/17 Riley Navarro MD [address] [address] Dermatology 04/28/17 Kenji Escobar MD [address] [place] [address] [place] [address] Internal Medicine 04/28/17 Rian Hampton MD [address] [place] [address] [place] [address] Referring Physician Ophthalmology 08/31/18 [place] [address] [place] [address] [place] [address] Consulting Physician Urology 08/03/21
--- OUTSIDE RECORDS SUMMARY | 2025-07-24 14:13 | XMS_ITS | Encounter Summary ---
Author Organization [facility] Address [address] [place] [address] Care Team Providers Care Instructor Tap Dancing Name Role Phone Yesica Palacios MD Primary Care Provider [phone] Yesica Palacios MD Primary Care Provider + [phone] Yesica Palacios MD Primary Care Provider [phone] Waqas Valle MD Unavailable [phone] Bart Perea MD Unavailable [phone] Riley Navarro MD Unavailable [phone] Kenji Escobar MD Unavailable + Rian Hampton MD Unavailable [phone] Piotr Alaniz MD Unavailable [phone] Bailey Campos Primary Care Provider [phone] Encounter Details Date Type Department Care Team (Late st Contact Info) Description 11/14/2016 Orders Only [facility] Provider, MD Herbie [address] [place] [address] Social History Tobacco Use Types Packs/Day Years Used Date Smoking Tobacco: Never Assessed Sex and Gender Information Value Date Recorded Sex Assigned at Not on file 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 Gender Identity Not on file Sexual [...] on filedocumented in this encounter Care Teams Instructor Tap Dancing Relationship Specialty Start Date End Date Yesica Palacios MD PCP - General 02/03/17 09/06/23 Yesica Palacios MD PCP - General 01/09/17 02/02/17 Yesica Palacios MD PCP - General 05/05/15 01/08/17 Bailey Campos PA [address] [place] [address] PCP - General Family Medicine 09/07/23 Waqas Valle MD Neurosurgery 04/28/17 Bart Perea MD [address] [place] [address] Urology 04/28/17 Riley Navarro MD [address] [place] [address] Dermatology 04/28/17 Kenji Escobar MD [address] [place] [address] [address] [place] [address] Internal Medicine 04/28/17 Rian [place] MD [address] [facility] [address] [place] [address] Referring Physician Ophthalmology 08/31/18 [place] [address] [place] [address] [place] [address] Consulting Physician Urology 08/03/21 documented as of this encounter
--- OUTSIDE RECORDS SUMMARY | 2025-07-24 14:13 | XMS_ITS | Encounter Summary ---
Author Organization [facility] Address [address] [facility] [place] [address] Care Team Providers Care Line And Frame Poler Name Role Phone Unavailable Primary Care Provider Unavailabl e Encounter Details Date Type Department Care Team (Late st Contact Info) Description 06/14/2024 Lab Requisition [facility] - DermPath Lab [address] [facility] [place] [address] Riley Navarro MD [address] [place] [address] Social History Tobacco Use Types Packs/Day Years Used Date Smoking Tobacco: Never Assessed Sex and Gender Information Value Date Recorded Sex Assigned at Not on file 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] determined by the Dermatopathology Laboratory at [facility], directed by Dr. Luis Mendoza. These tests need not be, and therefore are not, approved by the [place] Food and Drug Administration. The tests are used for clinical purposes. Billing Codes Specimen Charges Stain Charges 06836 16829 1 1 12:48 PM CDT DERMATOPATHOLOGY LABORATORY Embedded Images 12:48 PM CDT DERMATOPATHOLOGY LABORATORY Pathology/Cytology TISSUE SPECIMEN FROM SKIN / Unknown 06/12/2024 06/14/2024 1:52 PM CDT Miscellaneous samples (specimen) TISSUE SPECIMEN FROM SKIN / Unknown 06/12/2024 06/14/2024 1:52 PM CDT us Riley Navarro MD LAB - PATHOLOGY/CYTOLOGY ORD ERABLES Final Result DERMATOPATHOLOGY LABORATORY [facility] - Department of Dermatology [facility] [address] [place] [address], [address] [phone] documented in this encounter Visit Diagnoses Not on filedocumented in this encounter
--- OUTSIDE RECORDS SUMMARY | 2025-07-24 14:13 | XMS_ITS | Encounter Summary ---
Author Organization [facility] Address [address] [place] [address] Care Team Providers Care Master Deputy Sheriff Court Security Name Role Phone Unavailable Primary Care Provider Unavailabl e Encounter Details Date Type Department Care Team (Late st Contact Info) Description 10/04/2018 Lab Requisition [facility] Care DermPath Lab [address] [facility] [place] [address] Riley Navarro MD [address] [place] [address] Social History Tobacco Use Types Packs/Day Years Used Date Smoking Tobacco: Never Assessed Sex and Gender Information Value Date Recorded Sex Assigned at Not on file Legal Sex Male 6:22 PM STITCH WELDER Gender Identity Not on file Sexual Orientation Not on file documented as of this encounter Plan of Treatment Not on file documented as of this encounter Procedures Procedure Name Priority Date/Time Associated Diagnosis Comments DERMATOPATHOLOGY Routine 10/03/2018 12:0 0 AM STITCH WELDER documented in this encounter Results * DERMATOPATHOLOGY (10/03/2018 12:00 AM STITCH WELDER) Case Report Dermatopathology Report Case: [id number] Authorizing Provider: Riley Navarro MD Collected: 10/03/2018 12:00 AM Pathologist: Alexandria Mendoza MD Received: 10/04/2018 02:06 PM Specimen: Skin, left post neck 8 2:39 PM STITCH WELDER DERMATOPATHOLOGY LABORATORY Final Diagnosis Specimen A. SKIN, left post neck: FIBROMA (D21.9) 8 2:39 PM STITCH WELDER DERMATOPATHOLOGY LABORATORY at [address] STITCH WELDER Clinical History R/O dys nevus. 8 2:39 PM STITCH WELDER DERMATOPATHOLOGY LABORATORY Gross Description Specimen A: Received is one formalin filled container labeled with the patient's name and designated left post neck. The specimen consists of a shave biopsy measuring 2c4q2yp, bisected. Jar 0. 8 2:39 PM [facility] DERMATOPATHOLOGY LABORATORY Microscopic Description Specimen A. SKIN, left post neck: This dome-shaped lesion contains dilated blood vessels, coarse collagen bundles, and stellate fibroblasts. 8 2:39 PM [facility] DERMATOPATHOLOGY LABORATORY Disclaimer An external and internal positive and negative controls are appropriate for the histochemical, immunohistochemical and immunofluorescence stain(s) in this case (if any), except where stated explicitly. The performance characteristics of the stain(s) cited in this report were developed and its performance characteristic determined by the Dermatopathology Laboratory at [facility]. These tests need not be, and therefore are not, approved by the [place] Food and Drug Administration. The tests are used for clinical purposes. Billing Codes Specimen Charges Stain Charges [id number] 1 8 2:39 PM [facility] DERMATOPATHOLOGY LABORATORY Embedded Images 8 2:39 PM [facility] DERMATOPATHOLOGY LABORATORY Pathology/Cytolog y TISSUE SPECIMEN FROM SKIN / Unknown 10/03/2018 10/04/2018 2:06 PM STITCH WELDER Riley Navarro MD LAB - PATHOLOGY/CYTOLOGY ORD ERABLES Final Result DERMATOPATHOLOGY LABORATORY [facility] - Department of Dermatology [address] [place] [address], [address] [place] [address], [facility] [phone] documented in this encounter Visit Diagnoses Not on filedocumented in this encounter
--- OUTSIDE RECORDS SUMMARY | 2025-07-24 14:13 | XMS_ITS | Clinical Summary ---
Author Organization [facility] Address [address] [place] [address] Care Team Providers Care Call Specialist Name Role Phone Ani Das MD Primary Care Provider [phone] Allergies No known active allergies Medications albuterol sulfate HFA 108 (90 Base) MCG/ACT inhaler Inhale 2 puffs into the lungs every 6 (six) hours as needed for Wheezing. Active benzonatate (TESSALON) 200 MG capsule Take 200 mg by mouth 3 (three) times daily as needed for Cough. Active finasteride (PROSCAR) 5 MG tablet Take 5 mg by mouth daily. Active fluticasone propionate (FLONASE) 50 MCG/ACT nasal spray 1 spray by Nasal route daily. Active LORazepam (ATIVAN) 1 MG tablet Take 1 mg by mouth every 6 (six) hours as needed for Anxiety. Active melatonin 5 MG tablet Take 5 mg by mouth nightly as needed. Active montelukast (SINGULAIR) 10 MG tablet Take 10 mg by mouth nightly at bedtime. Active omeprazole (PRILOSEC) 20 MG capsule Take 20 mg by mouth daily. Active tamsulosin (FLOMAX) 0.4 MG Cap Take 0.4 mg by mouth daily. Active tiotropium (SPIRIVA RESPIMAT) 2.5 MCG/ACT inhaler (SPIRIVA RESPIMAT) Inhale 2 puffs into the lungs daily. Please provide assembled. Active tiZANidine (ZANAFLEX) 4 MG tablet Take 4 mg by mouth every 6 (six) hours as needed. Active traZODone (DESYREL) 50 MG tablet Take 50 mg by mouth nightly at bedtime. Active FLUoxetine (PROZAC) 20 MG tablet Take 1 tablet (20 mg total) by mouth daily. 4 Active triamcinolone (KENALOG) 0.1 % cream Apply topically 2 (two) times daily. 4 Active losartan (COZAAR) 25 MG tablet Take 1 tablet (25 mg total) by mouth daily. Active metoprolol tartrate (LOPRESSOR) 25 MG tablet Take 1 tablet (25 mg total) by mouth 2 (two) times daily. 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 Benign hypertension 09/18/2020 Episodic mood disorder 09/18/2020 Nodule of right lung 04/20/2019 Overview (04/12/2023): Multiple pulmonary nodules detected on screening low-dose chest CT April 15, 2019 1 year follow-up advise Ascending aortic aneurysm 04/17/2019 Overview (04/12/2023): 4.2 CM ASCENDING AORTIC ANEURYSM DETECTED ON low-dose chest CT lung cancer screening April 2019 [facility], Recheck in 12 months Dental disease 08/31/2018 Overview (04/12/2023): 5 broken teeth Exudative age-related macula r degeneration of both eyes with active choroidal neovascularization ([facility]) 08/31/2018 ED (erectile dysfunction) of organic origin 02/05 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 He states he was on prozac before and felt that it worked, better. Recommended the addition on counseling to help with anxiety, but patient declined. Will discuss medication regimen and changes with Dr. Palacios. Patient has upcoming visit next week with her. Cervical myelopathy ([facility]) 01/06/2017 Recurrent sinusitis 03/22/2014 Overview (04/12/2023): Chronic allergic rhinitis Insomnia, persistent 03/22/2014 Overview (04/12/2023): Insomnia, persistent Psoriasis 03/22/2014 Overview (04/12/2023): Psoriasis Hx of adenomatous colonic polyps 01/27/2014 Overview (04/12/2023): Adenomatous colon polyp Osteoarthritis of knee 07/24/2013 Overview (04/12/2023): DJD (degenerative joint disease) of knee COPD with asthma ([facility]) 07/07/2013 Encounters Date Type Department Care Team Description 05/13/2025 10:00 AM CDT Office Visit [facility], [address] [address] Cortes Grider MD Thoracic Aortic Aneurysm 05/13/2025 Travel 05/12/2025 Orders Only [facility], [address] [address] Cortes Grider MD from Last 3 Months Social History Tobacco Use Types Packs/Day Years Used Date Smoking Tobacco: Former Cigarettes Smokeless Tobacco: Never Tobacco Cessation:Counseling Given: Not Answered Alcohol Use Standard Drinks/Week Comments Yes 0 (1 standard drink = 0.6 oz pur e alcohol) Sex and Gender Information Value Date Recorded Sex Assigned at Not on file Legal Sex Male 10:50 AM 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 Gender Identity Not on file Sexual Orientation Not on file Last Filed Vital Signs Vital Sign Reading Time Taken Comments Blood Pressure 128/70 05/13/2025 9:42 AM CDT Pulse 66 05/13/2025 9:42 AM CDT Temperature 36.7 C (98.1 F) 05/13/2025 9:42 AM CDT Respiratory Rate 18 05/13/2025 9:42 AM CDT Oxygen Saturation 97% 05/13/2025 9:42 AM CDT Inhaled Oxygen Concentration - - Weight 79.4 kg (175 lb) 05/13/2025 9:42 AM CDT Height 167.6 cm (5' 6) 05/13/2025 9:42 AM CDT Body Mass Index 28.25 05/13/2025 9:42 AM CDT Plan of Treatment Upcoming Encounters Date Type Department Care Team (Late st Contact Info) Description 05/19/2026 11:00 AM CDT Office Visit [facility] [address] [place], [place] [id number] Cortes Grider MD [address] [place], [place] [id number] Health Maintenance Due Date Last Done Comments Hepatitis C 1963 Annual Medicare Wellness Visit 2010 RSV Immunization or 60+ Years (1 - 1-dose 75+ series) 2020 DTaP, Tdap and Td Vaccines ( 2 - Td or Tdap) 11/04/2021 11/04/2011 COVID-19 Vaccine (2024-2 6 season) 2025 08/19/2021, 01/24/2021, 01/01/2021 Pneumococcal Vaccine: 50+ Years Completed 05/31/2016, 07/24/2013 Zoster Vaccines Completed 10/18/2019, 08/16/2019 Meningococcal B Vaccine Aged Out No l onger eligible based on patient's age to complete this topic Meningococcal Vaccine Aged Out No sandra lauren eligible based on patient's age to complete this topic RSV Immunizations Under 20 Months Aged Out No longer eligible b ased on patient's age to complete this topic Procedures Procedure Name Priority Date/Time Associated Diagnosis Comments CTA CHEST Routine 05/01/2025 Aneurysm of ascending aorta without rupture from Last 3 Months Results * CTA CHEST (05/01/2025) Anatomical Region Laterality Modality Chest Computed Tomogra phy Cortes Grider MD CT Final Result from Last 3 Months Insurance [place] [id number] [employer] Care Teams Call Specialist Relationship Specialty Start Date End Date Ani Das MD [address] [place] [address] PCP - General FAMILY PRACTICE 10/25/22
--- OUTSIDE RECORDS SUMMARY | 2025-07-24 14:13 | XMS_ITS | Clinical Summary ---
Author Organization [facility] Address [address] [place] [address] Care Team Providers Care Healthcare Interpreter Name Role Phone Unavailable Primary Care Provider Unavailabl e Source Comments [facility],non-owned Affiliates and Associated Physician Practices is amultiple site organization consisting of ambulatory clinics and hospital sitesin [place], [place], [place] and [place]. This disclosure is being madepursuant to the Care Everywhere program and may not contain all information available regarding this patient. 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
--- OUTSIDE RECORDS SUMMARY | 2025-07-24 14:13 | XMS_ITS | Encounter Summary ---
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 Phone Unavailable Primary Care Provider Unavailabl e Encounter Details Date Type Department Care Team (Late st Contact Info) Description 07/27/2022 Lab Requisition [facility] [address] [place] [address] Riley Navarro MD [address] [place] [address] Social History Tobacco Use Types Packs/Day Years Used Date Smoking Tobacco: Never Assessed Sex and Gender Information Value Date Recorded Sex Assigned at Not on file 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 Gender Identity Not on file Sexual Orientation Not on file documented as of this encounter Plan of Treatment Not on file documented as of this encounter Procedures Procedure Name Priority Date/Time Associated Diagnosis Comments DERMATOPATHOLOGY Routine 07/26/2022 12:0 0 AM CDT documented in this encounter Results * DERMATOPATHOLOGY (07/26/2022 12:00 AM CDT) Case Report Dermatopathology Report Case: [id number] Authorizing Provider: Riley Navarro MD Collected: 07/26/2022 12:00 AM Ordering Location: [facility] Received: 07/27/2022 04:33 PM [...] characteristic determined by the Dermatopathology Laboratory at [facility], directed by Dr. Luis Mendoza. These tests need not be, and therefore are not, approved by the [place] Food and Drug Administration. The tests are used for clinical purposes. Billing Codes Specimen Charges Stain Charges 98647 1 28777 1 2 3:56 PM CDT DERMATOPATHOLOGY LABORATORY Embedded Images 2 3:56 PM CDT DERMATOPATHOLOGY LABORATORY Pathology/Cytolog y TISSUE SPECIMEN FROM SKIN / Unknown 07/26/2022 07/27/2022 4:33 PM CDT Riley Navarro MD LAB - PATHOLOGY/CYTOLOGY ORD ERABLES Final Result DERMATOPATHOLOGY LABORATORY [facility] - Department of Dermatology [address], [address] [phone] documented in this encounter Visit Diagnoses Not on filedocumented in this encounter
[2025-07-24 14:27] LABS: Hematocrit 37.5 % (42.0-52.0); Hemoglobin 12.5 g/dL (14.0-18.0); Immature Granulocyte Percent A 0.3 % (0-0.5); Lymphocytes Absolute Auto 1.99 K/mm3 (0.9-3.2); Mean Corpuscular HGB Conc 33.3 g/dl (32-36); Mean Corpuscular Hemoglobin 31.6 pg (26-34); Mean Corpuscular Volume 94.7 fl (80-100); Nucleated Red Blood Cells Absolute Auto 0.000 K/mm3 (0.0-0.012); Nucleated Red Blood Cells Perc 0.0 % (0.0-0.2); Platelet Count Result 305 k/mm3 (150-375); Red Blood Count 3.96 M/mm3 (4.6-6.20); White Blood Count 8.7 K/mm3 (4.5-10.0)
[2025-07-24 14:52] LABS: Iron 140 ug/dL (49-181)
[2025-07-24 15:03] LABS: Percent Iron Saturation 49 % (20-50)
[2025-07-24 15:56] LABS: Vitamin B12 408.0 pg/mL (239-931)
== END 2025-07-24 14:09 | disposition home or self-care (01) ==
LOC: ANHLAB 14:09
PROVIDERS: PCP Family Medicine; Visit Provider Student in an Organized Health Care Education/Training Program
DX: D64.9 Anemia, unspecified (principal)
CPT/HCPCS: 36415; 82607; 82746; 83540; 83550; 85025

== ENCOUNTER 2025-08-11 16:18 | Outpatient (RCR) | payer MEDICARE, SELFPAY ==
--- NOTE | 2025-07-29 15:20 | PCPTNOTE ---
Cancelled d/t to transportation issue per front office. AKS
--- NOTE | 2025-07-31 13:42 | PCPTNOTE ---
Pt no call/no showed his appointment this afternoon
--- NOTE | 2025-08-11 14:13 | OPREHPOC ---
Outpatient Therapy Plan of Care This is a Multidisciplinary Plan of Care that may contain components documented by all disciplines (PT, OT, and ST.) PT Problem 1 PT Problem #1 Knowledge Deficit PT Goal 1 Goal / Goal Update *independent with HEP 06-27-25 progress met goal; continue to progress HEP and education 08-11-25 d/c goal met Target Visit 14 Progress Met PT Problem 2 PT Problem #2 Pain PT Goal 1 Goal / Goal Update * pt report pain at worst in back of 03/15 06-27-25 progress met goal Target Visit 10 Progress Met PT Goal 2 Goal / Goal Update *pain rating of 2/10 with increased activity level 08-11-25 d/c goal not met 4/10 at worst Target Visit 16 Progress Not Met PT Problem 3 PT Problem #3 Impaired Strength PT Goal 1 Goal / Goal Update increase trunk and LE strength, to improve mobility skills and safety, to prevent falls: 1* pt transfer sit to stand with use of 1 UE and walker in front of him to reach for support 2* pt static stand for 20 seconds without UE support 3 *increase strength of R LE to 4-/5 4* increase strength of L LE to 4-/5 06-27-25 progress met goals Target Visit 10 Progress Met PT Goal 2 Goal / Goal Update bilateral hip abduction strength of 4/5 08-11-25 d/c goal not met, 4-/5 Target Visit 14 Progress Not Met PT Problem 4 PT Problem #4 Impaired Functional Mobility PT Goal 1 Goal / Goal Update 1* pt ambulate with wheeled walker 50' independent on level surface 06-27-25 progress met goal Target Visit 10 Progress Met PT Goal 2 Goal / Goal Update 1* 2 minute walking test distance of 350' to improve mobility 2* maximum walking distance of 425' 08-11-25 d/c goal not met; 285' for both above Target Visit 14 Progress Not Met
--- NOTE | 2025-08-11 14:13 | PTOPDC ---
Assessment and note entered by Obdulia Velazco, PT Assessment Status Discharge ICD-10 Condition Codes (PT) Pain in low back M54.50,Repeated falls R29.6, Difficulty Walking R26.2,Abnormalities of gait and mobility R26.9,Weakness R53.1 Onset March 2025 Subjective Information back is doing better, do not use the wheelchair as much- only use it a few times a day, when carrying dog or taking his dog food to him; need to get another copy of all of the exercises, to have all together and make sure I have all of them ; saw and said did not need surgery at this time, but may have more back issues in the future; ready to be finished with therapy; Reported Pain Level Pain Score 2: Self Report Additional Pain Score Comments pain range in the past week 0-4/10 increase pain: when first wake up in AM decrease pain: ice is not taking any pain meds; back does not disrupt his sleeping Assessment PT Clinical Summary Juan has received 12 PT sessions. He called/ canceled 1 and did not show for 1 appointment. Compare last assessment to today's assessment: pain rating of low back and both hips, from 2-8/10 to 0-4/10; back index self rating of 54 to 36% limitation in activity level; increase strength of hips, but still have weakness of hip abduction bilateral; static standing time, without use of UE from 60 to 71 seconds; 2 minute walking test distance is the same at 285' with wheeled walker; education for HEP and safety with mobility completed. The goals were partially met. Discharge PT. He is to continue with his HEP and use of wheeled walker . Plan of Care PT Services Indicated No
== END 2025-08-11 16:27 | disposition home or self-care (01) ==
LOC: ANHPT 16:18
PROVIDERS: PCP Family Medicine; Visit Provider Neurological Surgery
DX: M54.16 Radiculopathy, lumbar region (principal); Z98.1 Arthrodesis status
CPT/HCPCS: 97110; 97530

== ENCOUNTER 2025-10-14 11:03 | Outpatient (CLI) | payer MEDICARE, SELFPAY ==
[2025-10-14 11:45] LABS: Hematocrit 37.8 % (42.0-52.0); Hemoglobin 13.0 g/dL (14.0-18.0); Immature Granulocyte Percent A 0.4 % (0-0.5); Lymphocytes Absolute Auto 2.69 K/mm3 (0.9-3.2); Mean Corpuscular HGB Conc 34.4 g/dl (32-36); Mean Corpuscular Hemoglobin 31.9 pg (26-34); Mean Corpuscular Volume 92.6 fl (80-100); Nucleated Red Blood Cells Absolute Auto 0.000 K/mm3 (0.0-0.012); Nucleated Red Blood Cells Perc 0.0 % (0.0-0.2); Platelet Count Result 327 k/mm3 (150-375); Red Blood Count 4.08 M/mm3 (4.6-6.20); White Blood Count 10.1 K/mm3 (4.5-10.0)
[2025-10-14 12:09] LABS: Alanine Aminotransferase 19 U/L (6-50); Albumin Level 4.1 g/dL (3.5-5.1); Alkaline Phosphatase 61 U/L (38-126); Anion Gap 3 mmol/L (4-12); Aspartate Amino Transferase 31 U/L (17-59); Bilirubin,Total 0.6 mg/dL (0.2-1.3); Blood Urea Nitrogen 15 mg/dL (9-20); Calcium 8.7 mg/dL (8.4-10.2); Carbon Dioxide 28 mmol/L (22-30); Chloride 105 mmol/L (98-107); Cholesterol 181 mg/dL (0-200); Estimated Glomerular Filt Rate 59; Glucose 86 mg/dL (65-110); HDL Direct 36 mg/dL; Potassium 3.9 mmol/L (3.4-5.0); Sodium 136 mmol/L (137-145); Total Protein 7.5 g/dL (6.3-8.2); Triglycerides 98 mg/dL (<150)
[2025-10-14 13:20] LABS: Vitamin B12 406.0 pg/mL (239-931)
== END 2025-10-14 11:04 | disposition home or self-care (01) ==
PROVIDERS: Visit Provider Student in an Organized Health Care Education/Training Program
DX: D64.9 Anemia, unspecified (principal); I10 Essential (primary) hypertension; E78.1 Pure hyperglyceridemia
CPT/HCPCS: 36415; 80053; 80061; 82607; 82746; 85025